=== PATIENT | male | born 1945 | race Caucasian/White ===

== ENCOUNTER → 2016-10-22 | Outpatient (CLI) | payer OTHER ==
[~2016-10-22] MED LIST: DABI150C PO; LISI20TA3 PO; METO1TAB68 PO
[2016-10-22 12:26] LABS: BASO % 0.4 %; BASO ABS # 0.03 K/uL (0-0.2); COMPLETE YES; EOS % 1.9 %; HEMATOCRIT 47.6 % (42-52); IG% 0.1 %; LYMPH % 42.2 %; LYMPH ABS # 2.83 K/uL (1.2-3.4); MEAN CELL VOLUME 95.8 fL (80-100); MEAN CORPUSCULAR HEMOGLOBIN 31.2 pg (25-34); MEAN CORPUSCULAR HGB CONC 32.6 g/dl (32-36); MEAN PLATELET VOLUME 11.6 fL (7.4-10.4); MONO % 10.4 %; PLATELET COUNT 196 K/uL (130-400); RED BLOOD COUNT 4.97 M/uL (4.7-6.1); WHITE BLOOD COUNT 6.71 K/uL (4.8-10.8)
[2016-10-22 12:32] LABS: URINE APPEARANCE CLEAR (CLEAR); URINE BILIRUBIN NEG (NEG); URINE COLOR DK YELLOW; URINE NITRITE NEG (NEG); URINE PH 7.5 (4.5-7.5); URINE SPECIFIC GRAVITY 1.024 (1.000-1.030); UROBILINOGEN NEG (NEG); ZZUR CULT IF INDIC CLEAN CATCH NO
[2016-10-22 12:57] LABS: MANUAL MICROSCOPIC REQUIRED? NO; REVIEW REQ? NO; SULFASALICYLIC ACID POS (NEG)
[2016-10-22 13:09] LABS: ALT/SGPT 24 U/L (12-78); AST/SGOT 19 U/L (15-37); BLOOD UREA NITROGEN 13 mg/dl (7-18); BUN/CREATININE RATIO 10.9 (10-20); CALCIUM 8.9 mg/dl (8.5-10.1); CARBON DIOXIDE 31 mmol/L (21-32); CHLORIDE 107 mmol/L (98-107); CHOLESTEROL 172 mg/dl (0-200); GLUCOSE 89 mg/dl (70-99); SODIUM 142 mmol/L (136-145); TRIGLYCERIDES 163 mg/dl (0-150); VERY LOW DENSITY LIPOPROT CALC 33 mg/dl
[2016-10-22 13:12] LABS: ALB/GLOB RATIO 1.3 (0.9-2); ALKALINE PHOSPHATASE 69 U/L (45-117); CHOLESTEROL/HDL RATIO 4.6; HDL CHOLESTEROL 37 mg/dl; LDL CHOLESTEROL CALCULATED 102 mg/dl
[2016-10-22 13:34] LABS: ESTIMATED AVERAGE GLUCOSE 126 mg/dl; HA1C FLAG Normal (Normal)
== END | disposition home or self-care (01) ==
LOC: C.LABBFT 07:17
PROVIDERS: ATTEND Internal Medicine
DX: R73.01 Impaired fasting glucose (principal); E78.5 Hyperlipidemia, unspecified

== ENCOUNTER → 2016-10-26 | Outpatient (CLI) | payer OTHER | END | disposition home or self-care (01) | LOC: C.LABSPEC 10-09 12:35 | PROVIDERS: ATTEND Internal Medicine | DX: Z12.11 Encounter for screening for malignant neoplasm of colon (principal) ==

== ENCOUNTER 2019-08-09 06:31 | Observation (INO) ==
--- NOTE | 2019-07-13 12:57 | PAT Medication Instructions ---
Medication Instructions Date of Service July 13, 2019 Home Medications Medication Instructions Recorded dabigatran etexilate 150 mg capsule 150 mg PO BID #180 cap 11/23/18 tadalafil 10 mg tablet 10 mg PO UD dabigatran etexilate 150 mg capsule 150 mg PO BID lisinopril 20 mg PO QAM metoprolol succinate 100 mg PO QAM ASK your prescriber and surgeon dabigatran etexilate 150 mg capsule 150 mg PO BID -- must be held for at least 5 days prior to surgery (last dose would be 08/02) for spinal anesthesia. Make sure this is OK with your prescriber before stopping. DO NOT take the morning of surgery lisinopril 20 mg PO QAM Take morning of surgery With a small sip of water, OTHERWISE NOTHING TO EAT OR DRINK AFTER MIDNIGHT: metoprolol succinate 100 mg PO QAM Take evening before surgery tadalafil 10 mg tablet 10 mg PO UD (ok to take if needed) Other Notes If you have any questions please call us at [phone] or [phone] or [phone] or [phone]
--- NOTE | 2019-07-13 13:07 | Anesthesiology Consultation ---
Date of Service July 13, 2019 Assessment & Plan (1) Encounter for pre-operative examination: COVID Status: As of 07/11 nurse assessment, patient denies travel to endemic area, known exposure/sick contacts, symptoms, or testing for coronavirus. Chart Review Chart Review: Acceptable Risk for Surgery and Patient seen in Pre Admission Testing Teaching & Discussion Instructed NPO after midnight before surgery, except medications with 15 cc of water. Medication instructions provided according to the PAT guidelines. Patient made aware Pradaxa must be held x 5 days for spinal anesthesia; he will check with his prescriber before stopping. History Surgery Operation Date: 08/09/19 13:10 Proposed Procedures p Left Total Knee Arthroplasty - Tl Rangel MD Height/Weight Height: 5 ft 8 in Weight: 101.7 kg Allergies Allergy/AdvReac Type Severity Reaction Status Date / Time atorvastatin Allergy Mild MUSCLE Verified 07/10/19 08:06 ACHES rosuvastatin Allergy Mild MUSCLE Verified 07/10/19 08:06 ACHES Medications Home Medications Medication Instructions Recorded Confirmed Last Taken tadalafil 10 mg tablet 10 mg PO UD tab 09/27/18 07/10/19 Unknown dabigatran etexilate 150 mg capsule 150 mg PO BID #180 cap 11/23/18 07/10/19 Unknown lisinopril 20 mg PO QAM 04/21/19 07/10/19 Unknown metoprolol succinate 100 mg PO QAM 04/21/19 07/10/19 Unknown Past Medical History Medical History (Updated 07/14/19 @ 13:09 by Luis Carlos Hanley) Atrial [facility]. On Pradaxa. Hyperlipidemia Hypertension Impaired fasting glucose Male erectile disorder of organic origin Osteoarthritis of knee Prediabetes Tinnitus Traumatic wound Right leg traumatic wound secondary to shrapnel in [place] Exercise / Class Metabolic Activity II 4-5 Yardwork/Stairs/Walk up hill (Denies CP or SOBw ith 1 FOS) Past Family History Family History Brother Diabetes Hodgkin disease Mother Ovarian cancer Past Surgical History Surgical History History of tooth extraction S/P cataract extraction R/L S/P total knee arthroplasty Status post right total knee arthroplasty March 2010 in [place], [place] Past Anesthesia History No Hx of Anesthesia Complications and No Family Hx of Anesthesia Complications History of PONV No Hx of PONV and No Hx of Motion Sickness Social History Smoking Status: Former smoker Do You Dip or Chew Tobacco: No Smoking End Date: QUIT AGE 30 YRS Hx Alcohol Use: Yes Alcohol type: wine alcohol intake frequency: a few times a month Hx Substance Use: No substance use type: does not use Review of Systems Pt denies any recent chest pain, shortness of breath, palpitations, cough, fever or URI. Physical Exam Vital Signs BP: 116/80 P: 75bpm SPO2: 96% RA T: 98.2 F R: 16 ENMT Mouth: + dentures and + edentulous Thyromental Distance: > or= 3.5 Finger Breadths (3.5) Mallampati Class: I Neck normal visual inspection and + facial hair (states will be shaved prior to surgery); neck extension not limited Respiratory normal respiratory effort Auscultation: lungs clear to auscultation bilaterally Cardiovascular Rate/Rhythm: regular rate; + abnormal rhythm (irregularly irregular) Heart Sounds: no murmur Extremities: no edema Testing Laboratory Results 07/13/19 13:21 07/13/19 13:21 PT 12.5 Seconds (9.0-12.0) H 07/13/19 13:21 INR 1.2 (0.9-1.1) H 07/13/19 13:21 APTT 42.7 Seconds (21.0-31.0) H 07/13/19 13:21 Urine Color Dark Yellow 07/13/19 Unknown Urine Appearance Clear (Clear) 07/13/19 Unknown Urine pH 5.0 (4.5-7.5) 07/13/19 Unknown Ur Specific Coulters 1.021 (1.000-1.030) 07/13/19 Unknown Urine Protein Negative (Negative) 07/13/19 Unknown Urine Glucose (UA) Negative (Negative) 07/13/19 Unknown Urine Ketones Negative (Negative) 07/13/19 Unknown Urine Nitrite Negative (Negative) 07/13/19 Unknown Ur Leukocyte Esterase Negative (Negative) 07/13/19 Unknown Blood Type A Negative 07/13/19 13:21 Antibody Screen NEGATIVE 07/13/19 13:21 Electrocardiogram Date: 07/13/19 Findings: + AFIB @ (67bpm) Chest X-Ray Date: 07/13/19 Findings: + NAD
--- NOTE | 2019-07-13 13:47 | XRay Report ---
XR chest Pre-admission PA/Lat CLINICAL HISTORY: PAT COMPARISON STUDY: No previous studies for comparison. FINDINGS: The bones soft tissues and hemidiaphragms are normal. The cardiomediastinal silhouette is n ormal. The lungs are clear. The pulmonary vasculature is normal. IMPRESSION: Negative chest. ACT 112: Negative or not required by law. The above report was generated using voice recognition software. It may contain grammatical, syntax or spelling errors. Electronically signed by: Chirag Bonds M.D. 07/13/2019 1:46 PM
[2019-07-13 14:52] LABS: Basophils # (auto) 0.03 K/uL (0-0.2); Basophils % (auto) 0.6 %; Eosinophils % (auto) 1.8 %; Hematocrit (blood only) 43.6 % (42-52); Hemoglobin 14.7 g/dL (14.0-18.0); Lymphocytes # (auto) 2.35 K/uL (1.2-3.4); Lymphocytes % (auto) 43.2 %; Mean Corpuscular Hemoglobin 31.4 pg (25-34); Mean Corpuscular Hgb Conc 33.7 g/dL (32-36); Mean Corpuscular Volume 93.2 fL (80-100); Mean Platelet Volume 11.8 fL (7.4-10.4); Monocytes % (auto) 9.2 %; Neutrophils # (auto) 2.46 K/uL (1.4-6.5); Neutrophils % (auto) 45.2 %; Platelet Count 187 K/uL (130-400); RDW Coefficient of Variation 13.3 % (11.5-14.5); RDW Standard Deviation 45.4 fL (36.4-46.3); Red Blood Count 4.68 M/uL (4.7-6.1); White Blood Count 5.44 K/uL (4.8-10.8)
[2019-07-13 15:12] LABS: INR 1.2 (0.9-1.1); Partial Thromboplastin Ratio 1.5; Partial Thromboplastin Time 42.7 Seconds (21.0-31.0); Prothrombin Time 12.5 Seconds (9.0-12.0)
[2019-07-13 15:20] LABS: BUN Creatinine Ratio 13.5 (10-20); Calcium 8.9 mg/dl (8.5-10.1); Creatinine Clr Calc Pharmacy 64.2 ml/min; Est GFR (African American) 71.7; Est GFR (Non-African American) 61.9
[2019-07-13 16:18] LABS: Appearance Urine Clear (Clear); Bilirubin Urine Negative (Negative); Blood Urine Negative (Negative); Color Urine Dark Yellow; Glucose Urine UA Negative (Negative); Ketones Urine Negative (Negative); Leukocyte Esterase Urine Negative (Negative); Nitrite Urine Negative (Negative); Protein Urine Negative (Negative); Specific Gravity Urine 1.021 (1.000-1.030); Urobilinogen Urine Negative (Negative)
--- NOTE | 2019-07-13 17:07 | Electrocardiogram Report ---
Test Reason : Blood Pressure : / mmHG Vent. Rate : 067 BPM Atrial Rate : 026 BPM P-R Int : 000 ms QRS Dur : 080 ms QT Int : 402 ms P-R-T Axes : 000 058 025 degrees QTc Int : 424 ms Atrial fibrillation Abnormal ECG When compared with ECG of 10-DEC-2011 08:52, Atrial fibrillation has replaced Sinus rhythm Questionable change in QRS axis Nonspecific T wave abnormality, improved in Inferior leads Nonspecific T wave abnormality no longer evident in Lateral leads Confirmed by Raji Collins ([id number]) on 07/13/2019 5:07:25 PM Referred By: Tl Rangel Confirmed By:Raji Collins
--- NOTE | 2019-07-19 16:06 | History & Physical Report ---
Date of Service July 19, 2019 Assessment & Plan (1) Degenerative arthritis of left knee: Postoperative prescriptions for Percocet will be provided at discharge from the hospital. The patient has already seen his PCP as well as electromechanical engineer. He will hold his Pradaxa for 5 days prior to surgery. Anticipate discharge to home with home health services. Prescription was provided for a walker. The patient is aware of the COVID-19 risks associated with surgery. He is currently asymptomatic of any COVID-19 symptoms. He has had no known contacts. The patient will have nasal swab testing for COVID-19 prior to surgery and results will be made available to him before proceeding. History of Present Illness Chief Complaint: Left knee pain Primary Care Provider: Rodriguez Presley MD This 73-year-old white male presents today with a longstanding history of left knee pain, for over 7 years. Pain has become worse with time. He is scheduled to undergo a left knee total knee arthroplasty on 08/09/2019. He has tried activity modification, oral pain medication, oral anti-inflammatories, viscosupplementation, and cortisone injections. They are no longer providing comfort. Pain is worse with weightbearing and ambulation. Pain is affecting his ADLs. He denies any numbness or tingling. The patient has a history of right total knee arthroplasty done elsewhere greater than 8 years ago. He elects to proceed with the same on the left. Preoperative imaging has been obtained. Allergies Allergy/AdvReac Type Severity Reaction Status Date / Time atorvastatin Allergy Mild MUSCLE Verified 07/10/19 08:06 ACHES rosuvastatin Allergy Mild MUSCLE Verified 07/10/19 08:06 ACHES Home Medications Home Medications Medication Instructions Recorded Confirmed Type tadalafil 10 mg tablet 10 mg PO UD tab 09/27/18 07/10/19 History dabigatran etexilate 150 mg capsule 150 mg PO BID #180 cap 11/23/18 07/10/19 Rx lisinopril 20 mg PO QAM 04/21/19 07/10/19 History metoprolol succinate 100 mg PO QAM 04/21/19 07/10/19 History Past Med/Surg History Medical History Atrial fibrillation Follows with DR [facility]. On Pradaxa. Hyperlipidemia Hypertension Impaired fasting glucose Male erectile disorder of organic origin Osteoarthritis of knee Prediabetes Tinnitus Traumatic wound Right leg traumatic wound secondary to shrapnel in [place] Surgical History History of tooth extraction S/P cataract extraction R/L S/P total knee arthroplasty Status post right total knee arthroplasty March 2010 in [place], [place] Family History (Updated 07/19/19 @ 16:02 by Ike Freitas PA-C) Brother Diabetes Hodgkin disease Mother Ovarian cancer Father Heart disease Social History Preferred Language: Malay Chief Orthoptist Required: No Beliefs That Will Affect Care: None marital status: Current Living Situation: Spouse current occupational status: 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 General: Well-developed, well-nourished, elderly white male in no acute distress. Sitting in a chair. Alert and oriented. Skin: Warm and dry with good turgor. No rashes or lesions. No ecchymosis or erythema. Surgical scar present on his right knee. HEENT: Normocephalic, atraumatic. Eyes: PERRLA, EOMI. Oropharynx and nares exam deferred due to COVID precautions. Heart: Irregularly irregular. No murmurs, gallops or rubs. Lungs: Clear to auscultation bilaterally, no crackles, rhonchi or wheezing, good air movement. Abdomen: Mildly obese, bowel sounds present x4, soft, nontender. No organomegaly. No masses. Musculoskeletal: Left knee evaluation reveals no intraarticular effusion. No redness or warmth. He has full terminal extension. Flexion to greater than 110 degrees. Strength is 5/5 with good quad tone. Varus alignment. He has focal discomfort with palpation over the medial joint line. No lateral joint line discomfort with palpation today. Stable collateral ligaments. No defect in the patellar tendon or quadriceps tendon. Ambulates with a slightly antalgic gait. Neurologic: Gross sensation is intact across both lower extremities by soft touch. Peripheral pulses are 2+. Results & Data Results & Data ([facility]) Diagnostic Findings Radiographic imaging obtained today was reviewed by me and will be read by radiology. He has significant degenerative changes in the left knee with periarticular osteophytes, subchondral sclerosis, and joint space narrowing. He is almost [id number] in the medial compartment. Slight varus alignment.
[~2019-08-09 06:31] MED LIST changes: +CEFAZOLIN 2000MG 2,000 MG/15 ML SYR IV SCH; -DABI150C PO; -LISI20TA3 PO; +LR 500ML BOLUS, THEN 15ML/HR IV SCH; +LR 60ML/HR IV SCH; -METO1TAB68 PO; +ROPIVACAINE 0.5% HCL/PF 150 MG, BUPIVACAINE 0.5% MPF 30 ML, EPINEPHrine 0.15 MG, Ketoro... INFIL SCH; +TRANEXAMIC ACID 1,000 MG **IV Pre-op IV SCH; +TRANEXAMIC ACID 1,000 MG x 1 **For Topical Use TOP SCH
--- NOTE | 2019-08-09 06:53 | History & Physical Bridge Note ---
Date of Service August 09, 2019 History & Physical Bridge Note I have examined the patient, reviewed the History & Physical and in the interval since the performance of the History & Physical I have noted the following changes of clinical significance: consent obtained/site marked/covid screen negative.no changes noted
[2019-08-09] MEDS ORDERED: BUPIVACAINE 0.5 % 5 MG/1 ML PF 10ML VIAL ONE (07:24)
[2019-08-09] MEDS ORDERED: ROPIVACAINE 0.5% 5 MG/ML 30 ML VIAL ONE (07:24)
[2019-08-09] MEDS ORDERED: EPINEPHrine INJ 1 MG/ML AMP ONE (07:24)
[2019-08-09] MEDS ORDERED: fentaNYL citrate 100 MCG/2 ML VIAL ONE (07:43)
[2019-08-09] MEDS ORDERED: PROPOFOL IV EMULSION 10 MG/ML 20 ML VIAL IV ONE (07:43)
[2019-08-09] MEDS ORDERED: LIDOCAINE HCL 2% 2 ML VIAL/AMP(20MG/ML) INFIL ONE (07:43)
[2019-08-09] MEDS ORDERED: MIDAZOLAM HCL 1 MG/ML 2ML VIAL ONE ×2 (07:43→09:17)
[2019-08-09] MEDS ORDERED: ORTHO JOINT ANESTHETIC ONE (08:37)
[2019-08-09] MEDS ORDERED: ePHEDrine sulfate 50 MG/ML AMP IV PRN (08:46)
[2019-08-09] MEDS ORDERED: ATROPINE SULFATE 0.1 MG/ML 10ML SYR IV PRN (08:46)
--- NOTE | 2019-08-09 10:36 | Post Operative Brief Note ---
Immediate Post Op Note v1 Date of Surgery August 09, 2019 Pre & Post Diagnosis Operation Date: 08/09/19 08:50 Pre-Op Diagnosis: Left Knee Degenerative Joint Disease Post-Op Diagnosis: Left Knee Degenerative Joint Disease I identified the patient and participated in the time-out.: Yes Procedure Operation Date: 08/09/19 08:50 Actual Procedures p Left Total Knee Arthroplasty, Cemented(Left) - Tl Rangel MD Surgeon Tl Rangel MD Revenue Collector eli/heena Estimated Blood Loss 25 Findings Consistent with Post-Op Diagnosis
--- NOTE | 2019-08-09 10:43 | Operative Report ---
Post Operative Report Pre & Post Diagnosis Operation Date: 08/09/19 08:50 Pre-Op Diagnosis: Left Knee Degenerative Joint Disease Post-Op Diagnosis: Left Knee Degenerative Joint Disease I identified the patient and participated in the time-out.: Yes Procedure Operation Date: 08/09/19 08:50 Actual Procedures p Left Total Knee Arthroplasty, Cemented(Left) - Tl Rangel MD Surgeon HOWARD Rangel MD Evp [employer] Experience Strategy eli/heena Estimated Blood Loss 25 Findings Consistent with Post-Op Diagnosis Specimens see operative report Drains none Complications none Disposition Accompanied Patient To Recovery: Yes Disposition: Recovery Room Indications This 73-year-old white male presented to the office with complaints of persisting left knee pain. He had tried conservative care measures without improvement. He previously had a right total knee arthroplasty and has done well with that. He elected to proceed with the same on the left. Preoperative imaging was obtained. Description of Procedure Patient was given a spinal anesthetic and then taken to the operating room where he was given sedation. He was prepped and draped in the usual sterile fashion. Please see Dr. Rangel's operative report for specifics of the procedure. I was present for the entire case from initial patient positioning through final wound closure. Assistance was provided in tissue retraction, hemostasis, trial implant placement, final implant placement, and final wound closure. Patient was taken to the recovery room in satisfactory condition. I attest to the content of the Intraoperative Record and any orders documented therein. Any exceptions are noted below.
--- NOTE | 2019-08-09 11:15 | XRay Report ---
TWO VIEWS LEFT KNEE CLINICAL HISTORY: Postoperative examination. FINDINGS: AP and crosstable lateral portable views of the left knee are obtained. A left knee arthrop lasty is in near anatomic alignment. There has been undersurface remodeling of the patella. No acute fracture is seen. There are expected postoperative changes around the knee including skin clips, soft tissue edema, and subcutaneous gas. IMPRESSION: Expected postoperative changes status post left knee arthroplasty. No acute fracture is s een. ACT 112: Negative or not required by law. Electronically signed by: Jose Carlos Orona M.D. 08/09/2019 11:14 AM
--- NOTE | 2019-08-09 11:22 | Operative Report (OR) ---
DATE OF OPERATION: 08/09/2019 SURGEON: Tl Rangel MD. MICA INSPECTOR: Dr. Ibrahim. SECOND MICA INSPECTOR: Ike Freitas PA-C. PREOPERATIVE DIAGNOSIS: Osteoarthritis, left knee. POSTOPERATIVE DIAGNOSIS: Osteoarthritis, left knee. OPERATION PERFORMED: Cemented left total knee replacement. SUMMARY OF IMPLANTS: Four narrow left femur, posterior cruciate substituting 4 mobile bearing tray, size 4 spacer 4 x 10 mm posterior cruciate substituting oval dome 3 peg patella size 41, 2 bags of Palacos G cement. ESTIMATED BLOOD LOSS: 25 mL. CRYSTALLOID: Per Anesthesia. BONE PATHOLOGY: Pending. DESCRIPTION OF PROCEDURE: The patient appropriately identified, site verified, consent verified. Antibiotics confirmed as being given. Left lower extremity was prepped and draped in usual routine fashion. Midline exposure was utilized. Parapatellar arthrotomy was performed. Synovectomy completed. Osteophytes along the medial margin of the femur and superior margin of the femur resected. There was grade 4 disease on the entire medial half of the tibia and on the weightbearing surface of the medial compartment. There was grade 3 disease on the entire patellar surface, grade 4 disease on the medial trochlea. Lateral compartment was relatively healthy. Cruciates were resected. The menisci resected. The distal femur was then resected 12 mm, the proximal tibia resected 4 mm. The extension gap was excellent. Femur was sized to 4. Appropriate cutting block applied and the anterior and posterior condylar and chamfer cuts made. The flexion gap was excellent. Tibia was then broached and reamed to a size 4 and size 4 tibia and femur placed. Patella tracked well. The patella was resected leaving 15 mm and a 41 button was best. Seating holes made and the trial tracked well. The Orthomix was then injected all around the knee. The trial elements were removed. The knee was then soaked in the TXA for 2 minutes and then the knee irrigated with Betadine and Pulsavac and then the permanent cemented in position. Tibia, femur and patella in that order. At 14 minutes, the tourniquet deflated. Minor bleeding points controlled with electrocautery. EBL was roughly 25 mL. The trial spacer was removed. No cement removal was required. Wound was irrigated one final time. The permanent liner seated. The knee reduced and then closed at 30-40 degrees of flexion with #2 Vicryl, 2-0 Vicryl and stainless steel clips. Appropriate dressing applied and the patient transferred to Recovery Room in satisfactory condition having tolerated the procedure well. PERIOPERATIVE SITUATION: Medically cleared male with intractable knee pain with physical exam and x-ray now consistent with medial compartment disease. He has failed conservative management for years. Has knee replacement on the right and wants to have knee replacement on the left. I attest to the content of the Intraoperative Record and any orders documented therein. Any exception s are noted below.
--- NOTE | 2019-08-09 11:53 | Anesthesiology Progress Note ---
Date of Service August 09, 2019 Anesthesia Post Procedure Vital Signs Vital Signs: Temp Pulse Pulse Resp BP BP Pulse Ox 08/09/19 11:45 73 13 114/75 96 08/09/19 11:30 36.3 C L 68 12 122/72 99 08/09/19 11:20 67 13 104/74 99 08/09/19 11:10 80 19 102/76 99 08/09/19 11:00 77 12 103/65 98 08/09/19 10:50 86 15 97/55 L 98 08/09/19 10:43 36.0 C L 99 H 12 100/63 97 08/09/19 08:05 70 20 126/73 96 08/09/19 06:54 37.1 C 74 18 135/81 97 Pain Intensity Left Knee: Pain Intensity: 0 Transfer of Care Handoff Completed per policy Notes Mental Status: alert / awake / arousable Patient Amnestic to Procedure: Yes Nausea / Vomiting: adequately controlled Pain: adequately controlled Airway Patency, RR, SpO2: stable & adequate BP & HR: stable & adequate Hydration State: stable & adequate Neuraxial Anesthesia: was administered and sensory block is resolving Anesthetic Complications: no major complications apparent
[2019-08-09] MEDS ORDERED: OXYCODONE HCL IR 5 MG TAB (IMMEDIATE RELEASE) PO PRN (12:37)
[2019-08-09] MEDS ORDERED: MAGNESIUM HYDROXIDE SUSP 30 ML UDC PO PRN (12:37)
[2019-08-09] MEDS ORDERED: ONDANSETRON INJ 2 MG/ML 2 ML VIAL IV PRN (12:37)
[2019-08-09] MEDS ORDERED: ALUMINUM/MAGNESIUM SUSP 30 ML UDC PO PRN (12:37)
[2019-08-09] MEDS ORDERED: DiphenhydrAMINE HCL 50 MG/ML VIAL IV PRN (12:37)
[2019-08-09] MEDS ORDERED: TAMSULOSIN HCL 0.4 MG CAP PO PRN (12:37)
[2019-08-09] MEDS ORDERED: NON-FORMULARY MEDICATION (Tadalafil 10 MG) PO SCH (12:37)
[2019-08-09] MEDS ORDERED: HYDROmorphone INJ 0.5 MG/0.5 ML SYR IV PRN (12:37)
[2019-08-09] MEDS ORDERED: bisacodyL 10 MG SUPP PR PRN (12:37)
[2019-08-09] MEDS ORDERED: NALOXONE HCL 0.4 MG/1 ML VIAL/CARP IV PRN (12:37)
[2019-08-09] MEDS ORDERED: METOCLOPRAMIDE HCL INJ 5 MG/ML 2 ML VIAL IV PRN (12:37)
--- NOTE | 2019-08-09 12:53 | Operative Report ---
Post Operative Report Pre & Post Diagnosis Operation Date: 08/09/19 08:50 Pre-Op Diagnosis: Left Knee Degenerative Joint Disease Post-Op Diagnosis: Left Knee Degenerative Joint Disease I identified the patient and participated in the time-out.: Yes Procedure Operation Date: 08/09/19 08:50 Actual Procedures p Left Total Knee Arthroplasty, Cemented(Left) - Tl Rangel MD Surgeon Tl Rangel MD Bell Spinner Sousaphones eli/heena Estimated Blood Loss 25 Findings Consistent with Post-Op Diagnosis Specimens left knee bone cuts Complications none Disposition Accompanied Patient To Recovery: Yes Disposition: Recovery Room Description of Procedure Supine, standard prep and drape, tourniquet, time out Left Total Knee Arthroplasty, Cemented Please see Dr Rangel's procedure notes for specific details I was present throughout the case, assisted for wound closure and transferred the patient to PACU in stable condition I attest to the content of the Intraoperative Record and any orders documented therein. Any exceptions are noted below.
--- NOTE | 2019-08-09 13:22 | Progress Notes ---
DATE: 08/09/2019 SUBJECTIVE: Postop check status post left knee replacement. The patient is doing well, has no issues. He is sitting up, eating lunch. Denies chest pain, shortness of breath, fever, chills, nausea, vomiting or headache. OBJECTIVE: Vital signs are stable, he is afebrile. Postop x-rays look excellent. ASSESSMENT: Doing well. Discharge plans for tomorrow. To be evaluated by case management.
[2019-08-09] MEDS: SODIUM CHLORIDE 0.9% 1000ML 1,000 ML IV SCH (13:52)
[2019-08-09] MEDS: ACETAMINOPHEN 500 MG TAB PO SCH ×2 (13:52→21:47)
[2019-08-09] MEDS: KETOROLAC TROMETHAMINE 15 MG/ML VIAL IV SCH ×2 (13:53→18:51)
--- NOTE | 2019-08-09 14:09 | Discharge Summary (DS) ---
CHIEF COMPLAINT: Left knee pain. HISTORY OF PRESENT ILLNESS: The patient underwent elective left total knee arthroplasty. Hospital course has been uneventful. He will resume his Pradaxa as usual. He denied any issues with the procedure. His postoperative x-rays look excellent. PAST MEDICAL HISTORY: Remarkable for atrial fibrillation, hyperlipidemia, hypertension, erectile dysfunction, osteoarthritis, prediabetes, tinnitus, traumatic wound to right leg with shrapnel in [place]. PAST SURGICAL HISTORY: Remarkable for cataract surgery, right total knee replacement in 2010 in [place]. FAMILY HISTORY: Reveals his brother had Hodgkin's disease, diabetes. Mother had ovarian cancer. Father had heart disease. SOCIAL HISTORY: Reveals that he is . 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 Feels safe at home. Quit smoking years ago, secondhand exposure from his parents. Social history of alcohol. REVIEW OF SYSTEMS: Reveals no chest pain, shortness of breath, fever, chills, nausea, vomiting or headache. ASSESSMENT: Doing well status post left total knee arthroplasty. Continue with postoperative care pathway. Discharge tomorrow if he does well overnight.
[2019-08-09] MEDS: CEFAZOLIN 2000MG 2,000 MG/15 ML SYR IV SCH (16:18)
[2019-08-09] MEDS: FERROUS GLUCONATE 324 MG TAB PO SCH (16:19)
[2019-08-09] MEDS: ASCORBIC ACID 500 MG TAB PO SCH (16:19)
[2019-08-09] MEDS ORDERED: SENNA 8.6 MG TAB PO SCH (21:00)
[2019-08-09] MEDS: DOCUSATE SODIUM 100 MG CAP PO SCH (21:47)
[2019-08-10] MEDS: CEFAZOLIN 2000MG 2,000 MG/15 ML SYR IV SCH (00:14)
[2019-08-10] MEDS: KETOROLAC TROMETHAMINE 15 MG/ML VIAL IV SCH ×2 (00:15→05:41)
[2019-08-10] MEDS: SODIUM CHLORIDE 0.9% 1000ML 1,000 ML IV SCH (00:16)
[2019-08-10 05:35] LABS: Hematocrit (blood only) 37.5 % (42-52); Hemoglobin 12.8 g/dL (14.0-18.0); Mean Corpuscular Hemoglobin 31.5 pg (25-34); Mean Corpuscular Hgb Conc 34.1 g/dL (32-36); Mean Corpuscular Volume 92.4 fL (80-100); Mean Platelet Volume 11.1 fL (7.4-10.4); Platelet Count 159 K/uL (130-400); RDW Coefficient of Variation 13.4 % (11.5-14.5); RDW Standard Deviation 45.2 fL (36.4-46.3); Red Blood Count 4.06 M/uL (4.7-6.1); White Blood Count 11.84 K/uL (4.8-10.8)
[2019-08-10] MEDS: ACETAMINOPHEN 500 MG TAB PO SCH (05:41)
[2019-08-10 06:13] LABS: BUN Creatinine Ratio 14.6 (10-20); Calcium 8.3 mg/dl (8.5-10.1); Creatinine Clr Calc Pharmacy 55.4 ml/min; Est GFR (African American) 60.2; Est GFR (Non-African American) 51.9; Potassium 4.6 mmol/L (3.5-5.1)
[2019-08-10] MEDS ORDERED: dexAMETHasone 10 MG in SYRINGE 0 ML IV SCH (08:00)
--- NOTE | 2019-08-10 08:20 | Progress Notes ---
DATE: 08/10/2019 SUBJECTIVE: Postop check status post left total knee replacement. He is doing well, has no major issues. He has excellent motion, excellent strength. Neurovascular check is normal. Hematocrit stable. Denies any chest pain, shortness of breath, fever, chills, nausea, vomiting or headache. ASSESSMENT: Overall, doing well. PLAN: To discharge home today as well as standard anticoagulation that he was on preoperatively. Start that 24 hours postop. Follow up in 2 weeks for staple removal.
--- NOTE | 2019-08-10 08:22 | Orthopedic Progress Note ---
Date of Service August 10, 2019 Assessment & Plan (1) S/P total knee replacement using cement: Left knee dressing was changed today by me. New pressure dressing was applied. PT/OT this morning. Anticipate discharge to home today with home health services. Resume his Pradaxa today. Follow-up in the office in 2 weeks as scheduled for staple removal. Call the office with any other concerns. Admission and Anticipated Discharge Date Admission Date: August 09, 2019 Subjective Patient is seen in his room this morning. States he has no discomfort. Denies any chest pain, shortness of breath, nausea, vomiting, or abdominal pain, overnight. He feels ready for discharge to home. Knee pain is tolerable. Review of Systems Review of Systems: unchanged from yesterday Physical Exam Physical Exam: General: Well-developed, well-nourished, elderly white male, in no acute distress. Laying on the bed. Alert and oriented. Skin: Warm dry with good turgor. No rashes or lesions. Expected postoperative edema at his left knee. Musculoskeletal: Postoperative dressings are dry. Upon removal, he has scant dried drainage on the dressings. No active bleeding. [place] are intact. Wound edges are well approximated. Expected postoperative edema. No ecchymosis yet. Patient is able to perform a straight leg raise. Intact motor function to his toes and ankle. Neurologic: Gross sensation is intact across both lower extremities by soft touch. Peripheral pulses are 2+. Results & Data ([facility]) Vital Signs (Past 12 Hours) Vital Signs Temp Pulse Resp BP Pulse Ox 08/10/19 07:39 36.4 C L 74 16 124/74 95 08/10/19 04:10 36.6 C 72 18 126/71 95 08/09/19 23:25 36.8 C 85 20 123/79 95 Laboratory Results H&H obtained this morning are 12.8 and 37.5. BMP is unremarkable.
[2019-08-10] MEDS: DOCUSATE SODIUM 100 MG CAP PO SCH (08:25)
[2019-08-10] MEDS: FERROUS GLUCONATE 324 MG TAB PO SCH (08:26)
[2019-08-10] MEDS: ASCORBIC ACID 500 MG TAB PO SCH (08:26)
[2019-08-10] MEDS ORDERED: lisinopriL 20 MG TAB PO SCH (09:00)
[2019-08-10] MEDS ORDERED: MULTIVITAMIN TAB PO SCH (09:00)
[2019-08-10] MEDS ORDERED: METOPROLOL SUCC 50MG EXT REL TAB PO SCH (09:00)
[2019-08-10] MEDS ORDERED: DABIGATRAN ETEXILATE 75 MG CAP PO SCH (09:00)
== END 2019-08-10 11:03 | disposition home health service (06) ==
LOC: 3E 06:31 → ASU 06:31

== ENCOUNTER 2024-12-12 11:23 | Inpatient (IN) ==
[2024-12-12] MEDS ORDERED: SODIUM CHLORIDE 0.9% 100 ML IV PRN (11:46)
--- NOTE | 2024-12-12 11:57 | Emergency Department Note ---
Impression & Plan Symptomatic anemia, AL amyloidosis, Near syncope, Atrial fibrillation, Fall down stairs ED Provider Note NAME: DOLORES MONTERO AGE: 79 SEX: M : 1945 ARRIVES VIA: Walk-In INFORMANT: Patient ED PROVIDER(S): Parveen Denton MD CHIEF COMPLAINT: Near syncope, weakness, referred. PLAN: Disposition: Admit MEDICAL DECISION MAKING: The patient is a pleasant 79-year-old gentleman with a past medical history of atrial fibrillation on Pradaxa, history of amyloidosis, hypertension, hyperlipidemia who presents to the emergency department via walk-in accompanied by his referred by his cardiology office after he had presented there for assessment of episodes of weakness and near syncope. Patient had reported that a week ago he had had an episode and rolled down his carpeted stairs. The patient's insisted he come to the hospital at that time but he had declined as he did not feel any pain. Over the course of a couple of days the patient continued to appear normal and had normal mentation and normal ambulation and so they suspected he did not suffer any serious injury. They add that the patient has had extensive testing outpatient for GI bleeding which he understands has been negative. He denies blood in his stool. He reports the stool is black but he is due to taking oral iron supplements. He has that he had "scans" of his chest and abdomen in the past week after his fall down the stairs and so he suspected he had no injuries. However, today they were preparing to come to their schedule appointment, however with cardiology and he did have an episode of lightheadedness and nausea but did not vomit. On evaluation the patient no acute distress, afebrile with heart in the 100s and vital signs otherwise stable. He exhibits mild pallor. He appears clinically dry. Head is atraumatic. There is no CT L-spine test palpation or step-offs. No distracting injuries. He exhibits normal strength in all extremities without focal deficits. He exhibits chronic left shoulder pain with limited range of motion. EKG without overt acute ischemia. CXR negative for acute cardiopulmonary process per my personal preliminary review/interpretation. WBC 11K with neutrophilia but no left shift, nonspecific. Platelets wnl. H/H is low at 5.2/17.1. Patient did consent to blood transfusion. Unfortunately, due to the patient's Darzalex treatment for his amyloidosis patient's antibody screen was unable to be cleared for transfusion for local products and per blood bank required send out to [facility] for further clarification. It was anticipated to take approximately 4-6 hours for this. Given the patient was hemodynamically stable with suspected chronic gradual anemia emergent transfusion with massive transfusion protocol was deferred given we are unable to definitively identify presence or absence of antigens at this time. Chemistry without metabolic acidosis. LFTs unremarkable. CPK 347. Initial high sensitivity troponin 68 with repeat, 69, stable and nonspecific lipase within normal limits. TSH within the limits. CT of the head, C-spine, chest, abdomen pelvis were negative for acute abnormalities. Patient and did agree with plan for admission for further management. Case was discussed [place]. [place] [facility], who will evaluate the patient for admission. Further management per admitting team. Triage Nursing notes reviewed and agree them. Prior/external medical records reviewed Vital Signs: reviewed Differential diagnosis: Infection, dehydration, metabolic abnormality, hypo/hyperglycemia, electrolyte disturbance, anemia, hypoxia, cardiac sources, intracerebral event, toxicologic, neurologic, as well as other pathologies. ER treatment provided: See below. Diagnostics interpreted by me: ECG: Atrial fibrillation, 96 bpm, no ectopy, right bundle wrench block, T wave abnormality, no overt ST elevation or depression, QTc 525, QRS 134. Similar to December 01, 2024. Cardiac Monitoring: An order for continuous cardiac monitoring was placed and demonstrated Atrial fibrillation, 96 bpm, no ectopy. Laboratory studies: See below Imaging studies: See below Consultation(s): Case was discussed with Dr. Hills [facility] [place], who will evaluate the patient for admission. HPI: Per MDM. ROS: See above HPI for pertinent positives & negatives. A total of 10 systems reviewed and were otherwise negative. VITALS:See Below PHYSICAL EXAMINATION: Primary Survey Airway: Intact Breathing: Normal, breath sounds equal bilaterally Circulation: Skin warm, distal pulses 2+, capillary refill less than 2 seconds Disability Pupils: Equal and reactive to light. GCS: 15, E = 5 V=5 M= 5 Motor Function: Moves all extremities. Sensory: No deficits Secondary Survey GEN: Well developed and well-nourished, mild pallor. HEAD: Normocephalic, atraumatic. EYES: Pupils round reactive to light, conjunctiva clear, extraocular movements intact, no raccoons eyes ENT: No fluid in external acoustic canals, no hemotympanum, no sim's sign, nares patent, no septal hematoma, oropharynx clear NECK: No JVD, midline trachea, No midline tenderness to palpation or step-offs. HEART: Regular rate and rhythm LUNGS: Clear to auscultation bilaterally. CHEST: Chest wall non-tender, no bruising/deformity ABD: No Du-Gong's or Nichols's sign, soft, non-tender, no rebound or guarding, PELVIS: Stable to rock BACK: No step offs or deformities, T-L spine non tender EXT: 2+ global pulses, moving all extremities well, +5/5 muscle strength globally NEURO: Normal sensorium. Cranial nerves II-XII grossly intact. 5/5 strength and SILT x 4 extremities. ED COURSE: Critical Care: I have personally spent greater than 35 minutes of critical care time in the direct management of this patient. This includes bedside care, interpretation of diagnostic studies, and testing, discussion with consultants, patient, and family members, and other required patient management activities. This 35 minutes is in excess of all separately billable procedures. 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 Smalls Prediabetes Anemia Cardiac amyloidosis Degenerative arthritis BPH (benign prostatic hyperplasia) Maintenance chemotherapy First of every month CAD (coronary artery disease) CKD (chronic kidney disease) stage 3, GFR 30-59 ml/min Atrial fibrillation, permanent Follows with [facility] cardio Male erectile disorder of organic origin Traumatic wound Hx Right leg traumatic wound secondary to shrapnel in [place] Surgical History History of total knee replacement R/L Hx of cardiac catheterization (11/04/22) Prior to amloidosis dx- no stents History of bone marrow biopsy History of biopsy of kidney History of tooth extraction S/P cataract extraction R/L Family History Brother Hodgkin disease Diabetes Mother Ovarian cancer Father Heart disease Myocardial infarction Sister Breast cancer Grandfather Myocardial infarction Other No family history of adverse response to anesthesia Denies family history of Prostate cancer Colorectal cancer Pulmonary embolism Social History Smoking Status: Former smoker Tobacco Type: Cigarettes Age Started Using Tobacco: 16; Age Quit Using Tobacco: 33; packs per day: 1.5; Cigarettes Per Day: 1.5 packs a day.; Second Hand Exposure: Yes; Do You Dip or Chew Tobacco: No; Hx Alcohol Use: Yes Alcohol type: wine Alcohol Intake Frequency: Monthly or Less Hx Substance Use: No Preferred Language: Albanian Communication Ability: Effective Visual Impairment: No Limitations Hearing Ability: Use of Hearing Aid Watch Assembler Required: No Beliefs That Will Affect Care: None marital status: Current Living Situation: Spouse 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 How many Children do You have: 0 Feels Safe at Home: Yes Childhood Exposure to Second-Hand Smoke: Yes Diet: gluten free and other Diet Comment: dairy free & gluten free only due to how spouse eats during the past year weight has: remained stable Dental Care, Regularly: No Physical Activity Frequency: Daily Physical Activity Frequency Comment: muscle strengthening, 20 minutes Seatbelt Use: always Sunscreen Use: Yes Do you think of yourself as: straight/heterosexual Gender Identity: Male Assistive Devices: Cane Allergies Allergies Allergy/AdvReac Type Severity Reaction Status Date / Time montelukast AdvReac Severe Brain fog Verified 12/12/24 10:44 atorvastatin AdvReac Intermediate Muscle Verified 12/12/24 10:44 aches rosuvastatin AdvReac Intermediate Muscle Verified 12/12/24 10:44 aches tramadol AdvReac Fatigued Verified 12/12/24 10:44 spironolactone AdvReac Unknown Uncoded 12/12/24 10:44 Home Meds Home Medications Medication Instructions Recorded Confirmed acetaminophen 650 mg 650 mg PO DIRECTED 10/30/23 12/12/24 tablet,extended release (Tylenol 8 Hour) diphenhydramine HCl 25 mg capsule 25 mg PO DIRECTED PRN 10/30/23 12/12/24 (Benadryl) APPOINTMENTS furosemide 40 mg tablet 40 mg PO BID 05/01/24 12/12/24 daratumumab 1,800 15 ml subcut MONTHLY 08/23/24 12/12/24 ar-[id number]-gvsr 30,000 unit/15 mL subcut soln (Darzalex Faspro) acyclovir 400 mg tablet 400 mg PO BID 11/22/24 12/12/24 dapagliflozin propanediol 10 mg 10 mg PO QAM 11/22/24 12/12/24 tablet dexamethasone 4 mg tablet 20 mg PO DIRECTED 12/12/24 12/12/24 finasteride 5 mg tablet 5 mg PO DAILY 12/12/24 12/12/24 polysaccharide iron complex 150 mg 150 mg PO [id number] 12/12/24 12/12/24 iron capsule Previous Rx's Medication Instructions Recorded dabigatran etexilate 150 mg capsule 150 mg PO BID #180 caps 01/20/24 metoprolol succinate 50 mg 50 mg PO QAM #90 tabs 08/01/24 tablet,extended release 24 hr tadalafil 20 mg tablet 20 mg PO DAILY PRN sexual activity 10/05/24 #10 tabs Results & Data (ED) Vital Signs Vital Signs - 24 hr 12/12/24 18:00 12/12/24 18:10 Pulse Rate [Apical] 91 H 85 Pulse Strength [Apical] Normal Respiratory Rate 19 19 Respiratory Effort / Characteristics Non-Labored Spontaneous Non-Labored Spontaneous Respiratory Depth Normal Normal Respiratory Pattern Regular Regular Blood Pressure [Left Arm] 114/79 114/79 Blood Pressure Mean [Left Arm] 90 90 Pulse Oximetry 93 97 Oxygen Delivery Method Room Air Nasal Cannula Oxygen Flow Rate 2 Laboratory Data 12/13/24 16:15 12/12/24 11:36 Lab Results 12/12/24 12/12/24 12/12/24 Range/Units 11:36 11:40 11:42 WBC 11.12 H (4.8-10.8) K/ul RBC 1.74 L (4.70-6.10) M/uL Hgb 5.2 L* (14.0-18.0) g/dl POC Hgb 5.4 L* (14.0-18.0) g/dl Hct 17.1 L* (42.0-52.0) % POC Hct 16 L* (42-52) % MCV 98.3 (80.0-100.0) fL MCH 29.9 (25.0-34.0) pg MCHC 30.4 L (32.0-36.0) g/dL RDW Std Deviation 62.4 H (36.4-46.3) fL RDW Coeff of Andre 19.5 H (11.5-14.5) % Plt Count 308 (130-400) K/uL MPV 10.7 (9.4-12.4) fL Immature Gran % (Auto) 1.0 % Neut % (Auto) 70.4 % Lymph % (Auto) 17.9 % Darke % (Auto) 10.4 % Eos % (Auto) 0.1 % Baso % (Auto) 0.2 % Neut # (Auto) 7.83 H (1.40-6.50) K/uL Lymph # (Auto) 1.99 (1.20-3.40) K/uL Darke # (Auto) 1.16 H (0.11-0.59) K/uL Eos # (Auto) 0.01 (0.00-0.50) K/uL Baso # (Auto) 0.02 (0.00-0.20) K/uL Immature Gran # (Auto) 0.11 (0.01-0.20) K/uL Polychromasia 2+ Anisocytosis Present Tear Drop Cells 1+ PT 18.2 H (9.0-12.0) Seconds INR 1.8 H (0.9-1.1) APTT 41 H (21-31) Seconds PTT Ratio 1.5 POC Sodium 134 L (135-144) mmol/L Sodium 135 L (136-145) mmol/L POC Potassium 3.5 (3.3-5.0) mmol/L Potassium 3.6 (3.5-5.1) mmol/L POC Chloride 96 L (101-112) mmol/L Chloride 99 (98-107) mmol/L Carbon Dioxide 24 (21-32) mmol/L POC Total CO2 22 L (24-31) mmol/L Anion Gap 12 H (3-11) POC Anion Gap 21.0 (16-25) mmol/L POC BUN 44 H (7-18) mg/dl BUN 50 H (6-23) mg/dl Creatinine 1.22 (0.6-1.4) mg/dl POC Creatinine 1.4 H (0.6-1.3) mg/dl Est Cr Clr Drug Dosing 52.6 ml/min eGFR 59.56 BUN/Creatinine Ratio 41.0 H (10-20) Glucose 155 H (70-99(Fasting)) mg/dl POC Glucose (other) 153 H (70-99) mg/dl Calcium 8.4 L (8.6-10.3) mg/dl POC Ioniz Calcium Boyd 1.07 L (1.12-1.32) mmol/l Phosphorus 3.7 (2.5-4.9) mg/dl Magnesium 2.3 (1.7-2.4) mg/dl Iron 46 (35-175) mcg/dl Total Bilirubin 1.1 H (0.2-1.0) mg/dl AST 20 (13-39) U/L ALT 16 (7-52) U/L Alkaline Phosphatase 78 (34-104) U/L Total Creatine Kinase 347 H (30-223) U/L Troponin I High Sens 68.7 H* (0-20) pg/ml Total Protein 5.3 L (6.0-8.3) gm/dl Albumin 3.5 (3.4-5.0) gm/dl Globulin 1.8 L (2.5-4.0) gm/dl Albumin/Globulin Ratio 1.9 (0.9-2) Lipase 33 (11-82) U/L TSH 2.790 (0.300-4.500) uIu/ml Blood Type A Negative Antibody Screen POSITIVE A Antibody Identification Panagglutinin due to drug Antibody ID Comment Cancelled Crossmatch See Detail 12/12/24 Range/Units 13:55 WBC (4.8-10.8) K/ul RBC (4.70-6.10) M/uL Hgb (14.0-18.0) g/dl POC Hgb (14.0-18.0) g/dl Hct (42.0-52.0) % POC Hct (42-52) % MCV (80.0-100.0) fL MCH (25.0-34.0) pg MCHC (32.0-36.0) g/dL RDW Std Deviation (36.4-46.3) fL RDW Coeff of Andre (11.5-14.5) % Plt Count (130-400) K/uL MPV (9.4-12.4) fL Immature Gran % (Auto) % Neut % (Auto) % Lymph % (Auto) % Darke % (Auto) % Eos % (Auto) % Baso % (Auto) % Neut # (Auto) (1.40-6.50) K/uL Lymph # (Auto) (1.20-3.40) K/uL Darke # (Auto) (0.11-0.59) K/uL Eos # (Auto) (0.00-0.50) K/uL Baso # (Auto) (0.00-0.20) K/uL Immature Gran # (Auto) (0.01-0.20) K/uL Polychromasia Anisocytosis Tear Drop Cells PT (9.0-12.0) Seconds INR (0.9-1.1) APTT (21-31) Seconds PTT Ratio POC Sodium (135-144) mmol/L Sodium (136-145) mmol/L POC Potassium (3.3-5.0) mmol/L Potassium (3.5-5.1) mmol/L POC Chloride (101-112) mmol/L Chloride (98-107) mmol/L Carbon Dioxide (21-32) mmol/L POC Total CO2 (24-31) mmol/L Anion Gap (3-11) POC Anion Gap (16-25) mmol/L POC BUN (7-18) mg/dl BUN (6-23) mg/dl Creatinine (0.6-1.4) mg/dl POC Creatinine (0.6-1.3) mg/dl Est Cr Clr Drug Dosing ml/min eGFR BUN/Creatinine Ratio (10-20) Glucose (70-99(Fasting)) mg/dl POC Glucose (other) (70-99) mg/dl Calcium (8.6-10.3) mg/dl POC Ioniz Calcium Boyd (1.12-1.32) mmol/l Phosphorus (2.5-4.9) mg/dl Magnesium (1.7-2.4) mg/dl Iron (35-175) mcg/dl Total Bilirubin (0.2-1.0) mg/dl AST (13-39) U/L ALT (7-52) U/L Alkaline Phosphatase (34-104) U/L Total Creatine Kinase (30-223) U/L Troponin I High Sens 69.6 H* (0-20) pg/ml Total Protein (6.0-8.3) gm/dl Albumin (3.4-5.0) gm/dl Globulin (2.5-4.0) gm/dl Albumin/Globulin Ratio (0.9-2) Lipase (11-82) U/L TSH (0.300-4.500) uIu/ml Blood Type Antibody Screen Antibody Identification Antibody ID Comment Crossmatch Administered Medications Acyclovir (Acyclovir 400 Mg Tab) 400 mg PO BID URSZULA Stop: 01/11/25 21:52 Last Admin: 12/13/24 09:10 Dose: 400 mg Documented By: Admin: 12/12/24 22:52 Dose: 400 mg Documented By: RODRIGO Finasteride (Finasteride 5 Mg Tab) 5 mg PO DAILY URSZULA Stop: 01/12/25 08:59 Last Admin: 12/13/24 09:10 Dose: 5 mg Documented By: LUL Pantoprazole Sodium (Protonix) 40 mg in 10 mls @ 5 mls/min IV BID URSZULA Stop: 01/11/25 21:52 Last Admin: 12/13/24 09:10 Dose: 5 mls/min Documented By: Admin: 12/12/24 22:52 Dose: 5 mls/min Documented By: RODRIGO Metoprolol Succinate (Metoprolol Succ 50mg Ext Rel Tab) 50 mg PO QAM URSZULA Stop: 01/12/25 08:59 Last Admin: 12/13/24 08:59 Dose: Not Given Documented By: LUL Polyethylene Glycol/Electrolytes (Lavage Solution 4000ml) 16 dose PO TODAY@1600 URSZULA Stop: 01/12/25 15:59 Last Admin: 12/13/24 17:19 Dose: 16 dose Documented By: LUL Polysaccharide Iron Complex (Iron Polysaccharide Complex 150 Mg Capsule) 150 mg PO MoWeFr@0900 URSZULA Stop: 01/12/25 08:59 Last Admin: 12/13/24 09:10 Dose: 150 mg Documented By: LUL Discontinued Medications Ioversol (Optiray 320 100ml) 94 ml IV ONCE ONE Stop: 12/12/24 12:16 Last Admin: 12/12/24 12:15 Dose: 94 ml Documented By: DOMINIC Imaging Data Radiologist's Impression: Chest X-Ray 12/12/24 11:47 XR chest 1V portable CLINICAL HISTORY: Trauma COMPARISON STUDY: 10/19/2024 FINDINGS: There is moderate cardiomegaly without pulmonary vascular congestion. No consolidation or pleural effusion seen. No pneumothorax. Stable old rib fractures. IMPRESSION: No acute findings seen. ACT 112: Negative or not required by law. Electronically signed by: Yuriy Kulkarni M.D. 12/12/2024 12:[address] 12/12/24 11:52 CT SCAN OF THE CERVICAL SPINE CLINICAL HISTORY: Trauma. COMPARISON STUDY: None TECHNIQUE: CT scan of the cervical spine is performed from the skull base to the upper thoracic spine. Images are reviewed in the axial, sagittal, and coronal planes. IV contrast was not administered for this examination. A dose lowering technique was utilized adhering to the principles of ALARA. CT DOSE: 3539.11 mGy.cm FINDINGS: Skeletal structures: There is no evidence of fracture or subluxation involving the cervical spine. Vertebral body height and alignment are maintained. The odontoid process and lateral masses are intact. The atlantoaxial articulation is preserved. The spinous processes appear intact. There is severe multilevel facet arthrosis and disc space narrowing within the cervical spine with moderate endplate osteophytosis. Soft tissues: The prevertebral and paraspinous soft tissues are within normal limits. Calvarium: The visualized calvarium at the skull base appears intact. Brain parenchyma: Partially visualized brain parenchyma at the skull base is within normal limits. Lung apices: A right pleural effusion is better depicted on the chest CT which will be reported separately. IMPRESSION: No acute cervical spine fracture or subluxation. ACT 112: Negative or not required by law. Electronically signed by: Torey Baig M.D. 12/12/2024 12:[address] 12/12/24 11:52 CT head/brain wo con CLINICAL HISTORY: 79 years-old Male with fall, n/v. Acute head trauma status post fall TECHNIQUE: Multiple axial CT images of the head were obtained without contrast. A dose lowering technique was utilized adhering to the principles of ALARA. COMPARISON: None. FINDINGS: No acute intracranial hemorrhage, midline shift, intracranial mass, hydrocephalus, territorial ischemia or abnormal extra-axial collection. Involutional changes with white matter hypodensities suggestive of chronic microvascular ischemic disease. Calcifications are seen involving the falx cerebri. The calvarium is intact. The paranasal sinuses, mastoid air cells, and middle ear cavities are clear. IMPRESSION: No acute intracranial abnormality or calvarial fracture. ACT 112: Negative or not required by law. The above report was generated using voice recognition software. It may contain grammatical, syntax or spelling errors. Electronically signed by: Wilfredo Baker M.D. 12/12/2024 12:36 PM Abdomen/Pelvis CT 12/12/24 11:55 CT SCAN OF THE ABDOMEN AND PELVIS WITH IV CONTRAST CLINICAL HISTORY: Trauma. COMPARISON STUDY: CT of the abdomen and pelvis October 20, 2024. TECHNIQUE: Following the IV administration of 94 cc of Optiray 320, CT scan of the abdomen and pelvis is performed from the lung bases to the proximal femora. Images are reviewed in the axial, sagittal, and coronal planes. IV contrast was administered without complication. A dose lowering technique was utilized adhering to the principles of ALARA. FINDINGS: Small right and trace left pleural effusions have decreased in size since CT of October 20, 2024. Interlobular septal thickening within the lower lungs is present. These are better depicted on the chest CT which will be reported separately. There are multiple old bilateral lower rib fractures. No hemoperitoneum or pneumoperitoneum is present. Nodularity of the liver surface suggests cirrhosis. There are no hepatic lesions. There is no biliary or pancreatic ductal dilatation. There is no evidence for traumatic injury to the liver, spleen, adrenal glands, kidneys or pancreas. Anasarca is noted with body wall edema. No evidence for a bowel obstruction. The appendix is normal. There is sigmoid diverticulosis without evidence for acute diverticulitis. No lymphadenopathy. No fluid collections are present. There are no acute fractures within the lumbar spine, pelvis or hips. IMPRESSION: 1. No acute traumatic findings within the abdomen or pelvis. 2. Small right and trace left pleural effusions, decreased since CT of October 20, 2024. Evidence for volume overload with interstitial pulmonary edema and anasarca. 3. Nodularity of the liver surface suggestive of cirrhosis. No hepatic lesions. ACT 112: Negative or not required by law. Electronically signed by: Torey Baig M.D. 12/12/2024 12:[address] 12/12/24 11:[address] WITH CONTRAST HISTORY: Acute chest trauma status post fall fall, anemia TECHNIQUE: Multiaxial CT images of the chest were performed following the IV administration of 94 cc of Optiray. A dose lowering technique was utilized adhering to the principles of ALARA. COMPARISON: CT abdomen and pelvis of same day, chest CT 10/20/2024 FINDINGS: Unremarkable thyroid. There are a few borderline enlarged mediastinal lymph nodes which are unchanged and nonspecific. Heart is upper limits of normal in size. Moderate coronary artery calcifications. There is atherosclerosis of the aorta without aneurysm. Patency of the imaged great vessels. Unremarkable pulmonary artery. Small right and trace left pleural effusions are similar to mildly decreased from prior. No pneumothorax. Intralobular septal thickening with mild dependent subsegmental atelectasis. Stable 4 mm solid nodule in the right upper lobe on image 51. There are no suspicious pulmonary nodules or masses identified. Central airways are patent. CT abdomen and pelvis dictated separately. Anasarca persists. Probable cirrhosis. Mild nonspecific wall thickening of the esophagus. Degenerative changes of the shoulders and spine. There are a few subacute chronic bilateral rib fractures again noted. No definite acute fracture identified. IMPRESSION: 1. No acute posttraumatic intrathoracic abnormality identified. 2. No acute fracture or pneumothorax. 3. Interstitial pulmonary edema with right greater than left pleural effusions and anasarca redemonstrated. 4. CT abdomen and pelvis dictated separately. ACT 112: Negative or not required by law. Electronically signed by: Wilfredo Baker M.D. 12/12/2024 12:48 PM Discharge Plan Visit Data Chief Complaint: Trauma Stated Complaint: DRY HEAVING, REF BY DOC ED Provider: Parveen Denton Discharge Problem: Symptomatic anemia, AL amyloidosis, Near syncope, Atrial fibrillation, Fall down stairs Patient Disposition: Admitted As Inpatient Condition: Serious Discharge Instructions Interventions: ED Discharge Assessment Last Done: 12/12/24 21:35 Discharge Problem: Atrial fibrillation Qualifiers: Atrial fibrillation type: unspecified Qualified Code(s): I48.91 - Unspecified atrial fibrillation Fall down stairs Qualifiers: Encounter type: initial encounter Qualified Code(s): W10.8XXA - Fall (on) (from) other stairs and steps, initial encounter
[2024-12-12 12:15] LABS: Hematocrit (blood only) 17.1 % (42.0-52.0); Hemoglobin 5.2 g/dl (14.0-18.0); Mean Corpuscular Hemoglobin 29.9 pg (25.0-34.0); Mean Corpuscular Volume 98.3 fL (80.0-100.0); Platelet Count 308 K/uL (130-400); RDW Standard Deviation 62.4 fL (36.4-46.3); Red Blood Count 1.74 M/uL (4.70-6.10); White Blood Count 11.12 K/ul (4.8-10.8)
[2024-12-12] MEDS: OPTIRAY 320 100ml IV ONE (12:15)
--- NOTE | 2024-12-12 12:15 | XRay Report ---
XR chest 1V portable CLINICAL HISTORY: Trauma COMPARISON STUDY: 10/19/2024 FINDINGS: There is moderate cardiomegaly without pulmonary vascular congestion. No consolidation or p leural effusion seen. No pneumothorax. Stable old rib fractures. IMPRESSION: No acute findings seen. ACT 112: Negative or not required by law. Electronically signed by: Yuriy Kulkarni M.D. 12/12/2024 12:14 PM
[2024-12-12 12:25] LABS: Alanine Aminotransferase 16.0 U/L (7-52); Albumin Globulin Ratio 1.9 (0.9-2); Albumin Level 3.5 gm/dl (3.4-5.0); Alkaline Phosphatase 78.0 U/L (34-104); Anion Gap 12.0 (3-11); Bilirubin,Total 1.1 mg/dl (0.2-1.0); Blood Urea Nitrogen 50.0 mg/dl (6-23); Calcium 8.4 mg/dl (8.6-10.3); Carbon Dioxide 24.0 mmol/L (21-32); Chloride 99.0 mmol/L (98-107); Creatine Kinase 347.0 U/L (30-223); Creatinine Clr Calc Pharmacy 52.6 ml/min; Globulin 1.8 gm/dl (2.5-4.0); Glucose 155.0 mg/dl (70-99(Fasting)); Lipase 33.0 U/L (11-82); Magnesium 2.3 mg/dl (1.7-2.4); Potassium 3.6 mmol/L (3.5-5.1); Sodium 135.0 mmol/L (136-145); Total Protein 5.3 gm/dl (6.0-8.3)
--- NOTE | 2024-12-12 12:33 | CT Scan Report ---
CT SCAN OF THE CERVICAL SPINE CLINICAL HISTORY: Trauma. COMPARISON STUDY: None TECHNIQUE: CT scan of the cervical spine is performed from the skull base to the upper thoracic spine . Images are reviewed in the axial, sagittal, and coronal planes. IV contrast was not administered fo r this examination. A dose lowering technique was utilized adhering to the principles of ALARA. CT DOSE: 3539.11 mGy.cm FINDINGS: Skeletal structures: There is no evidence of fracture or subluxation involving the cervical spine. Ve rtebral body height and alignment are maintained. The odontoid process and lateral masses are intact . The atlantoaxial articulation is preserved. The spinous processes appear intact. There is severe mu ltilevel facet arthrosis and disc space narrowing within the cervical spine with moderate endplate os teophytosis. Soft tissues: The prevertebral and paraspinous soft tissues are within normal limits. Calvarium: The visualized calvarium at the skull base appears intact. Brain parenchyma: Partially visualized brain parenchyma at the skull base is within normal limits. Lung apices: A right pleural effusion is better depicted on the chest CT which will be reported separ ately. IMPRESSION: No acute cervical spine fracture or subluxation. ACT 112: Negative or not required by law. Electronically signed by: Torey Baig M.D. 12/12/2024 12:31 PM
[2024-12-12 12:36] LABS: INR 1.8 (0.9-1.1); Partial Thromboplastin Time 41 Seconds (21-31); Prothrombin Time 18.2 Seconds (9.0-12.0)
--- NOTE | 2024-12-12 12:37 | CT Scan Report ---
CT head/brain wo con CLINICAL HISTORY: 79 years-old Male with fall, n/v. Acute head trauma status post fall TECHNIQUE: Multiple axial CT images of the head were obtained without contrast. A dose lowering tech nique was utilized adhering to the principles of ALARA. COMPARISON: None. FINDINGS: No acute intracranial hemorrhage, midline shift, intracranial mass, hydrocephalus, territorial ischem ia or abnormal extra-axial collection. Involutional changes with white matter hypodensities suggestiv e of chronic microvascular ischemic disease. Calcifications are seen involving the falx cerebri. The calvarium is intact. The paranasal sinuses, mastoid air cells, and middle ear cavities are clear . IMPRESSION: No acute intracranial abnormality or calvarial fracture. ACT 112: Negative or not required by law. The above report was generated using voice recognition software. It may contain grammatical, syntax o r spelling errors. Electronically signed by: Wilfredo Baker M.D. 12/12/2024 12:36 PM
[2024-12-12 12:40] LABS: Thyroid Stimulating Hormone 2.79 uIu/ml (0.300-4.500)
--- NOTE | 2024-12-12 12:41 | CT Scan Report ---
CT SCAN OF THE ABDOMEN AND PELVIS WITH IV CONTRAST CLINICAL HISTORY: Trauma. COMPARISON STUDY: CT of the abdomen and pelvis October 20, 2024. TECHNIQUE: Following the IV administration of 94 cc of Optiray 320, CT scan of the abdomen and pelvi s is performed from the lung bases to the proximal femora. Images are reviewed in the axial, sagittal , and coronal planes. IV contrast was administered without complication. A dose lowering technique wa s utilized adhering to the principles of ALARA. FINDINGS: Small right and trace left pleural effusions have decreased in size since CT of October 092024. Interlobular septal thickening within the lower lungs is present. These are better depicted on the chest CT which will be reported separately. There are multiple old bilateral lower rib fractur es. No hemoperitoneum or pneumoperitoneum is present. Nodularity of the liver surface suggests cirrho sis. There are no hepatic lesions. There is no biliary or pancreatic ductal dilatation. There is no e vidence for traumatic injury to the liver, spleen, adrenal glands, kidneys or pancreas. Anasarca is n oted with body wall edema. No evidence for a bowel obstruction. The appendix is normal. There is sigm oid diverticulosis without evidence for acute diverticulitis. No lymphadenopathy. No fluid collection s are present. There are no acute fractures within the lumbar spine, pelvis or hips. IMPRESSION: 1. No acute traumatic findings within the abdomen or pelvis. 2. Small right and trace left pleural effusions, decreased since CT of October 20, 2024. Evidence f or volume overload with interstitial pulmonary edema and anasarca. 3. Nodularity of the liver surface suggestive of cirrhosis. No hepatic lesions. ACT 112: Negative or not required by law. Electronically signed by: Torey Baig M.D. 12/12/2024 12:39 PM
--- NOTE | 2024-12-12 12:50 | CT Scan Report ---
CHEST CT WITH CONTRAST HISTORY: Acute chest trauma status post fall fall, anemia TECHNIQUE: Multiaxial CT images of the chest were performed following the IV administration of 94 cc of Optiray. A dose lowering technique was utilized adhering to the principles of ALARA. COMPARISON: CT abdomen and pelvis of same day, chest CT 10/20/2024 FINDINGS: Unremarkable thyroid. There are a few borderline enlarged mediastinal lymph nodes which are unchanged and nonspecific. Heart is upper limits of normal in size. Moderate coronary artery calcifi cations. There is atherosclerosis of the aorta without aneurysm. Patency of the imaged great vessels. Unremarkable pulmonary artery. Small right and trace left pleural effusions are similar to mildly decreased from prior. No pneumotho rax. Intralobular septal thickening with mild dependent subsegmental atelectasis. Stable 4 mm solid n odule in the right upper lobe on image 51. There are no suspicious pulmonary nodules or masses identi fied. Central airways are patent. CT abdomen and pelvis dictated separately. Anasarca persists. Proba ble cirrhosis. Mild nonspecific wall thickening of the esophagus. Degenerative changes of the shoulde rs and spine. There are a few subacute chronic bilateral rib fractures again noted. No definite acute fracture identified. IMPRESSION: 1. No acute posttraumatic intrathoracic abnormality identified. 2. No acute fracture or pneumothorax. 3. Interstitial pulmonary edema with right greater than left pleural effusions and anasarca redemonst rated. 4. CT abdomen and pelvis dictated separately. ACT 112: Negative or not required by law. Electronically signed by: Wilfredo Baker M.D. 12/12/2024 12:48 PM
[2024-12-12 12:53] LABS: Anisocytosis Present; Immature Granulocytes # (auto) 0.11 K/uL (0.01-0.20); Immature Granulocytes % (auto) 1.0 %; Polychromasia 2+; Tear Drop Cells 1+
[2024-12-12 13:17] LABS: Iron 46.0 mcg/dl (35-175)
--- NOTE | 2024-12-12 13:28 | Electrocardiogram Report ---
Test Reason : Blood Pressure : */* mmHG Vent. Rate : 96 BPM Atrial Rate : * BPM P-R Int : * ms QRS Dur : 134 ms QT Int : 416 ms P-R-T Axes : * 62 262 degrees QTcB Int : 525 ms Atrial fibrillation Right bundle branch block T wave abnormality, consider inferolateral ischemia Abnormal ECG When compared with ECG of 01-Dec-2024 05:33, T wave inversion now evident in Lateral leads Confirmed by Nathanael Burnett ([id number]) on 12/12/2024 1:27:54 PM Referred By: Confirmed By: Nathanael Burnett
[2024-12-12 17:58] LABS: Appearance Urine Clear (Clear); Glucose Urine UA 2+ (Negative)
--- NOTE | 2024-12-12 20:05 | History & Physical Report ---
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, cardiac amyloidosis, CKD stage III, HFpEF, atrial fibrillation on Pradaxa, CAD, HLD - coming in with multiple episodes of syncope and dyspnea Symptomatic Anemia - Hgb down to 5.2; acute on chronic anemia - transfusion ordered, blood coming from outside facility - hold Pradaxa - IV PPI BID - GI consulted AL Amyloidosis - on oral chemotherapy Cardiac Amyloidosis HFpEF - hold diuretics due to the significant anemia to prevent dehydration CKD stage 3 - noted - avoid nephrotoxic agents if able History of Present Illness Chief Complaint: Syncope, shortness of breath Primary Care Provider: Rodriguez Presley MD This is an 79 year old male with a PMH 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 He was seen by his primary marine technician in the office and did not appear to be well, so was told to come in the ER for further eval. in the ER, Hgb noted to be 5.2; patient states that he's been having a work-up for the anemia as an outpatient; he was told by his hem/onc doctor that he needed an EGD/colonoscopy for further eval. He has not gotten this done recently. Allergies Allergy/AdvReac Type Severity Reaction Status Date / Time montelukast AdvReac Severe Brain fog Verified 12/12/24 10:44 atorvastatin AdvReac Intermediate Muscle Verified 12/12/24 10:44 aches rosuvastatin AdvReac Intermediate Muscle Verified 12/12/24 10:44 aches tramadol AdvReac Fatigued Verified 12/12/24 10:44 spironolactone AdvReac Unknown Uncoded 12/12/24 10:44 Home Medications Medication Instructions Recorded Confirmed Type acetaminophen 650 mg 650 mg PO DIRECTED 10/30/23 12/12/24 History tablet,extended release (Tylenol 8 Hour) diphenhydramine HCl 25 mg capsule 25 mg PO DIRECTED PRN 10/30/23 12/12/24 History (Benadryl) APPOINTMENTS dabigatran etexilate 150 mg capsule 150 mg PO BID #180 caps 01/20/24 12/12/24 Rx furosemide 40 mg tablet 40 mg PO BID 05/01/24 12/12/24 History metoprolol succinate 50 mg 50 mg PO QAM #90 tabs 08/01/24 12/12/24 Rx tablet,extended release 24 hr daratumumab 1,800 15 ml subcut MONTHLY 08/23/24 12/12/24 History wk-zrwgcgiryrnhy-yiiz 30,000 unit/15 mL subcut soln (Darzalex Faspro) tadalafil 20 mg tablet 20 mg PO DAILY PRN sexual activity 10/05/24 12/12/24 Rx #10 tabs acyclovir 400 mg tablet 400 mg PO BID 11/22/24 12/12/24 History dapagliflozin propanediol 10 mg 10 mg PO QAM 11/22/24 12/12/24 History tablet dexamethasone 4 mg tablet 20 mg PO DIRECTED 12/12/24 12/12/24 History finasteride 5 mg tablet 5 mg PO DAILY 12/12/24 12/12/24 History polysaccharide iron complex 150 mg 150 mg PO 3XWK 12/12/24 12/12/24 History iron capsule Past Med/Surg History Problem List (Updated 12/12/24 @ 16:34 by Parveen Denton MD) Symptomatic anemia (Acute) Injury of left rotator cuff (Acute) Left shoulder pain (Acute) Left rotator cuff tear (Acute) Partial tear of left rotator cuff Traumatic partial tear of left biceps tendon Edema Anemia AL amyloidosis BPH (benign prostatic hyperplasia) Degenerative arthritis of left knee Prediabetes Hyperlipidemia Hypertension Impaired fasting glucose Medical History 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 Smalls Prediabetes Anemia Cardiac amyloidosis Degenerative arthritis BPH (benign prostatic hyperplasia) Maintenance chemotherapy First of every month CAD (coronary artery disease) CKD (chronic kidney disease) stage 3, GFR 30-59 ml/min Atrial fibrillation, permanent Follows with [facility] cardio Male erectile disorder of organic origin Traumatic wound Hx Right leg traumatic wound secondary to shrapnel in [place] Surgical History History of total knee replacement R/L Hx of cardiac catheterization (11/04/22) Prior to amloidosis dx- no stents History of bone marrow biopsy History of biopsy of kidney History of tooth extraction S/P cataract extraction R/L Family History Brother Hodgkin disease Diabetes Mother Ovarian cancer Father Heart disease Myocardial infarction Sister Breast cancer Grandfather Myocardial infarction Other No family history of adverse response to anesthesia Denies family history of Prostate cancer Colorectal cancer Pulmonary embolism Social History Smoking Status: Never smoker Tobacco Type: Cigarettes Age Started Using Tobacco: 16; Age Quit Using Tobacco: 33; packs per day: 1.5; Second Hand Exposure: Yes (as a child); Do You Dip or Chew Tobacco: No; Hx Alcohol Use: Yes Alcohol type: wine Alcohol Intake Frequency: Monthly or Less Preferred Language: Uzbek Communication Ability: Effective Visual Impairment: No Limitations Hearing Ability: Use of Hearing Aid Swiss Machinist Required: No Beliefs That Will Affect Care: None marital status: Current Living Situation: Spouse current occupational status: 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 How many Children do You have: 0 Feels Safe at Home: Yes Childhood Exposure to Second-Hand Smoke: Yes Diet: gluten free and other Diet Comment: dairy free & gluten free only due to how spouse eats during the past year weight has: remained stable Dental Care, Regularly: No Physical Activity Frequency: Daily Physical Activity Frequency Comment: muscle strengthening, 20 minutes Seatbelt Use: always Sunscreen Use: Yes Do you think of yourself as: straight/heterosexual Gender Identity: Male Assistive Devices: Denture - Upper, Denture - Lower, Glasses and Hearing Aid - Bilateral Review of Systems Review of Systems: Constitutional: No Weight Change, No Fever, No Chills, No Night Sweats, No Fatigue, No Malaise ENT/Mouth: No Hearing Changes, No Ear Pain, No Nasal Congestion, No Sinus Pain, No Hoarseness, No sore throat, No Rhinorrhea, No Swallowing Difficulty Eyes: No Eye Pain, No Swelling, No Redness, No Foreign Body, No Discharge, No Vision Changes Cardiovascular: No Chest Pain, No SOB, No PND, No Dyspnea on Exertion, No Orthopnea, No Claudication, No Edema, No Palpitations Respiratory: No Cough, No Sputum, No Wheezing, No Smoke Exposure, No Dyspnea Gastrointestinal: No Nausea, No Vomiting, No Diarrhea, No Constipation, No Pain, No Heartburn, No Anorexia, No Dysphagia, No Hematochezia, No Melena, No Flatulence, No Jaundice Genitourinary: No Dysmenorrhea, No DUB, No Dyspareunia, No Dysuria, No Urinary Frequency, No Hematuria, No Urinary Incontinence, No Urgency, No Flank Pain, No Urinary Flow Changes, No Hesitancy Musculoskeletal: No Arthralgias, No Myalgias, No Joint Swelling, No Joint Stiffness, No Back Pain, No Neck Pain, No Injury History Skin: No Skin Lesions, No Pruritis, No Hair Changes, No Breast/Skin Changes, No Nipple Discharge Neuro: No Weakness, No Numbness, No Paresthesias, No Loss of Consciousness, No Syncope, No Dizziness, No Headache, No Coordination Changes, No Recent Falls Psych: No Anxiety/Panic, No Depression, No Insomnia, No Personality Changes, No Delusions, No Rumination, No SI/HI/AH/VH, No Social Issues, No Memory Changes, No Violence/Abuse Hx., No Eating Concerns Heme/Lymph: No Bruising, No Bleeding, No Transfusions History, No Lympha denopathy Endocrine: No Polyuria, No Polydipsia, No Temperature Intolerance Physical Exam Physical Exam: VITALS: Reviewed. WEIGHT/BMI reviewed. GEN: Healthy appearing, well-developed, NAD. PSYCH: Good Judgment. AOx3. Normal memory, mood, and affect. HEENT -Head: NC/AT; -Eyes: PERRL, EOMI. No discharge or redn ess; -Ears: External ears are normal. Normal TMs. -Nose: Normal nares. -Mouth and throat: MMM. Normal gums, muc khadar, palate,. Good dentition. NECK: Supple, with no masses. CV: RRR, no m/r/g. LUNGS: CTAB, no w/r/c. ABD: Soft, NT/ND, NBS, no masses or organomegaly. : N/A SKIN: Warm, well perfused. No skin rashes or abnormal lesions. MSK: No deformities, Normal gait. EXT: No clubbing, cyanosis, or edema. NEURO: Ambulating with no limitations. Normal muscle strength and tone. No focal deficits. Results & Data Results & Data Vital Signs (Past 12 Hours) Vital Signs Temp Pulse Pulse Resp BP BP Pulse Ox 12/12/24 19:19 110 H 12/12/24 19:00 93 H 114/75 100 12/12/24 18:10 85 19 114/79 97 12/12/24 18:00 91 H 19 114/79 93 12/12/24 17:02 85 19 93/55 L 96 12/12/24 16:00 88 18 96/59 L 99 12/12/24 15:02 86 18 103/66 99 12/12/24 14:00 92 H 18 117/82 100 12/12/24 13:32 98 H 14 106/68 100 12/12/24 13:00 95 H 16 119/87 100 12/12/24 12:39 36.4 C L 92 H 17 111/69 100 12/12/24 11:49 102 H 12/12/24 11:48 102 H 12/12/24 11:47 13 100 12/12/24 11:30 12/12/24 11:30 36.4 C L 104 H 13 109/70 100 12/12/24 11:30 36.4 C L 106 H 18 109/70 100 12/12/24 11:24 36.3 C L 108 H 19 113/67 97 O2 Del Method O2 Flow Rate 12/12/24 19:19 12/12/24 19:00 Room Air 12/12/24 18:10 Nasal Cannula 2 12/12/24 18:00 Room Air 12/12/24 17:02 Nasal Cannula 2 12/12/24 16:00 Room Air 12/12/24 15:02 Room Air 12/12/24 14:00 Room Air 12/12/24 13:32 Room Air 12/12/24 13:00 Room Air 12/12/24 12:39 Room Air 12/12/24 11:49 12/12/24 11:48 12/12/24 11:47 Room Air 12/12/24 11:30 Room Air 12/12/24 11:30 Room Air 12/12/24 11:30 Room Air 100 12/12/24 11:24 Room Air Laboratory Results Laboratory Results WBC 11.12 K/ul (4.8-10.8) H 12/12/24 11:36 RBC 1.74 M/uL (4.70-6.10) L 12/12/24 11:36 Hgb 5.2 g/dl (14.0-18.0) L* 12/12/24 11:36 POC Hgb 5.4 g/dl (14.0-18.0) L* 12/12/24 11:42 Hct 17.1 % (42.0-52.0) L* 12/12/24 11:36 POC Hct 16 % (42-52) L* 12/12/24 11:42 MCV 98.3 fL (80.0-100.0) 12/12/24 11:36 MCH 29.9 pg (25.0-34.0) 12/12/24 11:36 MCHC 30.4 g/dL (32.0-36.0) L 12/12/24 11:36 RDW Std Deviation 62.4 fL (36.4-46.3) H 12/12/24 11:36 RDW Coeff of Andre 19.5 % (11.5-14.5) H 12/12/24 11:36 Plt Count 308 K/uL (130-400) 12/12/24 11:36 MPV 10.7 fL (9.4-12.4) 12/12/24 11:36 Immature Gran % (Auto) 1.0 % 12/12/24 11:36 Neut % (Auto) 70.4 % 12/12/24 11:36 Lymph % (Auto) 17.9 % 12/12/24 11:36 Prentiss % (Auto) 10.4 % 12/12/24 11:36 Eos % (Auto) 0.1 % 12/12/24 11:36 Baso % (Auto) 0.2 % 12/12/24 11:36 Neut # (Auto) 7.83 K/uL (1.40-6.50) H 12/12/24 11:36 Lymph # (Auto) 1.99 K/uL (1.20-3.40) 12/12/24 11:36 Prentiss # (Auto) 1.16 K/uL (0.11-0.59) H 12/12/24 11:36 Eos # (Auto) 0.01 K/uL (0.00-0.50) 12/12/24 11:36 Baso # (Auto) 0.02 K/uL (0.00-0.20) 12/12/24 11:36 Immature Gran # (Auto) 0.11 K/uL (0.01-0.20) 12/12/24 11:36 Polychromasia 2+ 12/12/24 11:36 Anisocytosis Present 12/12/24 11:36 Tear Drop Cells 1+ 12/12/24 11:36 PT 18.2 Seconds (9.0-12.0) H 12/12/24 11:36 INR 1.8 (0.9-1.1) H 12/12/24 11:36 APTT 41 Seconds (21-31) H 12/12/24 11:36 PTT Ratio 1.5 12/12/24 11:36 POC Sodium 134 mmol/L (135-144) L 12/12/24 11:42 Sodium 135 mmol/L (136-145) L 12/12/24 11:36 POC Potassium 3.5 mmol/L (3.3-5.0) 12/12/24 11:42 Potassium 3.6 mmol/L (3.5-5.1) 12/12/24 11:36 POC Chloride 96 mmol/L (101-112) L 12/12/24 11:42 Chloride 99 mmol/L (98-107) 12/12/24 11:36 Carbon Dioxide 24 mmol/L (21-32) 12/12/24 11:36 POC Total CO2 22 mmol/L (24-31) L 12/12/24 11:42 Anion Gap 12 (3-11) H 12/12/24 11:36 POC Anion Gap 21.0 mmol/L (16-25) 12/12/24 11:42 POC BUN 44 mg/dl (7-18) H 12/12/24 11:42 BUN 50 mg/dl (6-23) H 12/12/24 11:36 Creatinine 1.22 mg/dl (0.6-1.4) 12/12/24 11:36 POC Creatinine 1.4 mg/dl (0.6-1.3) H 12/12/24 11:42 Est Cr Clr Drug Dosing 52.6 ml/min 12/12/24 11:36 eGFR 59.56 12/12/24 11:36 BUN/Creatinine Ratio 41.0 (10-20) H 12/12/24 11:36 Glucose 155 mg/dl (70-99(Fasting)) H 12/12/24 11:36 POC Glucose (other) 153 mg/dl (70-99) H 12/12/24 11:42 Calcium 8.4 mg/dl (8.6-10.3) L 12/12/24 11:36 POC Ioniz Calcium Boyd 1.07 mmol/l (1.12-1.32) L 12/12/24 11:42 Phosphorus 3.7 mg/dl (2.5-4.9) 12/12/24 11:36 Magnesium 2.3 mg/dl (1.7-2.4) 12/12/24 11:36 Iron 46 mcg/dl (35-175) 12/12/24 11:36 Total Bilirubin 1.1 mg/dl (0.2-1.0) H 12/12/24 11:36 AST 20 U/L (13-39) 12/12/24 11:36 ALT 16 U/L (7-52) 12/12/24 11:36 Alkaline Phosphatase 78 U/L (34-104) 12/12/24 11:36 Total Creatine Kinase 347 U/L (30-223) H 12/12/24 11:36 Troponin I High Sens 69.6 pg/ml (0-20) H* 12/12/24 13:55 Total Protein 5.3 gm/dl (6.0-8.3) L 12/12/24 11:36 Albumin 3.5 gm/dl (3.4-5.0) 12/12/24 11:36 Globulin 1.8 gm/dl (2.5-4.0) L 12/12/24 11:36 Albumin/Globulin Ratio 1.9 (0.9-2) 12/12/24 11:36 Lipase 33 U/L (11-82) 12/12/24 11:36 TSH 2.790 uIu/ml (0.300-4.500) 12/12/24 11:36 Urine Color Yellow 12/12/24 Unknown Urine Appearance Clear (Clear) 12/12/24 Unknown Urine pH 6.5 (4.5-7.5) 12/12/24 Unknown Ur Specific [place] 1.029 (1.000-1.030) 12/12/24 Unknown Urine Protein Negative (Negative) 12/12/24 Unknown Urine Glucose (UA) 2+ (Negative) H 12/12/24 Unknown Urine Ketones Negative (Negative) 12/12/24 Unknown Urine Blood Negative (Negative) 12/12/24 Unknown Urine Nitrite Negative (Negative) 12/12/24 Unknown Urine Bilirubin Negative (Negative) 12/12/24 Unknown Urine Urobilinogen Negative (Negative) 12/12/24 Unknown Ur Leukocyte Esterase Negative (Negative) 12/12/24 Unknown Urine Comment 12/12/24 Unknown Blood Type A Negative 12/12/24 11:40 Antibody Screen POSITIVE A 12/12/24 11:40 Crossmatch See Detail 12/12/24 11:40 Impressions Chest X-Ray 12/12/24 11:47 XR chest 1V portable CLINICAL HISTORY: Trauma COMPARISON STUDY: 10/19/2024 FINDINGS: There is moderate cardiomegaly without pulmonary vascular congestion. No consolidation or pleural effusion seen. No pneumothorax. Stable old rib fractures. IMPRESSION: No acute findings seen. ACT 112: Negative or not required by law. Electronically signed by: Yuriy Kulkarni M.D. 12/12/2024 12:[address] 12/12/24 11:52 CT SCAN OF THE CERVICAL SPINE CLINICAL HISTORY: Trauma. COMPARISON STUDY: None TECHNIQUE: CT scan of the cervical spine is performed from the skull base to the upper thoracic spine. Images are reviewed in the axial, sagittal, and coronal planes. IV contrast was not administered for this examination. A dose lowering technique was utilized adhering to the principles of ALARA. CT DOSE: 3539.11 mGy.cm FINDINGS: Skeletal structures: There is no evidence of fracture or subluxation involving the cervical spine. Vertebral body height and alignment are maintained. The odontoid process and lateral masses are intact. The atlantoaxial articulation is preserved. The spinous processes appear intact. There is severe multilevel facet arthrosis and disc space narrowing within the cervical spine with moderate endplate osteophytosis. Soft tissues: The prevertebral and paraspinous soft tissues are within normal limits. Calvarium: The visualized calvarium at the skull base appears intact. Brain parenchyma: Partially visualized brain parenchyma at the skull base is within normal limits. Lung apices: A right pleural effusion is better depicted on the chest CT which will be reported separately. IMPRESSION: No acute cervical spine fracture or subluxation. ACT 112: Negative or not required by law. Electronically signed by: Torey Baig M.D. 12/12/2024 12:[address] 12/12/24 11:52 CT head/brain wo con CLINICAL HISTORY: 79 years-old Male with fall, n/v. Acute head trauma status post fall TECHNIQUE: Multiple axial CT images of the head were obtained without contrast. A dose lowering technique was utilized adhering to the principles of ALARA. COMPARISON: None. FINDINGS: No acute intracranial hemorrhage, midline shift, intracranial mass, hydrocephalus, territorial ischemia or abnormal extra-axial collection. Involutional changes with white matter hypodensities suggestive of chronic microvascular ischemic disease. Calcifications are seen involving the falx cerebri. The calvarium is intact. The paranasal sinuses, mastoid air cells, and middle ear cavities are clear. IMPRESSION: No acute intracranial abnormality or calvarial fracture. ACT 112: Negative or not required by law. The above report was generated using voice recognition software. It may contain grammatical, syntax or spelling errors. Electronically signed by: Wilfredo Baker M.D. 12/12/2024 12:36 PM Abdomen/Pelvis CT 12/12/24 11:55 CT SCAN OF THE ABDOMEN AND PELVIS WITH IV CONTRAST CLINICAL HISTORY: Trauma. COMPARISON STUDY: CT of the abdomen and pelvis October 20, 2024. TECHNIQUE: Following the IV administration of 94 cc of Optiray 320, CT scan of the abdomen and pelvis is performed from the lung bases to the proximal femora. Images are reviewed in the axial, sagittal, and coronal planes. IV contrast was administered without complication. A dose lowering technique was utilized adhering to the principles of ALARA. FINDINGS: Small right and trace left pleural effusions have decreased in size since CT of October 20, 2024. Interlobular septal thickening within the lower lungs is present. These are better depicted on the chest CT which will be reported separately. There are multiple old bilateral lower rib fractures. No hemoperitoneum or pneumoperitoneum is present. Nodularity of the liver surface suggests cirrhosis. There are no hepatic lesions. There is no biliary or pancreatic ductal dilatation. There is no evidence for traumatic injury to the liver, spleen, adrenal glands, kidneys or pancreas. Anasarca is noted with body wall edema. No evidence for a bowel obstruction. The appendix is normal. There is sigmoid diverticulosis without evidence for acute diverticulitis. No lymphadenopathy. No fluid collections are present. There are no acute fractures within the lumbar spine, pelvis or hips. IMPRESSION: 1. No acute traumatic findings within the abdomen or pelvis. 2. Small right and trace left pleural effusions, decreased since CT of October 20, 2024. Evidence for volume overload with interstitial pulmonary edema and anasarca. 3. Nodularity of the liver surface suggestive of cirrhosis. No hepatic lesions. ACT 112: Negative or not required by law. Electronically signed by: Torey Baig M.D. 12/12/2024 12:[address] 12/12/24 11:[address] WITH CONTRAST HISTORY: Acute chest trauma status post fall fall, anemia TECHNIQUE: Multiaxial CT images of the chest were performed following the IV administration of 94 cc of Optiray. A dose lowering technique was utilized adhering to the principles of ALARA. COMPARISON: CT abdomen and pelvis of same day, chest CT 10/20/2024 FINDINGS: Unremarkable thyroid. There are a few borderline enlarged mediastinal lymph nodes which are unchanged and nonspecific. Heart is upper limits of normal in size. Moderate coronary artery calcifications. There is atherosclerosis of the aorta without aneurysm. Patency of the imaged great vessels. Unremarkable pulmonary artery. Small right and trace left pleural effusions are similar to mildly decreased from prior. No pneumothorax. Intralobular septal thickening with mild dependent subsegmental atelectasis. Stable 4 mm solid nodule in the right upper lobe on image 51. There are no suspicious pulmonary nodules or masses identified. Central airways are patent. CT abdomen and pelvis dictated separately. Anasarca persists. Probable cirrhosis. Mild nonspecific wall thickening of the esophagus. Degenerative changes of the shoulders and spine. There are a few subacute chronic bilateral rib fractures again noted. No definite acute fracture identified. IMPRESSION: 1. No acute posttraumatic intrathoracic abnormality identified. 2. No acute fracture or pneumothorax. 3. Interstitial pulmonary edema with right greater than left pleural effusions and anasarca redemonstrated. 4. CT abdomen and pelvis dictated separately. ACT 112: Negative or not required by law. Electronically signed by: Wilfredo Baker M.D. 12/12/2024 12:48 PM Code Status & VTE Plan VTE Prophylaxis Plan VTE Prophylaxis will be ordered: Yes PG Care Time/CCT Total # of Minutes Spent Total Time Spent with Patient: Total time spent is greater than 50% in coordination of care (as documented) at patient's floor/unit and/or counseling patient: Coding Level of Care Code 04152 INT INP/OBS CARE /75MIN Diagnoses Symptomatic anemia D64.9 AL amyloidosis E85.81 Primary hypertension I10 Hypertension type: primary hypertension Pure hypercholesterolemia E78.00 Hyperlipidemia type: pure hypercholesterolemia Benign prostatic hyperplasia with urinary hesitancy N40.1; R39.11 Lower urinary tract symptom presence: symptoms present Lower urinary tract symptom detail: urinary hesitancy (3) Hypertension Hypertension type: primary hypertension Qualified Code(s): I10 - Essential (primary) hypertension (4) Hyperlipidemia Hyperlipidemia type: pure hypercholesterolemia Qualified Code(s): E78.00 - Pure hypercholesterolemia, unspecified (5) BPH (benign prostatic hyperplasia) Lower urinary tract symptom presence: symptoms present Lower urinary tract symptom detail: urinary hesitancy Qualified Code(s): N40.1 - Benign prostatic hyperplasia with lower urinary tract symptoms; R39.11 - Hesitancy of micturition
[2024-12-12] MEDS ORDERED: ACETAMINOPHEN 325 MG TAB PO PRN (21:53)
[2024-12-12] MEDS: ACYCLOVIR 400 MG TAB PO SCH (22:52)
[2024-12-12] MEDS: PANTOprazole 40 MG/10 ML SYR IV SCH (22:52)
[2024-12-13 08:27] LABS: Hematocrit (blood only) 18.4 % (42.0-52.0); Hemoglobin 5.8 g/dl (14.0-18.0); Mean Corpuscular Hemoglobin 29.7 pg (25.0-34.0); Mean Corpuscular Volume 94.4 fL (80.0-100.0); Platelet Count 230 K/uL (130-400); RDW Standard Deviation 56.2 fL (36.4-46.3); Red Blood Count 1.95 M/uL (4.70-6.10); White Blood Count 8.03 K/ul (4.8-10.8)
[2024-12-13] MEDS ORDERED: SODIUM CHLORIDE 0.9% 100 ML IV PRN (08:31)
[2024-12-13 08:52] LABS: Immature Granulocytes # (auto) 0.06 K/uL (0.01-0.20); Immature Granulocytes % (auto) 0.7 %; Microcytosis Present; Polychromasia 3+
[2024-12-13] MEDS: METOPROLOL SUCC 50MG EXT REL TAB PO SCH (08:59)
[2024-12-13] MEDS: IRON POLYSACCHARIDE COMPLEX 150 MG CAPSULE PO SCH (09:10)
[2024-12-13] MEDS: FINASTERIDE 5 MG TAB PO SCH (09:10)
--- NOTE | 2024-12-13 09:45 | Progress Note ---
Date of Service December 13, 2024 Assessment & Plan (1) Symptomatic anemia: (2) AL amyloidosis: (3) Hypertension: Hypertension type: primary hypertension Qualified Code(s): I10 - Essential (primary) hypertension (4) Hyperlipidemia: Hyperlipidemia type: pure hypercholesterolemia Qualified Code(s): E78.00 - Pure hypercholesterolemia, unspecified (5) BPH (benign prostatic hyperplasia): Lower urinary tract symptom detail: urinary hesitancy Lower urinary tract symptom presence: symptoms present Qualified Code(s): N40.1 - Benign prostatic hyperplasia with lower urinary tract symptoms; R39.11 - Hesitancy of micturition Plan This is an 79 year old male with a PMH 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, cardiac amyloidosis, CKD stage III, HFpEF, atrial fibrillation on Pradaxa, CAD, HLD - coming in with multiple episodes of syncope and dyspnea Symptomatic Anemia - Hgb down to 5.2 on admission; acute on chronic anemia - s/p 2 units pRBCs overnight/this morning - hgb still <6 - two more units ordered - hold Pradaxa - IV PPI BID - GI consulted - hem/onc consulted AL Amyloidosis - on oral chemotherapy at home Cardiac Amyloidosis HFpEF - hold diuretics due to the significant anemia to prevent dehydration CKD stage 3 - noted - avoid nephrotoxic agents if able Admission and Anticipated Discharge Date Admission Date: December 12, 2024 Subjective Patient states he feels better today. Hgb this morning still <6. no chest pain, patien'ts breathing improving. denies dizziness, no lightheadedness. Review of Systems Review of Systems: Constitutional: No Weight Change, No Fever, No Chills, No Night Sweats, No Fatigue, No Malaise ENT/Mouth: No Hearing Changes, No Ear Pain, No Nasal Congestion, No Sinus Pain, No Hoarseness, No sore throat, No Rhinorrhea, No Swallowing Difficulty Eyes: No Eye Pain, No Swelling, No Redness, No Foreign Body, No Discharge, No Vision Changes Cardiovascular: No Chest Pain, No SOB, No PND, No Dyspnea on Exertion, No Orthopnea, No Claudication, No Edema, No Palpitations Respiratory: No Cough, No Sputum, No Wheezing, No Smoke Exposure, No Dyspnea Gastrointestinal: No Nausea, No Vomiting, No Diarrhea, No Constipation, No Pa in, No Heartburn, No Anorexia, No Dysphagia, No Hematochezia, No Melena, No Flatulence, No Jaundice Genitourinary: No Dysmenorrhea, No DUB, No Dyspareunia, No Dysuria, No Urinary Frequency, No Hematuria, No Urinary Incontinence, No Urgency, No Flank Pain, No Urinary Flow Changes, No Hesitancy Musculoskeletal: No Arthralgias, No Myalgias, No Joint Swelling, No Joint Stiffness, No Back Pain, No Neck Pain, No Injury History Skin: No Skin Lesions, No Pruritis, No Hair Changes, No Breast/Skin Changes, No Nipple Discharge Neuro: No Weakness, No Numbness, No Paresthesias, No Loss of Consciousness, No Syncope, No Dizziness, No Headache, No Coordination Changes, No Recent Falls Psych: No Anxiety/Panic, No Depression, No Insomnia, No Personality Changes, No Delusions, No Rumination, No SI/HI/AH/VH, No Social Issues, No Memory Changes, No Violence/Abuse Hx., No Eating Concerns Heme/Lymph: No Bruising, No Bleeding, No Transfusions History, No Lymphadenopathy Endocrine: No Polyuria, No Polydipsia, No Temperature Intolerance Physical Exam Physical Exam: VITALS: Reviewed. WEIGHT/BMI reviewed. GEN: Healthy appearing, well-developed, NAD. PSYCH: Good Judgment. AOx3. Normal memory, mood, and affect. HEENT -Head: NC/AT; -Eyes: PERRL, EOMI. No discharge or redn ess; -Ears: External ears are normal. Normal TMs. -Nose: Normal nares. -Mouth and throat: MMM. Normal gums, muc khadar, palate,. Good dentition. NECK: Supple, with no masses. CV: RRR, no m/r/g. LUNGS: CTAB, no w/r/c. ABD: Soft, NT/ND, NBS, no masses or organomegaly. : N/A SKIN: Warm, well perfused. No skin rashes or abnormal lesions. MSK: No deformities, Normal gait. EXT: No clubbing, cyanosis, or edema. NEURO: Ambulating with no limitations. Normal muscle strength and tone. No focal deficits. Results & Data Vital Signs (Past 12 Hours) Vital Signs Temp Pulse Pulse Resp BP BP Pulse Ox 12/13/24 09:37 36.8 C 100 H 18 105/69 98 12/13/24 09:22 36.5 C 93 H 18 114/78 98 12/13/24 09:01 36.9 C 93 H 17 110/72 99 12/13/24 08:22 36.6 C 99 H 16 123/81 99 12/13/24 06:13 36.8 C 92 H 16 106/71 98 12/13/24 05:55 36.7 C 94 H 16 104/68 98 12/13/24 04:55 36.7 C 99 H 18 102/62 98 12/13/24 04:55 36.6 C 95 H 16 103/58 L 100 12/13/24 04:54 36.7 C 99 H 18 102/62 98 12/13/24 04:25 36.8 C 96 H 16 99/64 L 100 12/13/24 04:24 36.8 C 96 H 16 99/64 L 12/13/24 04:10 36.8 C 95 H 16 107/71 12/13/24 04:09 36.8 C 98 H 16 107/71 12/13/24 03:53 36.6 C 100 H 16 105/68 100 12/13/24 03:40 36.8 C 96 H 18 96/59 L 100 12/13/24 02:35 36.7 C 102 H 18 89/62 L 95 12/13/24 02:05 36.5 C 112 H 16 89/63 L 100 12/13/24 01:35 36.7 C 94 H 16 100/55 L 97 12/13/24 01:05 36.6 C 102 H 16 102/54 L 100 12/13/24 00:50 36.6 C 103 H 16 101/57 L 95 12/13/24 00:24 36.8 C 97 H 14 110/71 98 12/12/24 21:53 12/12/24 21:53 36.5 C 76 16 96/65 L 94 12/12/24 21:53 12/12/24 21:53 12/12/24 21:53 36.5 C 76 16 96/65 L 94 Pulse Ox O2 Del Method O2 Del Method O2 Flow Rate O2 Flow Rate 12/13/24 09:37 2 12/13/24 09:22 2 12/13/24 09:01 12/13/24 08:22 Nasal Cannula 2 12/13/24 06:13 2 12/13/24 05:55 2 12/13/24 04:55 2 12/13/24 04:55 2 12/13/24 04:54 12/13/24 04:25 12/13/24 04:24 12/13/24 04:10 12/13/24 04:09 12/13/24 03:53 2 12/13/24 03:40 2 12/13/24 02:35 12/13/24 02:05 12/13/24 01:35 12/13/24 01:05 2 12/13/24 00:50 2 12/13/24 00:24 2 12/12/24 21:53 Nasal Cannula 2 12/12/24 21:53 Nasal Cannula 2 12/12/24 21:53 Nasal Cannula 2 12/12/24 21:53 94 Nasal Cannula 2 12/12/24 21:53 Nasal Cannula 2 PG Care Time/CCT Total # of Minutes Spent Total Time Spent with Patient: Total time spent is greater than 50% in coordination of care (as documented) at patient's floor/unit and/or counseling patient: Coding Level of Care Code 68512 SUB INP/OBS CARE 3/50MIN Diagnoses Symptomatic anemia D64.9 AL amyloidosis E85.81 Primary hypertension I10 Hypertension type: primary hypertension Pure hypercholesterolemia E78.00 Hyperlipidemia type: pure hypercholesterolemia Benign prostatic hyperplasia with urinary hesitancy N40.1; R39.11 Lower urinary tract symptom detail: urinary hesitancy Lower urinary tract symptom presence: symptoms present
--- NOTE | 2024-12-13 10:05 | Oncology Consultation ---
Date of Consultation December 13, 2024 Assessment & Plan (1) Melena: (2) Anemia: (3) AL amyloidosis: Plan -Patient has iron deficiency anemia secondary to GI bleeding. Scheduled for upper endoscopy and colonoscopy tomorrow. No evidence of hemolysis on laboratory testing, AL amyloidosis appears well-controlled on current treatment regimen. -Recommend he get IV Venofer 300 mg daily x 3 days for iron deficiency anemia. Also recommend starting supplemental B12 1000 mcg daily as B12 level is low normal. -Agree with 2 unit PRBC transfusion today History of Present Illness Reason for Consultation: Anemia, AL amyloidosis Attending Physician: Jas Hills, DO History of Present Illness 79-year-old gentleman with AL amyloidosis diagnosed via renal biopsy for which he is currently on single agent Darzalex injections. Presented with worsening dyspnea and found to have severe anemia with hemoglobin of 5.8, hematocrit of 18.4. Has received 4 units PRBC transfusion since admission. Hemoglobin remains low at 6.1 with hematocrit of 18.5. Iron studies show iron deficiency with ferritin of 36. Of note, patient had similar episode in the past with hemoglobin dropping from 12.7-8.6 on 10/19/2024. Was referred to GI for upper endoscopy and colonoscopy but was waiting for scheduling prior to this pr esentation. Allergies Allergy/AdvReac Type Severity Reaction Status Date / Time montelukast AdvReac Severe Brain fog Verified 12/12/24 10:44 atorvastatin AdvReac Intermediate Muscle Verified 12/12/24 10:44 aches rosuvastatin AdvReac Intermediate Muscle Verified 12/12/24 10:44 aches spironolactone AdvReac Unknown Verified 12/14/24 08:33 tramadol AdvReac Fatigued Verified 12/12/24 10:44 Home Medications Medication Instructions Recorded Confirmed Type acetaminophen 650 mg 650 mg PO DIRECTED 10/30/23 12/12/24 History tablet,extended release (Tylenol 8 Hour) diphenhydramine HCl 25 mg capsule 25 mg PO DIRECTED PRN 10/30/23 12/12/24 History (Benadryl) APPOINTMENTS dabigatran etexilate 150 mg capsule 150 mg PO BID #180 caps 01/20/24 12/12/24 Rx furosemide 40 mg tablet 40 mg PO BID 05/01/24 12/12/24 History metoprolol succinate 50 mg 50 mg PO QAM #90 tabs 08/01/24 12/12/24 Rx tablet,extended release 24 hr daratumumab 1,800 15 ml subcut MONTHLY 08/23/24 12/12/[address]-kmgvaawyuvmdq-boiq 30,000 unit/15 mL subcut soln (Darzalex Faspro) tadalafil 20 mg tablet 20 mg PO DAILY PRN sexual activity 10/05/24 12/12/24 Rx #10 tabs acyclovir 400 mg tablet 400 mg PO BID 11/22/24 12/12/24 History dapagliflozin propanediol 10 mg 10 mg PO QAM 11/22/24 12/12/24 History tablet dexamethasone 4 mg tablet 20 mg PO DIRECTED 12/12/24 12/12/24 History finasteride 5 mg tablet 5 mg PO DAILY 12/12/24 12/12/24 History polysaccharide iron complex 150 mg 150 mg PO 3XWK 12/12/24 12/12/24 History iron capsule Patient History Medical History 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 Smalls Prediabetes Anemia Cardiac amyloidosis Degenerative arthritis BPH (benign prostatic hyperplasia) Maintenance chemotherapy First of every month CAD (coronary artery disease) CKD (chronic kidney disease) stage 3, GFR 30-59 ml/min Atrial fibrillation, permanent Follows with [facility] cardio Male erectile disorder of organic origin Traumatic wound Hx Right leg traumatic wound secondary to shrapnel in [place] Surgical History History of total knee replacement R/L Hx of cardiac catheterization (11/04/22) Prior to amloidosis dx- no stents History of bone marrow biopsy History of biopsy of kidney History of tooth extraction S/P cataract extraction R/L Family History Brother Hodgkin disease Diabetes Mother Ovarian cancer Father Heart disease Myocardial infarction Sister Breast cancer Grandfather Myocardial infarction Other No family history of adverse response to anesthesia Denies family history of Prostate cancer Colorectal cancer Pulmonary embolism Social History Smoking Status: Former smoker Tobacco Type: Cigarettes Age Started Using Tobacco: 16; Age Quit Using Tobacco: 33; packs per day: 1.5; Cigarettes Per Day: 1.5 packs a day.; Second Hand Exposure: Yes; Do You Dip or Chew Tobacco: No; Hx Alcohol Use: Yes Alcohol type: wine Alcohol Intake Frequency: Monthly or L ess Hx Substance Use: No Preferred Language: Citizen Of [place] Communication Ability: Effective Visual Impairment: No Limitations Hearing Ability: Use of Hearing Aid Planimeter Operator Required: No Beliefs That Will Affect Care: None marital status: Current Living Situation: Spouse current occupational status: 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 How many Children do You have: 0 Feels Safe at Home: Yes Childhood Exposure to Second-Hand Smoke: Yes Diet: gluten free and other Diet Comment: dairy free & gluten free only due to how spouse eats during the past year weight has: remained stable Dental Care, Regularly: No Physical Activity Frequency: Daily Physical Activity Frequency Comment: muscle strengthening, 20 minutes Seatbelt Use: always Sunscreen Use: Yes Do you think of yourself as: straight/heterosexual Gender Identity: Male Assistive Devices: Cane Results & Data Vital Signs (Past 12 Hours) Vital Signs Temp Pulse Pulse Resp BP BP Pulse Ox 12/13/24 09:37 36.8 C 100 H 18 105/69 98 12/13/24 09:22 36.5 C 93 H 18 114/78 98 12/13/24 09:01 36.9 C 93 H 17 110/72 99 12/13/24 08:22 36.6 C 99 H 16 123/81 99 12/13/24 06:13 36.8 C 92 H 16 106/71 98 12/13/24 05:55 36.7 C 94 H 16 104/68 98 12/13/24 04:55 36.7 C 99 H 18 102/62 98 12/13/24 04:55 36.6 C 95 H 16 103/58 L 100 12/13/24 04:54 36.7 C 99 H 18 102/62 98 12/13/24 04:25 36.8 C 96 H 16 99/64 L 100 12/13/24 04:24 36.8 C 96 H 16 99/64 L 12/13/24 04:10 36.8 C 95 H 16 107/71 12/13/24 04:09 36.8 C 98 H 16 107/71 12/13/24 03:53 36.6 C 100 H 16 105/68 100 12/13/24 03:40 36.8 C 96 H 18 96/59 L 100 12/13/24 02:35 36.7 C 102 H 18 89/62 L 95 12/13/24 02:05 36.5 C 112 H 16 89/63 L 100 12/13/24 01:35 36.7 C 94 H 16 100/55 L 97 12/13/24 01:05 36.6 C 102 H 16 102/54 L 100 12/13/24 00:50 36.6 C 103 H 16 101/57 L 95 12/13/24 00:24 36.8 C 97 H 14 110/71 98 O2 Del Method O2 Flow Rate 12/13/24 09:37 2 12/13/24 09:22 2 12/13/24 09:01 12/13/24 08:22 Nasal Cannula 2 12/13/24 06:13 2 12/13/24 05:55 2 12/13/24 04:55 2 12/13/24 04:55 2 12/13/24 04:54 12/13/24 04:25 12/13/24 04:24 12/13/24 04:10 12/13/24 04:09 12/13/24 03:53 2 12/13/24 03:40 2 12/13/24 02:35 12/13/24 02:05 12/13/24 01:35 12/13/24 01:05 2 12/13/24 00:50 2 12/13/24 00:24 2
--- NOTE | 2024-12-13 11:23 | Gastrointestinal Consultation ---
Date of Consultation December 13, 2024 Assessment & Plan (1) Symptomatic anemia: Patient admitted with symptomatic anemia. No clear GI bleeding that patient is noticing, though he has never had an EGD and colonoscopy in the past. - continue to follow hgb/hct and transfuse as needed. - recommend against nsaid use. - will need eventual EGD and Colonoscopy. will discuss timing with Dr. Henson. -Further recommendations to come with Supervising GI provider on medical rounds. Please see co-signature comments. Supervising Physician Co-Signing Physician Notes I saw and examined this patient with our nurse practitioner and agree with her assessment and plan. Patient presents with significant anemia without significant GI symptoms. No evidence of overt bleeding. Due to significant anemia we will proceed with endoscopy and colonoscopy to exclude GI blood loss as source of anemia. Amyloidosis can involve the GI tract and can cause bleeding. History of Present Illness Reason for Consultation: acute on chronic anemia, ? 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 He was seen by his primary enterprise manager in the office and did not appear to be well, so was told to come in the ER for further evaluation. Upon evaluation in the ER, Hgb noted to be 5.2 and patient was admitted. patient states that he's been having a work-up for the anemia as an outpatient with hematology that he reports is unremarkable. He was advised to set up an EGD and colonoscopy for further evaluation, but he has not gotten this done yet. Patient denies any nausea, vomiting, abdominal pain, changes in bowels, melena, or brbpr. He does admit to recent ibuprofen use for shoulder pain. He reports that his last pradaxa use was two days ago. 12/13/24 wbc 8, hgb 5.8, hct 18.4, plts 230. 12/12/24 Iron 46, INR 1.8, Na 134, K 3.6, BUN 50, Cr 1.22. Allergies Allergy/AdvReac Type Severity Reaction Status Date / Time montelukast AdvReac Severe Brain fog Verified 12/12/24 10:44 atorvastatin AdvReac Intermediate Muscle Verified 12/12/24 10:44 aches rosuvastatin AdvReac Intermediate Muscle Verified 12/12/24 10:44 aches tramadol AdvReac Fatigued Verified 12/12/24 10:44 spironolactone AdvReac Unknown Uncoded 12/12/24 10:44 Home Medications Medication Instructions Recorded Confirmed Type acetaminophen 650 mg 650 mg PO DIRECTED 10/30/23 12/12/24 History tablet,extended release (Tylenol 8 Hour) diphenhydramine HCl 25 mg capsule 25 mg PO DIRECTED PRN 10/30/23 12/12/24 History (Benadryl) APPOINTMENTS dabigatran etexilate 150 mg capsule 150 mg PO BID #180 caps 01/20/24 12/12/24 Rx furosemide 40 mg tablet 40 mg PO BID 05/01/24 12/12/24 History metoprolol succinate 50 mg 50 mg PO QAM #90 tabs 08/01/24 12/12/24 Rx tablet,extended release 24 hr daratumumab 1,800 15 ml subcut MONTHLY 08/23/24 12/12/24 History ac-rgvbsbzrmties-fkfn 30,000 unit/15 mL subcut soln (Darzalex Faspro) tadalafil 20 mg tablet 20 mg PO DAILY PRN sexual activity 10/05/24 12/12/24 Rx #10 tabs acyclovir 400 mg tablet 400 mg PO BID 11/22/24 12/12/24 History dapagliflozin propanediol 10 mg 10 mg PO QAM 11/22/24 12/12/24 History tablet dexamethasone 4 mg tablet 20 mg PO DIRECTED 12/12/24 12/12/24 History finasteride 5 mg tablet 5 mg PO DAILY 12/12/24 12/12/24 History polysaccharide iron complex 150 mg 150 mg PO 3XWK 12/12/24 12/12/24 History iron capsule Patient History Medical History 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 Smalls Prediabetes Anemia Cardiac amyloidosis Degenerative arthritis BPH (benign prostatic hyperplasia) Maintenance chemotherapy First of every month CAD (coronary artery disease) CKD (chronic kidney disease) stage 3, GFR 30-59 ml/min Atrial fibrillation, permanent Follows with [facility] cardio Male erectile disorder of organic origin Traumatic wound Hx Right leg traumatic wound secondary to shrapnel in [place] Surgical History History of total knee replacement R/L Hx of cardiac catheterization (11/04/22) Prior to amloidosis dx- no stents History of bone marrow biopsy History of biopsy of kidney History of tooth extraction S/P cataract extraction R/L Family History Brother Hodgkin disease Diabetes Mother Ovarian cancer Father Heart disease Myocardial infarction Sister Breast cancer Grandfather Myocardial infarction Other No family history of adverse response to anesthesia Denies family history of Prostate cancer Colorectal cancer Pulmonary embolism Social History Smoking Status: Former smoker Tobacco Type: Cigarettes Age Started Using Tobacco: 16; Age Quit Using Tobacco: 33; packs per day: 1.5; Cigarettes Per Day: 1.5 packs a day.; Second Hand Exposure: Yes; Do You Dip or Chew Tobacco: No; Hx Alcohol Use: Yes Alcohol type: wine Alcohol Intake Frequency: Monthly or Less Hx Substance Use: No Preferred Language: Irish Communication Ability: Effective Visual Impairment: No Limitations Hearing Ability: Use of Hearing Aid Senior Drupal Developer Required: No Beliefs That Will Affect Care: None marital status: Current Living Situation: Spouse 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 occupational 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 How many Children do You have: 0 Feels Safe at Home: Yes Childhood Exposure to Second-Hand Smoke: Yes Diet: gluten free and other Diet Comment: dairy free & gluten free only due to how spouse eats during the past year weight has: remained stable Dental Care, Regularly: No Physical Activity Frequency: Daily Physical Activity Frequency Comment: muscle strengthening, 20 minutes Seatbelt Use: always Sunscreen Use: Yes Do you think of yourself as: straight/heterosexual Gender Identity: Male Assistive Devices: Cane Review of Systems Review of Systems: All systems reviewed & are unremarkable except as noted in HPI & below Physical Exam Constitutional: WD/WN, vitals as above Respiratory: normal respiratory effort, lungs clear to auscultation Cardiovascular: Rate/Rhythm: regular rate and regular rhythm Gastrointestinal (Abdomen): normal bowel sounds, soft, nontender, no hepatosplenomegaly Psychiatric: Orientation: alert and oriented x 3 Affect: euthymic affect Results & Data Vital Signs (Past 12 Hours) Vital Signs Temp Pulse Pulse Resp BP BP Pulse Ox 12/13/24 10:07 98 F 91 H 18 100/64 100 12/13/24 09:37 98.2 F 100 H 18 105/69 98 12/13/24 09:22 97.7 F 93 H 18 114/78 98 12/13/24 09:01 98.4 F 93 H 17 110/72 99 12/13/24 09:00 12/13/24 08:22 97.9 F 99 H 16 123/81 99 12/13/24 06:13 98.2 F 92 H 16 106/71 98 12/13/24 05:55 98.1 F 94 H 16 104/68 98 12/13/24 04:55 98.1 F 99 H 18 102/62 98 12/13/24 04:55 98 F 95 H 16 103/58 L 100 12/13/24 04:54 98.1 F 99 H 18 102/62 98 12/13/24 04:25 98.3 F 96 H 16 99/64 L 100 12/13/24 04:24 98.3 F 96 H 16 99/64 L 12/13/24 04:10 98.2 F 95 H 16 107/71 12/13/24 04:09 98.2 F 98 H 16 107/71 12/13/24 03:53 98 F 100 H 16 105/68 100 12/13/24 03:40 98.2 F 96 H 18 96/59 L 100 12/13/24 02:35 98.1 F 102 H 18 89/62 L 95 12/13/24 02:05 97.7 F 112 H 16 89/63 L 100 12/13/24 01:35 98.1 F 94 H 16 100/55 L 97 12/13/24 01:05 97.9 F 102 H 16 102/54 L 100 12/13/24 00:50 97.9 F 103 H 16 101/57 L 95 12/13/24 00:24 98.3 F 97 H 14 110/71 98 O2 Del Method O2 Flow Rate 12/13/24 10:07 2 12/13/24 09:37 2 12/13/24 09:22 2 12/13/24 09:01 12/13/24 09:00 Nasal Cannula 12/13/24 08:22 Nasal Cannula 2 12/13/24 06:13 2 12/13/24 05:55 2 12/13/24 04:55 2 12/13/24 04:55 2 12/13/24 04:54 12/13/24 04:25 12/13/24 04:24 12/13/24 04:10 12/13/24 04:09 12/13/24 03:53 2 12/13/24 03:40 2 12/13/24 02:35 12/13/24 02:05 12/13/24 01:35 12/13/24 01:05 2 12/13/24 00:50 2 12/13/24 00:24 2 Laboratory Results Laboratory Results - last 48 hr 12/12/24 12/12/24 12/12/24 11:36 11:40 11:42 WBC 11.12 H RBC 1.74 L Hgb 5.2 L* POC Hgb 5.4 L* Hct 17.1 L* POC Hct 16 L* MCV 98.3 MCH 29.9 MCHC 30.4 L RDW Std Deviation 62.4 H RDW Coeff of Andre 19.5 H Plt Count 308 MPV 10.7 Immature Gran % (Auto) 1.0 Neut % (Auto) 70.4 Lymph % (Auto) 17.9 [place] % (Auto) 10.4 Eos % (Auto) 0.1 Baso % (Auto) 0.2 Neut # (Auto) 7.83 H Lymph # (Auto) 1.99 [place] # (Auto) 1.16 H Eos # (Auto) 0.01 Baso # (Auto) 0.02 Immature Gran # (Auto) 0.11 Polychromasia 2+ Anisocytosis Present Microcytosis Tear Drop Cells 1+ PT 18.2 H INR 1.8 H APTT 41 H PTT Ratio 1.5 POC Sodium 134 L Sodium 135 L POC Potassium 3.5 Potassium 3.6 POC Chloride 96 L Chloride 99 Carbon Dioxide 24 POC Total CO2 22 L Anion Gap 12 H POC Anion Gap 21.0 POC BUN 44 H BUN 50 H Creatinine 1.22 POC Creatinine 1.4 H Est Cr Clr Drug Dosing 52.6 eGFR 59.56 BUN/Creatinine Ratio 41.0 H Glucose 155 H POC Glucose (other) 153 H Calcium 8.4 L POC Ioniz Calcium Boyd 1.07 L Phosphorus 3.7 Magnesium 2.3 Iron 46 Total Bilirubin 1.1 H AST 20 ALT 16 Alkaline Phosphatase 78 Total Creatine Kinase 347 H Troponin I High Sens 68.7 H* Total Protein 5.3 L Albumin 3.5 Globulin 1.8 L Albumin/Globulin Ratio 1.9 Lipase 33 TSH 2.790 Urine Color Urine Appearance Urine pH Ur Specific [place] Urine Protein Urine Glucose (UA) Urine Ketones Urine Blood Urine Nitrite Urine Bilirubin Urine Urobilinogen Ur Leukocyte Esterase Urine Comment Blood Type A Negative Antibody Screen POSITIVE A Antibody Identification Panagglutinin due to drug Antibody ID Comment Cancelled Crossmatch See Detail 12/12/24 12/12/24 12/13/24 13:55 Unknown 08:06 WBC 8.03 RBC 1.95 L Hgb 5.8 L* POC Hgb Hct 18.4 L* POC Hct MCV 94.4 MCH 29.7 MCHC 31.5 L RDW Std Deviation 56.2 H RDW Coeff of Andre 18.4 H Plt Count 230 MPV 10.3 Immature Gran % (Auto) 0.7 Neut % (Auto) 73.6 Lymph % (Auto) 13.8 [place] % (Auto) 11.7 Eos % (Auto) 0.1 Baso % (Auto) 0.1 Neut # (Auto) 5.90 Lymph # (Auto) 1.11 L [place] # (Auto) 0.94 H Eos # (Auto) 0.01 Baso # (Auto) 0.01 Immature Gran # (Auto) 0.06 Polychromasia 3+ Anisocytosis Microcytosis Present Tear Drop Cells PT INR APTT PTT Ratio POC Sodium Sodium POC Potassium Potassium POC Chloride Chloride Carbon Dioxide POC Total CO2 Anion Gap POC Anion Gap POC BUN BUN Creatinine POC Creatinine Est Cr Clr Drug Dosing eGFR BUN/Creatinine Ratio Glucose POC Glucose (other) Calcium POC Ioniz Calcium [place] Phosphorus Magnesium Iron Total Bilirubin AST ALT Alkaline Phosphatase Total Creatine Kinase Troponin I High Sens 69.6 H* Total Protein Albumin Globulin Albumin/Globulin Ratio Lipase TSH Urine Color Yellow Urine Appearance Clear Urine pH 6.5 Ur Specific [place] 1.029 Urine Protein Negative Urine Glucose (UA) 2+ H Urine Ketones Negative Urine Blood Negative Urine Nitrite Negative Urine Bilirubin Negative Urine Urobilinogen Negative Ur Leukocyte Esterase Negative Urine Comment Blood Type Antibody Screen Antibody Identification Antibody ID Comment Crossmatch Coding Level of Care Code 65927 INT INP/OBS CARE MIN Diagnoses Symptomatic anemia D64.9
[2024-12-13 16:39] LABS: Hematocrit (blood only) 22.5 % (42.0-52.0); Hemoglobin 7.5 g/dl (14.0-18.0); Immature Granulocytes # (auto) 0.08 K/uL (0.01-0.20); Immature Granulocytes % (auto) 0.9 %; Mean Corpuscular Hemoglobin 30.7 pg (25.0-34.0); Mean Corpuscular Volume 92.2 fL (80.0-100.0); Platelet Count 234 K/uL (130-400); RDW Standard Deviation 52.0 fL (36.4-46.3); Red Blood Count 2.44 M/uL (4.70-6.10); White Blood Count 8.74 K/ul (4.8-10.8)
[2024-12-13 16:56] LABS: Iron 123.0 mcg/dl (35-175); Total Iron Binding Cap Calc 375.0 mcg/dl (250-450); Transferrin 268.0 mg/dl (200-360); Transferrin (FE) Percent Satur 33.0 % (20-50)
[2024-12-13 17:15] LABS: Ferritin 36.6 ng/ml (8-388)
[2024-12-13] MEDS: LAVAGE SOLUTION 4000ML PO SCH (17:19)
[2024-12-13 17:25] LABS: Folate (Folic Acid),Ser orPlas 10.39 ng/ml (>5.38)
[2024-12-13 17:26] LABS: Vitamin B12 266.0 pg/ml (180-914)
[2024-12-13 17:38] LABS: Ovalocytes 1+; Poikilocytosis Present; Polychromasia 1+
[2024-12-14 08:15] LABS: Alanine Aminotransferase 12.0 U/L (7-52); Albumin Globulin Ratio 2.0 (0.9-2); Albumin Level 2.8 gm/dl (3.4-5.0); Alkaline Phosphatase 59.0 U/L (34-104); Anion Gap 5.0 (3-11); Bilirubin,Total 1.3 mg/dl (0.2-1.0); Blood Urea Nitrogen 50.0 mg/dl (6-23); Calcium 7.9 mg/dl (8.6-10.3); Carbon Dioxide 31.0 mmol/L (21-32); Chloride 105.0 mmol/L (98-107); Creatinine Clr Calc Pharmacy 49.3 ml/min; Globulin 1.4 gm/dl (2.5-4.0); Glucose 130.0 mg/dl (70-99(Fasting)); Magnesium 2.2 mg/dl (1.7-2.4); Potassium 3.7 mmol/L (3.5-5.1); Sodium 141.0 mmol/L (136-145); Total Protein 4.2 gm/dl (6.0-8.3)
--- NOTE | 2024-12-14 08:17 | History & Physical Bridge Note ---
Date of Service December 14, 2024 History & Physical Bridge Note I have examined the patient, reviewed the History & Physical and in the interval since the performance of the History & Physical I have noted the following changes of clinical significance: no changes noted Spoke with patient this morning. He completed his prep and has been NPO as directed. No concerns. He does note ongoing melena. Hgb down to 6.1 from 7.5 g/dl. Please plan to transfuse to get Hgb above 7g/dl. Plan to proceed with EGD and Colonoscopy as scheduled later today. Supervising Physician Co-Signing Physician Notes I saw and examined this patient with our nurse practitioner and agree with her assessment and plan. Tolerated prep well. Proceed with endoscopy colonoscopy today.
[2024-12-14 08:19] LABS: Hematocrit (blood only) 18.5 % (42.0-52.0); Hemoglobin 6.1 g/dl (14.0-18.0); Mean Corpuscular Hemoglobin 30.8 pg (25.0-34.0); Mean Corpuscular Volume 93.4 fL (80.0-100.0); Platelet Count 209 K/uL (130-400); RDW Standard Deviation 53.6 fL (36.4-46.3); Red Blood Count 1.98 M/uL (4.70-6.10); White Blood Count 7.18 K/ul (4.8-10.8)
[2024-12-14] MEDS ORDERED: SODIUM CHLORIDE 0.9% 100 ML IV PRN ×2 (08:21→08:31)
[2024-12-14 08:27] LABS: Immature Granulocytes # (auto) 0.06 K/uL (0.01-0.20); Immature Granulocytes % (auto) 0.8 %; Polychromasia 1+
--- NOTE | 2024-12-14 11:05 | Discharge Summary ---
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, cardiac amyloidosis, CKD stage III, HFpEF, atrial fibrillation on Pradaxa, CAD, HLD - coming in with multiple episodes of syncope and dyspnea Symptomatic Anemia - Hgb down to 5.2 on admission; acute on chronic anemia - s/p 2 units pRBCs overnight/this morning - hgb still <6 - two more units ordered - hold Pradaxa - IV PPI BID - GI consulted - hem/onc consulted 12/14 - Hgb dropped back down to 6.1 today after climbing to >7 - two more units ordered - initial plan was for EGD/colonoscopy, but may need to be delayed - patient did c/o dark tarry stool - IV PPI BID, clears, NPO c midnight AL Amyloidosis - on oral chemotherapy at home Cardiac Amyloidosis HFpEF - hold diuretics due to the significant anemia to prevent dehydration CKD stage 3 - noted - avoid nephrotoxic agents if able Admission HPI Per Admitting Provider This is an 79 year old male with a PMH 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 He was seen by his primary garbage truck helper in the office and did not appear to be well, so was told to come in the ER for further eval. in the ER, Hgb noted to be 5.2; patient states that he's been having a work-up for the anemia as an outpatient; he was told by his hem/onc doctor that he needed an EGD/colonoscopy for further eval. He has not gotten this done recently. Discharge Exam VITALS: Reviewed. WEIGHT/BMI reviewed. GEN: Healthy appearing, well-developed, NAD. PSYCH: Good Judgment. AOx3. Normal memory, mood, and affect. HEENT -Head: NC/AT; -Eyes: PERRL, EOMI. No discharge or redness; -Ears: External ears are normal. Normal TMs. -Nose: Normal nares. -Mouth and throat: MMM. Normal gums, mucosa, palate,. Good dentition. NECK: Supple, with no masses. CV: RRR, no m/r/g. LUNGS: CTAB, no w/r/c. ABD: Soft, NT/ND, NBS, no masses or organomegaly. : N/A SKIN: Warm, well perfused. No skin rashes or abnormal lesions. MSK: No deformities, Normal gait. EXT: No clubbing, cyanosis, or edema. NEURO: Ambulating with no limitations. Normal muscle strength and tone. No focal deficits. Discharge Plan Discharge Items Reason For Visit: ANEMIA, SYNCOPE Condition on Discharge: Serious Activity: Resume your previous activity Follow-up/Referrals: Rodriguez Presley MD [Primary Care Provider] - Medications and DC Order Prescriptions: No Action dabigatran etexilate 150 mg capsule 150 mg PO BID Qty: 180 3RF tadalafil 20 mg tablet 20 mg PO DAILY PRN (Reason: sexual activity) Qty: 10 5RF Rx Instructions: administer approximately 30min before sexual activity; do not use more than 1 dose per 24hrs furosemide 40 mg tablet 40 mg PO BID Darzalex Faspro 1,800 mg-30,000 unit/15 mL solution 15 ml subcut MONTHLY Rx Instructions: 1800mg subcutaneously QMONTH; metoprolol succinate 50 mg tablet extended release 24 hr 50 mg PO QAM Qty: 90 3RF polysaccharide iron complex 150 mg iron capsule 150 mg PO 3XWK Rx Instructions: 150 mg orally every Mon, Wed, Fri acetaminophen [Tylenol 8 Hour] 650 mg Tablet Extended Release 650 mg PO DIRECTED Rx Instructions: Take 650mg by mouth once weekly before infusion () diphenhydramine HCl [Benadryl] 25 mg Capsule 25 mg PO DIRECTED PRN (Reason: APPOINTMENTS) Rx Instructions: Take 25mg by mouth before infusions on dexamethasone 4 mg tablet 20 mg PO DIRECTED Rx Instructions: Take 20mg by mouth once month 3 hours before infusion () dapagliflozin propanediol 10 mg tablet 10 mg PO QAM Patient Comments: "taking for heart/not for diabetes" acyclovir 400 mg Tablet 400 mg PO BID Patient Comments: takes to prevent infection finasteride 5 mg tablet 5 mg PO DAILY Patient Comments: qam Rx Instructions: TAKE 1 TABLET BY MOUTH ONCE DAILY Admission Data Admit Date/Time: 12/12/24 18:37 Attending Provider: Jas Hills Admit Provider: Jas Hills Primary Care Provider: Rodriguez Presley Other Providers: Jas Hills; Renny Henson I; Winifred Smalls Hospital Stay Data Consultations 12/12/24 15:17 ED Decision to Admit Stat 12/12/24 18:38 Consult Gastroenterology Routine 12/13/24 09:41 Consult Oncology Routine Procedures Performed Operation Date: 12/15/24 16:30 <No data on this case meets the specified criteria> Diagnostic Imagining Performed 12/12/24 11:52 CT cervical spine wo con Stat CT head/brain wo con Stat 12/12/24 11:55 CT abd pelvis IV con only Stat CT chest diagnostic w con Stat Home Health Attestation I certify that this patient is under my care and that I, or a physicians education assistant working with me, had a face to-face encounter that meets the [id number] encounter requirements with this patient. The encounter with the patient was in whole, or in part, for the following medical condition, which is the primary reason for home health care (list medical condition): I certify that, based on my findings, the following services are medically necessary home health services: My clinical findings support the need for the above services because: Further, I certify that my clinical findings support that this patient is homebound (i.e. absences from home require considerable and taxing effort and are for medical reasons or buddhism services or infrequently or of short duration when for other reasons) because: Certification for Home Health Services: Based on the above findings, I certify that this patient is confined to the home and needs intermittent usp care, physical therapy and/or speech therapy or continues to need occupational therapy. The patient is under my care, and I have initiated the establishment of the plan of care. This patient will be followed by a physician who will periodically review the plan of care. Coding Diagnoses Symptomatic anemia D64.9 AL amyloidosis E85.81 Primary hypertension I10 Hypertension type: primary hypertension Pure hypercholesterolemia E78.00 Hyperlipidemia type: pure hypercholesterolemia Benign prostatic hyperplasia with urinary hesitancy N40.1; R39.11 Lower urinary tract symptom presence: symptoms present Lower urinary tract symptom detail: urinary hesitancy
--- NOTE | 2024-12-14 11:11 | Progress Note ---
Date of Service December 14, 2024 Assessment & Plan (1) Symptomatic anemia: (2) AL amyloidosis: (3) Hypertension: Hypertension type: primary hypertension Qualified Code(s): I10 - Essential (primary) hypertension (4) Hyperlipidemia: Hyperlipidemia type: pure hypercholesterolemia Qualified Code(s): E78.00 - Pure hypercholesterolemia, unspecified (5) BPH (benign prostatic hyperplasia): Lower urinary tract symptom presence: symptoms present Lower urinary tract symptom detail: urinary hesitancy Qualified Code(s): N40.1 - Benign prostatic hyperplasia with lower urinary tract symptoms; R39.11 - Hesitancy of micturition Plan This is an 79 year old male with a PMH 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, cardiac amyloidosis, CKD stage III, HFpEF, atrial fibrillation on Pradaxa, CAD, HLD - coming in with multiple episodes of syncope and dyspnea Symptomatic Anemia - Hgb down to 5.2 on admission; acute on chronic anemia - s/p 2 units pRBCs overnight/this morning - hgb still <6 - two more units ordered - hold Pradaxa - IV PPI BID - GI consulted - hem/onc consulted 12/14 - patient c/o dark tarry stool - GI aware, plan is for EGD/colonoscopy, possibly on 12/15 due to the anemia - IV PPI BID - Hgb down to <7 - two units of PRBCs ordered AL Amyloidosis - on oral chemotherapy at home Cardiac Amyloidosis HFpEF - hold diuretics due to the significant anemia to prevent dehydration CKD stage 3 - noted - avoid nephrotoxic agents if able Admission and Anticipated Discharge Date Admission Date: December 12, 2024 Subjective Patient states he feels better today. Hgb this morning still <6. no chest pain, patien'ts breathing improving. denies dizziness, no lightheadedness. Review of Systems Review of Systems: Constitutional: No Weight Change, No Fever, No Chills, No Night Sweats, No Fatigue, No Malaise ENT/Mouth: No Hearing Changes, No Ear Pain, No Nasal Congestion, No Sinus Pain, No Hoarseness, No sore throat, No Rhinorrhea, No Swallowing Difficulty Eyes: No Eye Pain, No Swelling, No Redness, No Foreign Body, No Discharge, No Vision Changes Cardiovascular: No Chest Pain, No SOB, No PND, No Dyspnea on Exertion, No Orthopnea, No Claudication, No Edema, No Palpitations Respiratory: No Cough, No Sputum, No Wheezing, No Smoke Exposure, No Dyspnea Gastrointestinal: No Nausea, No Vomiting, No Diarrhea, No Constipation, No Pain, No Heartburn, No Anorexia, No Dysphagia, No Hematochezia, No Melena, No Flatulence, No Jaundice Genitourinary: No Dysmenorrhea, No DUB, No Dyspareunia, No Dysuria, No Urinary Frequency, No Hematuria, No Urinary Incontinence, No Urgency, No Flank Pain, No Urinary Flow Changes, No Hesitancy Musculoskeletal: No Arthralgias, No Myalgias, No Joint Swelling, No Joint Stiffness, No Back Pain, No Neck Pain, No Injury History Skin: No Skin Lesions, No Pruritis, No Hair Changes, No Breast/Skin Changes, No Nipple Discharge Neuro: No Weakness, No Numbness, No Paresthesias, No Loss of Consciousness, No Syncope, No Dizziness, No Headache, No Coordination Changes, No Recent Falls Psych: No Anxiety/Panic, No Depression, No Insomnia, No Personality Changes, No Delusions, No Rumination, No SI/HI/AH/VH, No Social Issues, No Memory Changes, No Violence/Abuse Hx., No Eating Concerns Heme/Lymph: No Bruising, No Bleeding, No Transfusions History, No Lymphadenopathy Endocrine: No Polyuria, No Polydipsia, No Temperature Intolerance Results & Data Vital Signs (Past 12 Hours) Vital Signs Temp Pulse Resp BP Pulse Ox O2 Del Method O2 Flow Rate 12/14/24 08:38 Nasal Cannula 2 12/14/24 07:29 36.5 C 99 H 16 113/70 99 Room Air 12/13/24 23:11 36.6 C 80 20 135/83 92 Nasal Cannula 2 PG Care Time/CCT Total # of Minutes Spent Total Time Spent with Patient: Total time spent is greater than 50% in coordination of care (as documented) at patient's floor/unit and/or counseling patient: Coding Level of Care Code 82266 SUB INP/OBS CARE 3/50MIN Diagnoses Symptomatic anemia D64.9 AL amyloidosis E85.81 Primary hypertension I10 Hypertension type: primary hypertension Pure hypercholesterolemia E78.00 Hyperlipidemia type: pure hypercholesterolemia Benign prostatic hyperplasia with urinary hesitancy N40.1; R39.11 Lower urinary tract symptom presence: symptoms present Lower urinary tract symptom detail: urinary hesitancy
--- NOTE | 2024-12-14 14:16 | Gastroenterology Progress Note ---
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 - Continue to avoid NSAIDs, blood thinners. - Continue to trend H/H and transfuse to maintain Hgb. Discussed with hospitalist. - They'll look to transfuse patient but blood products will be delayed as it has to come from outside hospital. - We'll plan to reschedule EGD and Colonoscopy tomorrow. - Patient may have clear liquids today with partial prep tonight. NPO after midnight. Admission and Anticipated Discharge Date Admission Date: December 12, 2024 Supervising Physician Co-Signing Physician Notes I saw and examined this patient with our nurse practitioner and agree with her assessment and plan. Hemoglobin 6.1 blood products are not available until later this evening due to antibodies. Will reschedule procedure for tomorrow posttransfusion. 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 We had planned on proceeding today with EGD and Colonoscopy. However morning Hgb returned at 6.1g/dl. Clinically he does endorse ongoing melena with Colonoscopy prep. Otherwise he feels well. He denies any fevers, chills, abdominal pain, N/V/D, hematochezia. Pertinent diagnostics - Hgb - 6.1 g/dl Hct 18.5%, WBC 7.18, Plt 209k/ul. - BUN 50, Cr 1.3, Glucose 130, Ca 7.9, Mg 2.2, Transferrin sat 33%, Ferritin 36, -T-Bili 1.3g/dl, AST 15, ALT 12, Alk Phos 59, Albumin 2.8 Review of Systems Review of Systems: See HPI Physical Exam Physical Exam: Constitutional: NAD. Alert. Answering questions appropriately. Respiratory: Breathing is even, non-labored. Lungs abbott are clear to aus cultation anteriorly. Cardiovascular: Irregular irregular rhythm. Rate controlled. no murmurs, rubs or gallops appreciated. Gastrointestinal (Abdomen): Normoactive bowel sounds x4, soft, non-distended, non-tender. Musculoskeletal: Lying in bed comfortably. No peripheral edema. Results & Data Results & Data Vital Signs (Past 12 Hours) Vital Signs Temp Pulse Resp BP Pulse Ox O2 Del Method O2 Flow Rate 12/14/24 08:38 Nasal Cannula 2 12/14/24 07:29 97.7 F 99 H 16 113/70 99 Room Air PG Care Time/CCT Total # of Minutes Spent Total Time Spent with Patient: Total time spent is greater than 50% in coordination of care (as documented) at patient's floor/unit and/or counseling patient: Coding Level of Care Code 50163 SUB INP/OBS CARE 2/35MIN Diagnoses Melena K92.1
--- NOTE | 2024-12-15 07:56 | History & Physical Bridge Note ---
Date of Service December 15, 2024 History & Physical Bridge Note I have examined the patient, reviewed the History & Physical and in the interval since the performance of the History & Physical I have noted the following changes of clinical significance: no changes noted Patient seen this morning. He was NPO after midnight. Completed prep yesterday. Plan for tap water enema this morning. Received blood over night x 2 U. H/H pending. Plan to proceed with EGD and Colonoscopy. Supervising Physician Co-Signing Physician Notes I saw and examined this patient with our nurse practitioner and agree with her assessment and plan. Received 2 units of packed red blood cells last night. Will proceed with endoscopy and colonoscopy today.
[2024-12-15 08:12] LABS: Hematocrit (blood only) 20.8 % (42.0-52.0); Hemoglobin 7.0 g/dl (14.0-18.0); Mean Corpuscular Hemoglobin 31.1 pg (25.0-34.0); Mean Corpuscular Volume 92.4 fL (80.0-100.0); Platelet Count 216 K/uL (130-400); RDW Standard Deviation 50.8 fL (36.4-46.3); Red Blood Count 2.25 M/uL (4.70-6.10); White Blood Count 5.68 K/ul (4.8-10.8)
[2024-12-15] MEDS ORDERED: SODIUM CHLORIDE 0.9% 100 ML IV PRN (08:15)
[2024-12-15 08:36] LABS: Anion Gap 7.0 (3-11); Blood Urea Nitrogen 36.0 mg/dl (6-23); Calcium 7.9 mg/dl (8.6-10.3); Carbon Dioxide 29.0 mmol/L (21-32); Chloride 103.0 mmol/L (98-107); Creatinine Clr Calc Pharmacy 58.8 ml/min; Glucose 115.0 mg/dl (70-99(Fasting)); Potassium 3.5 mmol/L (3.5-5.1); Sodium 139.0 mmol/L (136-145)
[2024-12-15 09:04] LABS: Anisocytosis Present; Immature Granulocytes # (auto) 0.04 K/uL (0.01-0.20); Immature Granulocytes % (auto) 0.7 %; Polychromasia 1+
--- NOTE | 2024-12-15 10:57 | Hospitalist Progress Note ---
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 #Symptomatic Anemia hgb 5.2 on admission; acute on chronic anemia. Has been having melena. On Darzalex for AL amyloidosis outpatient. - on hold Pradaxa on hold for A-fib hgb stable at 7 this AM w/ critical hematocrit of 20.8. --> additional unit of PRBCs given 12/15 w/ repeat H&H pending. 7 units PRBCs transfused thus far this hospital stay. heme onc consulted --> recommended IV Venofer x 3 doses and recommends adding vitamin B12 1st dose of IV iron given 12/15, consider additional doses prior to dc. Continue PO iron GI consulted --> s/p EGD/CN 12/15 w/ no overt signs of bleeding. Consider SB capsule on outpatient basis. Continue PPI #AL Amyloidosis Follows w/ heme/onc outpatient. regimen: Darzalex. #Cardiac Amyloidosis | HFpEF | A fib Follows w/ outpatient cardiology. Echo 08/31 - EF 60-65%; mild-mod mitral regurg. Outpatient meds include: Metoprolol succinate; Lasix BID; Pradaxa hold diuretics due to the significant anemia to prevent dehydration # CKD stage 3 follows w/ nephro outpatient. Creat baseline 1.1 - 1.44 - within baseline @ 1.09 On dapagliflozin outpatient - hold while inpatient. #BPH - finasteride DVT prophylaxis: hold in the setting of anemia Code: full Admission and Anticipated Discharge Date Admission Date: December 12, 2024 Supervising Physician Co-Signing Physician Notes PAM Supervision Note: I did not personally see or examine the patient today, but I verified all atkinson points of PAM Gallagher's assessment and plan with the following exceptions/additions: Patient here with significant anemia likely secondary to treatment for his amyloidosis plus possible GI bleed. Also with iron and vitamin B12 deficiency. - Transfuse 1 unit PRBCs today - Start IV Venofer 300 mg daily x 3 doses - Start vitamin B12 1000 mcg p.o. daily as per hematology recommendation - Needs small bowel capsule endoscopy as an outpatient as no source of bleeding seen on EGD and colonoscopy - Follow CBC - For elevated troponin on admission with some ST depressions in lateral leads- likely due to severe anemia, no further evaluation needed at this time - Holding home Pradaxa until anemia stabilizes - Dark stools could just be from oral iron-discontinue oral iron at this time as giving IV iron Subjective Joshua was seen & examined this morning. He states he was going well today. He states that his bowel prep process went well, he had not had an AM BM at time of my encounter. He denied CP, SOB, N/V, abdominal pain. Physical Exam Physical Exam: General: NAD, VS: BP 121/78; P75; R20; T36.1 Resp: normal respiratory effort, lungs clear to auscultation CV: RRR, no murmur Abd: normal bowel sounds, non tender, soft Extremities: Moves all extremities, no edema Neuro: A&O x3 Skin: intact, no lesions noted Results & Data Results & Data Vital Signs (Past 12 Hours) Vital Signs Temp Pulse Pulse Resp BP BP Pulse Ox 12/15/24 10:08 36.6 C 80 16 116/75 96 12/15/24 09:53 36.5 C 78 16 109/69 100 12/15/24 09:53 36.7 C 83 16 112/71 99 12/15/24 09:32 36.4 C 83 16 103/62 98 12/15/24 07:52 36.4 C L 97 H 16 137/80 95 12/15/24 07:20 12/15/24 03:02 36.7 C 81 18 113/75 96 12/15/24 02:38 36.6 C 82 16 122/86 96 12/15/24 01:38 36.9 C 78 16 117/78 98 12/15/24 01:08 36.7 C 80 18 107/71 97 12/15/24 00:53 36.7 C 81 18 117/77 98 12/15/24 00:35 36.7 C 85 16 121/75 98 12/15/24 00:04 36.6 C 88 18 121/71 100 12/14/24 23:53 36.4 C L 88 16 124/77 95 O2 Del Method O2 Flow Rate 12/15/24 10:08 1 12/15/24 09:53 1 12/15/24 09:53 1 12/15/24 09:32 1 12/15/24 07:52 Room Air 12/15/24 07:20 Nasal Cannula 1 12/15/24 03:02 1 12/15/24 02:38 1 12/15/24 01:38 1 12/15/24 01:08 1 12/15/24 00:53 1 12/15/24 00:35 1 12/15/24 00:04 1 12/14/24 23:53 1 PG Care Time/CCT Total # of Minutes Spent Total Time Spent with Patient: Total time spent is greater than 50% in coordination of care (as documented) at patient's floor/unit and/or counseling patient: Coding Level of Care Code 26202 SUB INP/OBS CARE 2/35MIN Diagnoses Symptomatic anemia D64.9 AL amyloidosis E85.81 Primary hypertension I10 Hypertension type: primary hypertension Pure hypercholesterolemia E78.00 Hyperlipidemia type: pure hypercholesterolemia Benign prostatic hyperplasia with urinary hesitancy N40.1; R39.11 Lower urinary tract symptom detail: urinary hesitancy Lower urinary tract symptom presence: symptoms present (3) Hypertension Hypertension type: primary hypertension Qualified Code(s): I10 - Essential (primary) hypertension (4) Hyperlipidemia Hyperlipidemia type: pure hypercholesterolemia Qualified Code(s): E78.00 - Pure hypercholesterolemia, unspecified (5) BPH (benign prostatic hyperplasia) Lower urinary tract symptom detail: urinary hesitancy Lower urinary tract symptom presence: symptoms present Qualified Code(s): N40.1 - Benign prostatic hyperplasia with lower urinary tract symptoms; R39.11 - Hesitancy of micturition"
--- NOTE | 2024-12-15 14:26 | Anesthesiology Consultation ---
Date of Service December 15, 2024 Assessment & Plan Chart Review Chart Review: Acceptable Risk for Surgery Consults Requested none History Surgery Operation Date: 12/14/24 16:30 Proposed Procedures p Colonoscopy EGD Dr. Sixto Henson MD Operation Date: 12/15/24 16:30 Proposed Procedures p Colonoscopy EGD Dr. Sixto Henson MD Height/Weight Height: 5 ft 8 in Weight: 92.8 kg Allergies Allergy/AdvReac Type Severity Reaction Status Date / Time montelukast AdvReac Severe Brain fog Verified 12/12/24 10:44 atorvastatin AdvReac Intermediate Muscle Verified 12/12/24 10:44 aches rosuvastatin AdvReac Intermediate Muscle Verified 12/12/24 10:44 aches spironolactone AdvReac Unknown Verified 12/14/24 08:33 tramadol AdvReac Fatigued Verified 12/12/24 10:44 Medications Home Medications Medication Instructions Recorded Confirmed Last Taken acetaminophen 650 mg 650 mg PO DIRECTED 10/30/23 12/12/24 10/28/23 tablet,extended release (Tylenol 8 Hour) diphenhydramine HCl 25 mg capsule 25 mg PO DIRECTED PRN 10/30/23 12/12/24 10/28/23 (Benadryl) APPOINTMENTS dabigatran etexilate 150 mg capsule 150 mg PO BID #180 caps 01/20/24 12/12/24 Unknown furosemide 40 mg tablet 40 mg PO BID 05/01/24 12/12/24 Unknown metoprolol succinate 50 mg 50 mg PO QAM #90 tabs 08/01/24 12/12/24 Unknown tablet,extended release 24 hr daratumumab 1,800 15 ml subcut MONTHLY 08/23/24 12/12/24 Unknown po-[id number] 30,000 unit/15 mL subcut soln (Darzalex Faspro) tadalafil 20 mg tablet 20 mg PO DAILY PRN sexual activity 10/05/24 12/12/24 Unknown #10 tabs acyclovir 400 mg tablet 400 mg PO BID 11/22/24 12/12/24 Unknown dapagliflozin propanediol 10 mg 10 mg PO QAM 11/22/24 12/12/24 Unknown tablet dexamethasone 4 mg tablet 20 mg PO DIRECTED 12/12/24 12/12/24 Unknown finasteride 5 mg tablet 5 mg PO DAILY 12/12/24 12/12/24 Unknown polysaccharide iron complex 150 mg 150 mg PO 3XWK 12/12/24 12/12/24 Unknown iron capsule Active Medications Generic Name Dose Route Start Last Admin Trade Name Kevan PRN Reason Stop Dose Admin Acyclovir 400 mg 12/12/24 21:53 12/14/24 20:51 Acyclovir 400 Mg Tab PO 01/11/25 21:52 400 mg BID URSZULA Administration Finasteride 5 mg 12/13/24 09:00 12/14/24 08:57 Finasteride 5 Mg Tab PO 01/12/25 08:59 5 mg DAILY URSZULA Administration Pantoprazole Sodium 40 mg in 10 mls @ 5 mls/min 12/12/24 21:53 12/15/24 13:13 Protonix IV 01/11/25 21:52 5 mls/min BID URSZULA Administration Metoprolol Succinate 50 mg 12/13/24 09:00 12/14/24 08:57 Metoprolol Succ 50mg Ext Rel Tab PO 01/12/25 08:59 50 mg QAM URSZULA Administration Polyethylene Glycol/Electrolytes 16 dose 12/13/24 16:00 12/14/24 16:41 Lavage Solution 4000ml PO 01/12/25 15:59 16 dose TODAY@1600 URSZULA Administration Polysaccharide Iron Complex 150 mg 12/13/24 09:00 12/13/24 09:10 Iron Polysaccharide Complex 150 Mg Capsule PO 01/12/25 08:59 150 mg MoWeFr@0900 URSZULA Administration NPO Date Last Intake of Fluids: 12/14/24 Time Last Intake of Fluids: 23:59 Date Last Intake of Solids: 12/10/24 Time Last Intake of Solids: 23:59 Past Medical History Medical History 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 Smalls Prediabetes Anemia Cardiac amyloidosis Degenerative arthritis BPH (benign prostatic hyperplasia) Maintenance chemotherapy First of every month CAD (coronary artery disease) CKD (chronic kidney disease) stage 3, GFR 30-59 ml/min Atrial fibrillation, permanent Follows with [facility] cardio Male erectile disorder of organic origin Traumatic wound Hx Right leg traumatic wound secondary to shrapnel in [place] Past Family History Family History Brother Hodgkin disease Diabetes Mother Ovarian cancer Father Heart disease Myocardial infarction Sister Breast cancer Grandfather Myocardial infarction Other No family history of adverse response to anesthesia Denies family history of Prostate cancer Colorectal cancer Pulmonary embolism Past Surgical History Surgical History History of total knee replacement R/L Hx of cardiac catheterization (11/04/22) Prior to amloidosis dx- no stents History of bone marrow biopsy History of biopsy of kidney History of tooth extraction S/P cataract extraction R/L Social History Smoking Status: Former smoker Smoking cigarettes per day: 1.5 packs a day. Do You Dip or Chew Tobacco: No Hx Alcohol Use: Yes Alcohol type: wine alcohol intake frequency: a few times a month Hx Substance Use: No substance use type: does not use Physical Exam Vital Signs Last Vital Signs Temp 36.1 C L 12/15/24 14:15 Pulse 85 12/15/24 14:15 Resp 18 12/15/24 14:15 BP 137/87 12/15/24 14:15 Pulse Ox 97 12/15/24 14:15 O2 Del Method Room Air 12/15/24 14:15 O2 Flow Rate 1 12/15/24 11:38 Testing Laboratory Results 12/15/24 07:37 12/15/24 07:37 PT 18.2 Seconds (9.0-12.0) H 12/12/24 11:36 INR 1.8 (0.9-1.1) H 12/12/24 11:36 APTT 41 Seconds (21-31) H 12/12/24 11:36 Urine Color Yellow 12/12/24 Unknown Urine Appearance Clear (Clear) 12/12/24 Unknown Urine pH 6.5 (4.5-7.5) 12/12/24 Unknown Ur Specific [place] 1.029 (1.000-1.030) 12/12/24 Unknown Urine Protein Negative (Negative) 12/12/24 Unknown Urine Glucose (UA) 2+ (Negative) H 12/12/24 Unknown Urine Ketones Negative (Negative) 12/12/24 Unknown Urine Nitrite Negative (Negative) 12/12/24 Unknown Ur Leukocyte Esterase Negative (Negative) 12/12/24 Unknown Blood Type A Negative 12/12/24 11:40 Antibody Screen POSITIVE A 12/12/24 11:40
--- NOTE | 2024-12-15 15:02 | GI REPORT ---
[facility] Patient: DOLORES MONTERO : 1945 Sex at : Male Age: 79 Years Procedure: Upper GI endoscopy Date: 12/15/2024 Attending Physician: Renny Henson MD Referring MD: Katie Croft Md Indications: - Suspected upper gastrointestinal bleeding Medications: - Monitored Anesthesia Care Complications: - No immediate complications. Procedure: - Prior to the procedure, a History and Physical was performed, and patient medications and allergies were reviewed. The patient's tolerance of previous anesthesia was also reviewed. The risks and benefits of the procedure and the sedation options and risks were discussed with the patient. All questions were answered, and informed consent was obtained. [Anticoagulant Agents] [Days Prior to Procedure]. [ASA Grade]. After reviewing the risks and benefits, the patient was deemed in satisfactory condition to undergo the procedure. - The egd scope was introduced through the mouth and advanced to the second part of the duodenum. - The upper GI endoscopy was accomplished without difficulty. - The patient tolerated the procedure well. Findings: - The examined esophagus was normal. - The entire examined stomach was normal. - The examined duodenum was normal. Impression: - Normal esophagus. - Normal stomach. - Normal examined duodenum. - No specimens collected. Recommendation: - Resume previous diet. - Patient has a contact number available for emergencies. The signs and symptoms of potential delayed complications were discussed with the patient. Return to normal activities tomorrow. Written discharge instructions were provided to the patient. Procedure Code(s): - 09648, Esophagogastroduodenoscopy, flexible, transoral; diagnostic, including collection of specimen(s) by brushing or washing, when performed (separate procedure) CPT(R) - 2023 copyright [employer]. All Rights Reserved. The CPT codes, CCI edits and ICD codes generated are intended as suggestions and were generated based on input data. These codes are preliminary and upon electric motor assembler and tester review may be revised to meet current compliance and payer requirements. The provider is responsible for the final determination of appropriate codes, and modifiers. Renny Henson MD This document has been electronically signed. Note Initiated:12/15/2024 Note Completed:12/15/2024 3:01 PM \\[email or web address]\Central\[email or web address]\Data\Provation\Results\LIVE\[id number]
--- NOTE | 2024-12-15 15:05 | Anesthesiology Progress Note ---
Date of Service December 15, 2024 Anesthesia Post Procedure Vital Signs Vital Signs: Temp Pulse Pulse Resp BP BP Pulse Ox 12/15/24 14:15 36.1 C L 85 18 137/87 97 12/15/24 11:38 36.6 C 82 16 117/74 97 12/15/24 10:08 36.6 C 80 16 116/75 96 12/15/24 09:53 36.5 C 78 16 109/69 100 12/15/24 09:53 36.7 C 83 16 112/71 99 12/15/24 09:32 36.4 C 83 16 103/62 98 12/15/24 07:52 36.4 C L 97 H 16 137/80 95 12/15/24 07:20 12/15/24 03:02 36.7 C 81 18 113/75 96 12/15/24 02:38 36.6 C 82 16 122/86 96 12/15/24 01:38 36.9 C 78 16 117/78 98 12/15/24 01:08 36.7 C 80 18 107/71 97 12/15/24 00:53 36.7 C 81 18 117/77 98 12/15/24 00:35 36.7 C 85 16 121/75 98 12/15/24 00:04 36.6 C 88 18 121/71 100 12/14/24 23:53 36.4 C L 88 16 124/77 95 12/14/24 22:53 36.6 C 87 18 114/76 97 12/14/24 22:23 36.6 C 101 H 18 131/89 97 12/14/24 22:08 36.6 C 87 20 119/73 96 12/14/24 21:42 36.7 C 89 20 112/71 100 12/14/24 20:55 O2 Del Method O2 Flow Rate 12/15/24 14:15 Room Air 12/15/24 11:38 1 12/15/24 10:08 1 12/15/24 09:53 1 12/15/24 09:53 1 12/15/24 09:32 1 12/15/24 07:52 Room Air 12/15/24 07:20 Nasal Cannula 1 12/15/24 03:02 1 12/15/24 02:38 1 12/15/24 01:38 1 12/15/24 01:08 1 12/15/24 00:53 1 12/15/24 00:35 1 12/15/24 00:04 1 12/14/24 23:53 1 12/14/24 22:53 1 12/14/24 22:23 1 12/14/24 22:08 1 12/14/24 21:42 2 12/14/24 20:55 Nasal Cannula 2 Pain Intensity Generalized: Pain Intensity: 0 Transfer of Care Handoff Completed per policy Notes Mental Status: alert / awake / arousable and participated in evaluation Patient Amnestic to Procedure: Yes Nausea / Vomiting: adequately controlled Pain: adequately controlled Airway Patency, RR, SpO2: stable & adequate BP & HR: stable & adequate Hydration State: stable & adequate Anesthetic Complications: no major complications apparent
--- NOTE | 2024-12-15 15:07 | GI REPORT ---
[facility] Patient: DOLORES MONTERO : 1945 Sex at : Male Age: 79 Years Procedure: Colonoscopy Date: 12/15/2024 Attending Physician: Renny Henson MD Referring MD: Katie Croft Md Indications: - Suspected GI bleed Medications: - Monitored Anesthesia Care Complications: - No immediate complications. Procedure: - Prior to the procedure, a History and Physical was performed, and patient medications and allergies were reviewed. The patient's tolerance of previous anesthesia was also reviewed. The risks and benefits of the procedure and the sedation options and risks were discussed with the patient. All questions were answered, and informed consent was obtained. [Anticoagulant Agents] [Days Prior to Procedure]. [ASA Grade]. After reviewing the risks and benefits, the patient was deemed in satisfactory condition to undergo the procedure. - The adult colonoscope was introduced through the anus and advanced to the terminal ileum, with identification of the appendiceal orifice and ileocecal valve. - The colonoscopy was performed without difficulty. - The patient tolerated the procedure well. - The quality of the bowel preparation was fair. - [Anatomical Structures] photographed. Findings: - Many diverticula were found in the sigmoid colon. - Dark brown-black fluid was found in the rectum, in the sigmoid colon and in the descending colon. Possibly secondary to iron medication less likely blood. - The terminal ileum appeared normal. Impression: - Preparation of the colon was fair. - Diverticulosis in the sigmoid colon. - Brown-black fluid in the rectum, in the sigmoid colon and in the descending colon. - The examined portion of the ileum was normal. - No specimens collected. Recommendation: - Resume previous diet. - Consider small bowel endoscopy - Patient has a contact number available for emergencies. The signs and symptoms of potential delayed complications were discussed with the patient. Return to normal activities tomorrow. Written discharge instructions were provided to the patient. Procedure Code(s): - 23362, Colonoscopy, flexible; diagnostic, including collection of specimen(s) by brushing or washing, when performed (separate procedure) Diagnosis Code(s): - K62.5, Hemorrhage of anus and rectum - K92.2, Gastrointestinal hemorrhage, unspecified - K57.30, Diverticulosis of large intestine without perforation or abscess without bleeding CPT(R) - 2023 copyright [employer]. All Rights Reserved. The CPT codes, CCI edits and ICD codes generated are intended as suggestions and were generated based on input data. These codes are preliminary and upon pr internship review may be revised to meet current compliance and payer requirements. The provider is responsible for the final determination of appropriate codes, and modifiers. Renny Henson MD This document has been electronically signed. Note Initiated:12/15/2024 Note Completed:12/15/2024 3:06 PM \\[email or web address]\Central\InterfaceData\Data\Provation\Results\LIVE\[id number]
[2024-12-15] MEDS: PROPOFOL IV EMULSION 10 MG/ML 20 ML VIAL IV ONE (15:51)
[2024-12-15] MEDS: LIDOCAINE 2% 2 ML VIAL/AMP(20MG/ML) INFIL ONE (16:07)
[2024-12-15] MEDS: IRON SUCROSE 300 MG in SODIUM CHLORIDE 0.9% 250 ML IV ONE (17:06)
[2024-12-15 17:26] LABS: Hematocrit (blood only) 26.4 % (42.0-52.0); Hemoglobin 8.6 g/dl (14.0-18.0)
[2024-12-15] MEDS: CYANOCOBALAMIN (B-12) 500 MCG TABLET PO SCH (20:38)
[2024-12-16 06:51] LABS: Hematocrit (blood only) 23.4 % (42.0-52.0); Hemoglobin 7.8 g/dl (14.0-18.0); Mean Corpuscular Hemoglobin 31.0 pg (25.0-34.0); Mean Corpuscular Volume 92.9 fL (80.0-100.0); Platelet Count 237 K/uL (130-400); RDW Standard Deviation 52.4 fL (36.4-46.3); Red Blood Count 2.52 M/uL (4.70-6.10); White Blood Count 4.97 K/ul (4.8-10.8)
[2024-12-16 07:12] LABS: Anion Gap 7.0 (3-11); Blood Urea Nitrogen 28.0 mg/dl (6-23); Calcium 7.9 mg/dl (8.6-10.3); Carbon Dioxide 27.0 mmol/L (21-32); Chloride 103.0 mmol/L (98-107); Creatinine Clr Calc Pharmacy 52.9 ml/min; Glucose 98.0 mg/dl (70-99(Fasting)); Potassium 3.3 mmol/L (3.5-5.1); Sodium 137.0 mmol/L (136-145)
[2024-12-16] MEDS: IRON SUCROSE 300 MG in SODIUM CHLORIDE 0.9% 250 ML IV SCH (08:35)
--- NOTE | 2024-12-16 14:39 | Hospitalist Progress Note ---
Date of Service December 16, 2024 Assessment & Plan (1) Atrial fibrillation: (2) [place] amyloidosis: (3) Bloody stool: Plan Patient is a pleasant 79 year old male with history of a.fib and amyloidosis who presented into the hospital on 12/12 with episodes of syncope and dyspnea, along with bloody stools. Patient reports his stools were dark in color. Bloody Stool/A.Fib -On 12/12, patient's Hgb was 5.4 L. Was given 7 units of blood over the course of his stay and on 12/15 Hgb went back up to 8.6. However, on 12/16, Hgb went down to 7.8. -Patient is currently asymptomatic and is hemodynamically stable. -Continue Iron sucrose 300mg in Sodium Chloride -GI was consulted. -Colonoscopy showed: Impression: - Preparation of the colon was fair. - Diverticulosis in the sigmoid colon. - Brown-black fluid in the rectum, in the sigmoid colon and in the descending colon. (though stated its most likely due to iron medication) - The examined portion of the ileum was normal. - No specimens collected. -EGD was also done and was unremarkable. Most likely bleed is from small bowel that was worsened with use of dabigatran etexilate. Will speak to patient about risks/benefits of continued use or discontinuing the medication with bleeding vs. stroke from A.fib. -Ordered hemoglobin for this afternoon and tomorrow morning. -Will continue to monitor for any blood loss. Hypokalemia -Potassium was 3.3 this morning. Ordered 20meq of potassium PO. Ordered potassium recheck in Q4 hours. -Will continue to monitor. Admission and Anticipated Discharge Date Admission Date: December 12, 2024 Supervising Physician Co-Signing Physician Notes I personally examined the patient and verified all atkinson points of history and exam, discussed case, and agree with decision making with Dr Ferreira feeling okay. No notable bleeding. Extensive discussion with patient and family. Vitals noted, in general he is awake and alert pleasant no distress. HEENT normocephalic atraumatic mucous membranes moist. Breathing unlabored no accessory muscle use good effort. Skin without rashes pallor or icterus. Neuro without focal deficits. Severe acute blood loss anemia requiring 7 units of transfusionmost likely small bowel bleeding in the setting of chronic anticoagulation for atrial fibrillationfortunately it appears the bleeding has stopped. Continue to follow. Continue to hold anticoagulation. Capsule endoscopy as an outpatient. Long-term, could consider cautious resumption of anticoagulation or even partial dose anticoagulation to strike the balance between bleeding and stroke risk, but right now rather obviously will need to be protecting him from what had just happenedgiven the catastrophic nature of his profound anemia/GI bleeding. Continue to replace iron and B12. otehrwise as above Subjective Patient is a pleasant 79 yo M with history of amyloidosis being treated with chemo presented into the hospital with dark stools. Is in no acute distress and is feeling better. Reports that he is started on solids. When asked if he had bloody stools today, reproted that he has not had not eaten solid foods yet so is not sure if he has had one yet. Denies fever/chills, shortness of breath, and abdominal pain. Review of Systems Review of Systems: as per subjective HPI Physical Exam Constitutional: WD/WN, vitals as above Eyes: + anicteric sclerae and EOM intact bilat erally Neck: normal visual inspection Respiratory: normal respiratory effort, lungs clear to auscultation Cardiovascular: Rate/Rhythm: + irregularly irregular Skin: no rashes, warm and dry Psychiatric: Eye Contact: good eye contact Speech: normal rate/rhythm/volume of speech Thought Process: goal directed thought process and linear/logical thought process Results & Data Results & Data Vital Signs (Past 12 Hours) Vital Signs Temp Pulse Resp BP BP Pulse Ox O2 Del Method 12/16/24 10:12 36.8 C 80 17 103/65 95 Room Air 12/16/24 09:07 36.6 C 83 17 106/62 97 Room Air 12/16/24 08:30 36.7 C 80 17 108/67 95 Room Air 12/16/24 07:38 36.7 C 94 H 16 111/63 92 Room Air Laboratory Results Lab Results 12/12/24 12/12/24 12/12/24 Range/Units 11:36 11:40 11:42 WBC 11.12 H (4.8-10.8) K/ul RBC 1.74 L (4.70-6.10) M/uL Hgb 5.2 L* (14.0-18.0) g/dl POC Hgb 5.4 L* (14.0-18.0) g/dl Hct 17.1 L* (42.0-52.0) % POC Hct 16 L* (42-52) % MCV 98.3 (80.0-100.0) fL MCH 29.9 (25.0-34.0) pg MCHC 30.4 L (32.0-36.0) g/dL RDW Std Deviation 62.4 H (36.4-46.3) fL RDW Coeff of Andre 19.5 H (11.5-14.5) % Plt Count 308 (130-400) K/uL MPV 10.7 (9.4-12.4) fL Immature Gran % (Auto) 1.0 % Neut % (Auto) 70.4 % Lymph % (Auto) 17.9 % Meagher % (Auto) 10.4 % Eos % (Auto) 0.1 % Baso % (Auto) 0.2 % Neut # (Auto) 7.83 H (1.40-6.50) K/uL Lymph # (Auto) 1.99 (1.20-3.40) K/uL Meagher # (Auto) 1.16 H (0.11-0.59) K/uL Eos # (Auto) 0.01 (0.00-0.50) K/uL Baso # (Auto) 0.02 (0.00-0.20) K/uL Immature Gran # (Auto) 0.11 (0.01-0.20) K/uL Absolute Nucleated RBC (0.00-0.12) K/uL Nucleated RBC % (auto) % Polychromasia 2+ Poikilocytosis Anisocytosis Present Microcytosis Tear Drop Cells 1+ Ovalocytes PT 18.2 H (9.0-12.0) Seconds INR 1.8 H (0.9-1.1) APTT 41 H (21-31) Seconds PTT Ratio 1.5 POC Sodium 134 L (135-144) mmol/L Sodium 135 L (136-145) mmol/L POC Potassium 3.5 (3.3-5.0) mmol/L Potassium 3.6 (3.5-5.1) mmol/L POC Chloride 96 L (101-112) mmol/L Chloride 99 (98-107) mmol/L Carbon Dioxide 24 (21-32) mmol/L POC Total CO2 22 L (24-31) mmol/L Anion Gap 12 H (3-11) POC Anion Gap 21.0 (16-25) mmol/L POC BUN 44 H (7-18) mg/dl BUN 50 H (6-23) mg/dl Creatinine 1.22 (0.6-1.4) mg/dl POC Creatinine 1.4 H (0.6-1.3) mg/dl Est Cr Clr Drug Dosing 52.6 ml/min eGFR 59.56 BUN/Creatinine Ratio 41.0 H (10-20) Glucose 155 H (70-99(Fasting)) mg/dl POC Glucose (other) 153 H (70-99) mg/dl Calcium 8.4 L (8.6-10.3) mg/dl POC Ioniz Calcium Boyd 1.07 L (1.12-1.32) mmol/l Phosphorus 3.7 (2.5-4.9) mg/dl Magnesium 2.3 (1.7-2.4) mg/dl Iron 46 (35-175) mcg/dl TIBC (250-450) mcg/dl Transferrin (200-360) mg/dl Transferrin % Sat (20-50) % Ferritin (8-388) ng/ml Total Bilirubin 1.1 H (0.2-1.0) mg/dl AST 20 (13-39) U/L ALT 16 (7-52) U/L Alkaline Phosphatase 78 (34-104) U/L Total Creatine Kinase 347 H (30-223) U/L Troponin I High Sens 68.7 H* (0-20) pg/ml Total Protein 5.3 L (6.0-8.3) gm/dl Albumin 3.5 (3.4-5.0) gm/dl Globulin 1.8 L (2.5-4.0) gm/dl Albumin/Globulin Ratio 1.9 (0.9-2) Lipase 33 (11-82) U/L Vitamin B12 (180-914) pg/ml Folate (>5.38) ng/ml TSH 2.790 (0.300-4.500) uIu/ml Urine Color Urine Appearance (Clear) Urine pH (4.5-7.5) Ur Specific [place] (1.000-1.030) Urine Protein (Negative) Urine Glucose (UA) (Negative) Urine Ketones (Negative) Urine Blood (Negative) Urine Nitrite (Negative) Urine Bilirubin (Negative) Urine Urobilinogen (Negative) Ur Leukocyte Esterase (Negative) Urine Comment Blood Type A Negative Antibody Screen POSITIVE A Antibody Identification Panagglutinin due to drug Antibody ID Comment Cancelled Crossmatch See Detail 12/12/24 12/12/24 12/13/24 Range/Units 13:55 Unknown 08:06 WBC 8.03 (4.8-10.8) K/ul RBC 1.95 L (4.70-6.10) M/uL Hgb 5.8 L* (14.0-18.0) g/dl POC Hgb (14.0-18.0) g/dl Hct 18.4 L* (42.0-52.0) % POC Hct (42-52) % MCV 94.4 (80.0-100.0) fL MCH 29.7 (25.0-34.0) pg MCHC 31.5 L (32.0-36.0) g/dL RDW Std Deviation 56.2 H (36.4-46.3) fL RDW Coeff of Andre 18.4 H (11.5-14.5) % Plt Count 230 (130-400) K/uL MPV 10.3 (9.4-12.4) fL Immature Gran % (Auto) 0.7 % Neut % (Auto) 73.6 % Lymph % (Auto) 13.8 % Meagher % (Auto) 11.7 % Eos % (Auto) 0.1 % Baso % (Auto) 0.1 % Neut # (Auto) 5.90 (1.40-6.50) K/uL Lymph # (Auto) 1.11 L (1.20-3.40) K/uL Meagher # (Auto) 0.94 H (0.11-0.59) K/uL Eos # (Auto) 0.01 (0.00-0.50) K/uL Baso # (Auto) 0.01 (0.00-0.20) K/uL Immature Gran # (Auto) 0.06 (0.01-0.20) K/uL Absolute Nucleated RBC (0.00-0.12) K/uL Nucleated RBC % (auto) % Polychromasia 3+ Poikilocytosis Anisocytosis Microcytosis Present Tear Drop Cells Ovalocytes PT (9.0-12.0) Seconds INR (0.9-1.1) APTT (21-31) Seconds PTT Ratio POC Sodium (135-144) mmol/L Sodium (136-145) mmol/L POC Potassium (3.3-5.0) mmol/L Potassium (3.5-5.1) mmol/L POC Chloride (101-112) mmol/L Chloride (98-107) mmol/L Carbon Dioxide (21-32) mmol/L POC Total CO2 (24-31) mmol/L Anion Gap (3-11) POC Anion Gap (16-25) mmol/L POC BUN (7-18) mg/dl BUN (6-23) mg/dl Creatinine (0.6-1.4) mg/dl POC Creatinine (0.6-1.3) mg/dl Est Cr Clr Drug Dosing ml/min eGFR BUN/Creatinine Ratio (10-20) Glucose (70-99(Fasting)) mg/dl POC Glucose (other) (70-99) mg/dl Calcium (8.6-10.3) mg/dl POC Ioniz Calcium Boyd (1.12-1.32) mmol/l Phosphorus (2.5-4.9) mg/dl Magnesium (1.7-2.4) mg/dl Iron (35-175) mcg/dl TIBC (250-450) mcg/dl Transferrin (200-360) mg/dl Transferrin % Sat (20-50) % Ferritin (8-388) ng/ml Total Bilirubin (0.2-1.0) mg/dl AST (13-39) U/L ALT (7-52) U/L Alkaline Phosphatase (34-104) U/L Total Creatine Kinase (30-223) U/L Troponin I High Sens 69.6 H* (0-20) pg/ml Total Protein (6.0-8.3) gm/dl Albumin (3.4-5.0) gm/dl Globulin (2.5-4.0) gm/dl Albumin/Globulin Ratio (0.9-2) Lipase (11-82) U/L Vitamin B12 (180-914) pg/ml Folate (>5.38) ng/ml TSH (0.300-4.500) uIu/ml Urine Color Yellow Urine Appearance Clear (Clear) Urine pH 6.5 (4.5-7.5) Ur Specific [place] 1.029 (1.000-1.030) Urine Protein Negative (Negative) Urine Glucose (UA) 2+ H (Negative) Urine Ketones Negative (Negative) Urine Blood Negative (Negative) Urine Nitrite Negative (Negative) Urine Bilirubin Negative (Negative) Urine Urobilinogen Negative (Negative) Ur Leukocyte Esterase Negative (Negative) Urine Comment Blood Type Antibody Screen Antibody Identification Antibody ID Comment Crossmatch 12/13/24 12/13/24 12/14/24 Range/Units 16:11 16:15 07:14 WBC 8.74 7.18 (4.8-10.8) K/ul RBC 2.44 L 1.98 L (4.70-6.10) M/uL Hgb 7.5 L 6.1 L* (14.0-18.0) g/dl POC Hgb (14.0-18.0) g/dl Hct 22.5 L 18.5 L* (42.0-52.0) % POC Hct (42-52) % MCV 92.2 93.4 (80.0-100.0) fL MCH 30.7 30.8 (25.0-34.0) pg MCHC 33.3 33.0 (32.0-36.0) g/dL RDW Std Deviation 52.0 H 53.6 H (36.4-46.3) fL RDW Coeff of Andre 17.4 H 17.7 H (11.5-14.5) % Plt Count 234 209 (130-400) K/uL MPV 10.6 10.5 (9.4-12.4) fL Immature Gran % (Auto) 0.9 0.8 % Neut % (Auto) 69.9 71.0 % Lymph % (Auto) 14.3 12.8 % Meagher % (Auto) 14.4 14.5 % Eos % (Auto) 0.3 0.6 % Baso % (Auto) 0.2 0.3 % Neut # (Auto) 6.10 5.10 (1.40-6.50) K/uL Lymph # (Auto) 1.25 0.92 L (1.20-3.40) K/uL Meagher # (Auto) 1.26 H 1.04 H (0.11-0.59) K/uL Eos # (Auto) 0.03 0.04 (0.00-0.50) K/uL Baso # (Auto) 0.02 0.02 (0.00-0.20) K/uL Immature Gran # (Auto) 0.08 0.06 (0.01-0.20) K/uL Absolute Nucleated RBC 0.03 0.02 (0.00-0.12) K/uL Nucleated RBC % (auto) 0.3 0.3 % Polychromasia 1+ 1+ Poikilocytosis Present Anisocytosis Microcytosis Tear Drop Cells Ovalocytes 1+ PT (9.0-12.0) Seconds INR (0.9-1.1) APTT (21-31) Seconds PTT Ratio POC Sodium (135-144) mmol/L Sodium 141 (136-145) mmol/L POC Potassium (3.3-5.0) mmol/L Potassium 3.7 (3.5-5.1) mmol/L POC Chloride (101-112) mmol/L Chloride 105 (98-107) mmol/L Carbon Dioxide 31 (21-32) mmol/L POC Total CO2 (24-31) mmol/L Anion Gap 5 (3-11) POC Anion Gap (16-25) mmol/L POC BUN (7-18) mg/dl BUN 50 H (6-23) mg/dl Creatinine 1.30 (0.6-1.4) mg/dl POC Creatinine (0.6-1.3) mg/dl Est Cr Clr Drug Dosing 49.3 ml/min eGFR 55.19 BUN/Creatinine Ratio 38.5 H (10-20) Glucose 130 H (70-99(Fasting)) mg/dl POC Glucose (other) (70-99) mg/dl Calcium 7.9 L (8.6-10.3) mg/dl POC Ioniz Calcium Boyd (1.12-1.32) mmol/l Phosphorus (2.5-4.9) mg/dl Magnesium 2.2 (1.7-2.4) mg/dl Iron 123 (35-175) mcg/dl TIBC 375 (250-450) mcg/dl Transferrin 268 (200-360) mg/dl Transferrin % Sat 33 (20-50) % Ferritin 36.6 (8-388) ng/ml Total Bilirubin 1.3 H (0.2-1.0) mg/dl AST 15 (13-39) U/L ALT 12 (7-52) U/L Alkaline Phosphatase 59 (34-104) U/L Total Creatine Kinase (30-223) U/L Troponin I High Sens (0-20) pg/ml Total Protein 4.2 L D (6.0-8.3) gm/dl Albumin 2.8 L (3.4-5.0) gm/dl Globulin 1.4 L (2.5-4.0) gm/dl Albumin/Globulin Ratio 2.0 (0.9-2) Lipase (11-82) U/L Vitamin B12 266 (180-914) pg/ml Folate 10.39 (>5.38) ng/ml TSH (0.300-4.500) uIu/ml Urine Color Urine Appearance (Clear) Urine pH (4.5-7.5) Ur Specific [place] (1.000-1.030) Urine Protein (Negative) Urine Glucose (UA) (Negative) Urine Ketones (Negative) Urine Blood (Negative) Urine Nitrite (Negative) Urine Bilirubin (Negative) Urine Urobilinogen (Negative) Ur Leukocyte Esterase (Negative) Urine Comment Blood Type Antibody Screen Antibody Identification Antibody ID Comment Crossmatch 12/15/24 12/15/24 12/16/24 Range/Units 07:37 16:32 05:59 WBC 5.68 4.97 (4.8-10.8) K/ul RBC 2.25 L 2.52 L (4.70-6.10) M/uL Hgb 7.0 L 8.6 L 7.8 L (14.0-18.0) g/dl POC Hgb (14.0-18.0) g/dl Hct 20.8 L* 26.4 L 23.4 L (42.0-52.0) % POC Hct (42-52) % MCV 92.4 92.9 (80.0-100.0) fL MCH 31.1 31.0 (25.0-34.0) pg MCHC 33.7 33.3 (32.0-36.0) g/dL RDW Std Deviation 50.8 H 52.4 H (36.4-46.3) fL RDW Coeff of Andre 17.2 H 17.9 H (11.5-14.5) % Plt Count 216 237 (130-400) K/uL MPV 10.4 10.6 (9.4-12.4) fL Immature Gran % (Auto) 0.7 % Neut % (Auto) 65.1 % Lymph % (Auto) 17.1 % Meagher % (Auto) 15.7 % Eos % (Auto) 1.2 % Baso % (Auto) 0.2 % Neut # (Auto) 3.70 (1.40-6.50) K/uL Lymph # (Auto) 0.97 L (1.20-3.40) K/uL Meagher # (Auto) 0.89 H (0.11-0.59) K/uL Eos # (Auto) 0.07 (0.00-0.50) K/uL Baso # (Auto) 0.01 (0.00-0.20) K/uL Immature Gran # (Auto) 0.04 (0.01-0.20) K/uL Absolute Nucleated RBC 0.02 (0.00-0.12) K/uL Nucleated RBC % (auto) 0.4 % Polychromasia 1+ Poikilocytosis Anisocytosis Present Microcytosis Tear Drop Cells Ovalocytes PT (9.0-12.0) Seconds INR (0.9-1.1) APTT (21-31) Seconds PTT Ratio POC Sodium (135-144) mmol/L Sodium 139 137 (136-145) mmol/L POC Potassium (3.3-5.0) mmol/L Potassium 3.5 3.3 L (3.5-5.1) mmol/L POC Chloride (101-112) mmol/L Chloride 103 103 (98-107) mmol/L Carbon Dioxide 29 27 (21-32) mmol/L POC Total CO2 (24-31) mmol/L Anion Gap 7 7 (3-11) POC Anion Gap (16-25) mmol/L POC BUN (7-18) mg/dl BUN 36 H 28 H (6-23) mg/dl Creatinine 1.09 1.21 (0.6-1.4) mg/dl POC Creatinine (0.6-1.3) mg/dl Est Cr Clr Drug Dosing 58.8 52.9 ml/min eGFR 68.18 60.15 BUN/Creatinine Ratio 33.0 H 23.1 H (10-20) Glucose 115 H 98 (70-99(Fasting)) mg/dl POC Glucose (other) (70-99) mg/dl Calcium 7.9 L 7.9 L (8.6-10.3) mg/dl POC Ioniz Calcium Boyd (1.12-1.32) mmol/l Phosphorus (2.5-4.9) mg/dl Magnesium (1.7-2.4) mg/dl Iron (35-175) mcg/dl TIBC (250-450) mcg/dl Transferrin (200-360) mg/dl Transferrin % Sat (20-50) % Ferritin (8-388) ng/ml Total Bilirubin (0.2-1.0) mg/dl AST (13-39) U/L ALT (7-52) U/L Alkaline Phosphatase (34-104) U/L Total Creatine Kinase (30-223) U/L Troponin I High Sens (0-20) pg/ml Total Protein (6.0-8.3) gm/dl Albumin (3.4-5.0) gm/dl Globulin (2.5-4.0) gm/dl Albumin/Globulin Ratio (0.9-2) Lipase (11-82) U/L Vitamin B12 (180-914) pg/ml Folate (>5.38) ng/ml TSH (0.300-4.500) uIu/ml Urine Color Urine Appearance (Clear) Urine pH (4.5-7.5) Ur Specific [place] (1.000-1.030) Urine Protein (Negative) Urine Glucose (UA) (Negative) Urine Ketones (Negative) Urine Blood (Negative) Urine Nitrite (Negative) Urine Bilirubin (Negative) Urine Urobilinogen (Negative) Ur Leukocyte Esterase (Negative) Urine Comment Blood Type Antibody Screen Antibody Identification Antibody ID Comment Crossmatch Diagnostic Findings Chest X-Ray 12/12/24 11:47 XR chest 1V portable CLINICAL HISTORY: Trauma COMPARISON STUDY: 10/19/2024 FINDINGS: There is moderate cardiomegaly without pulmonary vascular congestion. No consolidation or pleural effusion seen. No pneumothorax. Stable old rib fractures. IMPRESSION: No acute findings seen. ACT 112: Negative or not required by law. Electronically signed by: Yuriy Kulkarni M.D. 12/12/2024 12:[address] 12/12/24 11:52 CT SCAN OF THE CERVICAL SPINE CLINICAL HISTORY: Trauma. COMPARISON STUDY: None TECHNIQUE: CT scan of the cervical spine is performed from the skull base to the upper thoracic spine. Images are reviewed in the axial, sagittal, and coronal planes. IV contrast was not administered for this examination. A dose lowering technique was utilized adhering to the principles of ALARA. CT DOSE: 3539.11 mGy.cm FINDINGS: Skeletal structures: There is no evidence of fracture or subluxation involving the cervical spine. Vertebral body height and alignment are maintained. The odontoid process and lateral masses are intact. The atlantoaxial articulation is preserved. The spinous processes appear intact. There is severe multilevel facet arthrosis and disc space narrowing within the cervical spine with moderate endplate osteophytosis. Soft tissues: The prevertebral and paraspinous soft tissues are within normal limits. Calvarium: The visualized calvarium at the skull base appears intact. Brain parenchyma: Partially visualized brain parenchyma at the skull base is within normal limits. Lung apices: A right pleural effusion is better depicted on the chest CT which will be reported separately. IMPRESSION: No acute cervical spine fracture or subluxation. ACT 112: Negative or not required by law. Electronically signed by: Torey Baig M.D. 12/12/2024 12:[address] 12/12/24 11:52 CT head/brain wo con CLINICAL HISTORY: 79 years-old Male with fall, n/v. Acute head trauma status post fall TECHNIQUE: Multiple axial CT images of the head were obtained without contrast. A dose lowering technique was utilized adhering to the principles of ALARA. COMPARISON: None. FINDINGS: No acute intracranial hemorrhage, midline shift, intracranial mass, hydrocephalus, territorial ischemia or abnormal extra-axial collection. I nvolutional changes with white matter hypodensities suggestive of chronic microvascular ischemic disease. Calcifications are seen involving the falx cerebri. The calvarium is intact. The paranasal sinuses, mastoid air cells, and middle ear cavities are clear. IMPRESSION: No acute intracranial abnormality or calvarial fracture. ACT 112: Negative or not required by law. The above report was generated using voice recognition software. It may contain grammatical, syntax or spelling errors. Electronically signed by: Wilfredo Baker M.D. 12/12/2024 12:36 PM Abdomen/Pelvis CT 12/12/24 11:55 CT SCAN OF THE ABDOMEN AND PELVIS WITH IV CONTRAST CLINICAL HISTORY: Trauma. COMPARISON STUDY: CT of the abdomen and pelvis October 20, 2024. TECHNIQUE: Following the IV administration of 94 cc of Optiray 320, CT scan of the abdomen and pelvis is performed from the lung bases to the proximal femora. Images are reviewed in the axial, sagittal, and coronal planes. IV contrast was administered without complication. A dose lowering technique was utilized adhering to the principles of ALARA. FINDINGS: Small right and trace left pleural effusions have decreased in size since CT of October 20, 2024. Interlobular septal thickening within the lower lungs is present. These are better depicted on the chest CT which will be reported separately. There are multiple old bilateral lower rib fractures. No hemoperitoneum or pneumoperitoneum is present. Nodularity of the liver surface suggests cirrhosis. There are no hepatic lesions. There is no biliary or pancreatic ductal dilatation. There is no evidence for traumatic injury to the liver, spleen, adrenal glands, kidneys or pancreas. Anasarca is noted with body wall edema. No evidence for a bowel obstruction. The appendix is normal. There is sigmoid diverticulosis without evidence for acute diverticulitis. No lymphadenopathy. No fluid collections are present. There are no acute fractures within the lumbar spine, pelvis or hips. IMPRESSION: 1. No acute traumatic findings within the abdomen or pelvis. 2. Small right and trace left pleural effusions, decreased since CT of October 20, 2024. Evidence for volume overload with interstitial pulmonary edema and anasarca. 3. Nodularity of the liver surface suggestive of cirrhosis. No hepatic lesions. ACT 112: Negative or not required by law. Electronically signed by: Torey Baig M.D. 12/12/2024 12:[address] 12/12/24 11:[address] WITH CONTRAST HISTORY: Acute chest trauma status post fall fall, anemia TECHNIQUE: Multiaxial CT images of the chest were performed following the IV administration of 94 cc of Optiray. A dose lowering technique was utilized adhering to the principles of ALARA. COMPARISON: CT abdomen and pelvis of same day, chest CT 10/20/2024 FINDINGS: Unremarkable thyroid. There are a few borderline enlarged mediastinal lymph nodes which are unchanged and nonspecific. Heart is upper limits of normal in size. Moderate coronary artery calcifications. There is atherosclerosis of the aorta without aneurysm. Patency of the imaged great vessels. Unremarkable pulmonary artery. Small right and trace left pleural effusions are similar to mildly decreased from prior. No pneumothorax. Intralobular septal thickening with mild dependent subsegmental atelectasis. Stable 4 mm solid nodule in the right upper lobe on image 51. There are no suspicious pulmonary nodules or masses identified. Central airways are patent. CT abdomen and pelvis dictated separately. Anasarca persists. Probable cirrhosis. Mild nonspecific wall thickening of the esophagus. Degenerative changes of the shoulders and spine. There are a few subacute chronic bilateral rib fractures again noted. No definite acute fracture identified. IMPRESSION: 1. No acute posttraumatic intrathoracic abnormality identified. 2. No acute fracture or pneumothorax. 3. Interstitial pulmonary edema with right greater than left pleural effusions and anasarca redemonstrated. 4. CT abdomen and pelvis dictated separately. ACT 112: Negative or not required by law. Electronically signed by: Wilfredo Baker M.D. 12/12/2024 12:48 PM (1) Atrial fibrillation Atrial fibrillation type: unspecified Qualified Code(s): I48.91 - Unspecified atrial fibrillation
[2024-12-16] MEDS: POTASSIUM CHLORIDE CRTAB 20 MEQ TABCR PO STA (16:03)
--- NOTE | 2024-12-16 17:40 | Billing Data ---
Date of Service December 16, 2024 Coding Level of Care Code 65319 SUB INP/OBS CARE
[2024-12-17 10:57] VITALS: BP 119/71; TEMP 98.2
[2024-12-17 12:35] VITALS: PULSE 107; RESP 20; O2SAT 91
--- NOTE | 2024-12-17 14:42 | Discharge Summary ---
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 in the ER, Hgb noted to be 5.2; patient states that he's been having a work-up for the anemia as an outpatient; he was told by his hem/onc doctor that he needed an EGD/colonoscopy for further eval. He has not gotten this done recently. Admission Exam Per Admitting Provider VITALS: Reviewed. WEIGHT/BMI reviewed. GEN: Healthy appearing, well-developed, NAD. PSYCH: Good Judgment. AOx3. Normal memory, mood, and affect. HEENT -Head: NC/AT; -Eyes: PERRL, EOMI. No discharge or redness; -Ears: External ears are normal. Normal TMs. -Nose: Normal nares. -Mouth and throat: MMM. Normal gums, mucosa, palate,. Good dentition. NECK: Supple, with no masses. CV: RRR, no m/r/g. LUNGS: CTAB, no w/r/c. ABD: Soft, NT/ND, NBS, no masses or organomegaly. : N/A SKIN: Warm, well perfused. No skin rashes or abnormal lesions. MSK: No deformities, Normal gait. EXT: No clubbing, cyanosis, or edema. NEURO: Ambulating with no limitations. Normal muscle strength and tone. No focal deficits. Principal Diagnosis Anemia secondary to GI bleed Discharge Exam Constitutional WD/WN, vitals as above Eyes + anicteric sclerae and EOM intact bilaterally Neck normal visual inspection Respiratory normal respiratory effort, lungs clear to auscultation Cardiovascular Rate/Rhythm: + irregularly irregular Skin no rashes, warm and dry Psychiatric Eye Contact: good eye contact Speech: normal rate/rhythm/volume of speech Thought Process: goal directed thought process and linear/logical thought process Discharge Data Allergies Allergy/AdvReac Type Severity Reaction Status Date / Time montelukast AdvReac Severe Brain fog Verified 12/12/24 10:44 atorvastatin AdvReac Intermediate Muscle Verified 12/12/24 10:44 aches rosuvastatin AdvReac Intermediate Muscle Verified 12/12/24 10:44 aches spironolactone AdvReac Unknown Verified 12/14/24 08:33 tramadol AdvReac Fatigued Verified 12/12/24 10:44 Consultations 12/12/24 15:17 ED Decision to Admit Stat 12/12/24 18:38 Consult Gastroenterology Routine 12/13/24 09:41 Consult Oncology Routine Procedures Performed Operation Date: 12/15/24 16:30 Actual Procedures p Esophagogastroduodenoscopy - Renny Henson MD s Colonoscopy - Renny Henson MD Ordered Studies 12/12/24 11:52 CT cervical spine wo con Stat CT head/brain wo con Stat 12/12/24 11:55 CT abd pelvis IV con only Stat CT chest diagnostic w con Stat Hospital Course (1) Atrial fibrillation: (2) AL amyloidosis: (3) Bloody stool: Plan Patient is a pleasant 79 year old male with history of a.fib and amyloidosis who presented into the hospital on 12/12 with episodes of syncope and dyspnea, along with bloody stools. Patient reports his stools were dark in color. Bloody Stool/A.Fib -On 12/12, patient's Hgb was 5.4 L. Was given 7 units of blood over the course of his stay and on 12/15 Hgb went back up to 8.6. However, on 12/16, Hgb went down to 7.8. -In the afternoon of 12/16 Hgb went back up to 8.4 and the Hgb on 12/17 was also 8.4. -Patient is currently asymptomatic and is hemodynamically stable. -Gave Iron sucrose 300mg in Sodium Chloride. -GI was consulted. -Colonoscopy showed: Impression: - Preparation of the colon was fair. - Diverticulosis in the sigmoid colon. - Brown-black fluid in the rectum, in the sigmoid colon and in the descending colon. (though stated its most likely due to iron medication) - The examined portion of the ileum was normal. - No specimens collected. -EGD was also done and was unremarkable. Most likely bleed is from small bowel that was worsened with use of dabigatran etexilate. Will speak to patient about risks/benefits of continued use or discontinuing the medication with bleeding vs. stroke from A.fib. -Upon discharge, * continue Vit. B12 supplementation. Recheck B12 levels in 3 months. * Also discontinued oral iron. Reasoning was we already gave patient a lot of oral iron so not too worried about iron stores immediately. Did not want to confound future stool studies due to iron giving those tests a false positive and wouldn't be sure if patient is truly bleeding. Recheck ferritin stores in 3 months and if needed, give IV iron. * Discontinued dabigatran etexilate due to heavy blood loss. Hypokalemia -Potassium was 3.3 on 12/16. Ordered 20meq of potassium PO. On Potassium recheck it was 3.5. Total Time Total Time Spent Total Time Spent (In Minutes): <30 Discharge Plan Discharge Items Patient Disposition: Home - Self-Care Reason For Visit: ANEMIA, SYNCOPE Discharge Diagnosis: Anemia due to GI bleed Condition on Discharge: Good Activity: Resume your previous activity Non-emergency contact: Primary Care Provider Call non-emergency contact if: your symptoms worsen and you have a fever Follow-up/Referrals: Rodriguez Presley MD [Primary Care Provider] - Diet: Regular Addtl Attending Provider Instructions: You were admitted into the hospital because of fainting episodes and having difficulty breathing. When you were admitted we provided multiple imaging studies to rule out stroke, pneumonia, and to see if there were any fractures when you fell on your carpeted stairs. The chest X-ray showed no pneumonia only old stable rib fractures. The Cervical Spine CT scan did not see any acute fractures. They found age related arthritis, bone spurs, and disc space narrowing. The Head CT did not see any acute bleeding, mass, or ischemia in your brain. It did find some age-related calcifications in the very small vessels of your brain but it has been there for a long time. The abdomen and Pelvis CT scan did not see any acute trauma. It did see small amounts of fluid in the lung but that it has decreased since October. It also found evidence of liver cirrhosis. Chest CT showed no acute fracture or collapsed lung. It did find a STABLE 4mm solid nodule in the right upper lung. Continue to have your PCP monitor the nodule. More importantly, when your hemoglobin was checked it was at an extremely low level. We provided 7 units of blood to replenish your red blood cells. We also provided iron to help replenish your red blood supply as well. After taking your history of GI bleeds and being on a blood thinner, we did a colonoscopy and an EGD to see if we could find the source of the bleeding. The colonoscopy showed diverticulosis, and a dark brown-black fluid that was possibly due to the iron medication that was given and less likely to be blood. The EGD came back normal. Today your hemoglobin is stable suggesting that the bleeding has stopped and that it was most likely in the small intestine somewhere. Your potassium was low at one point so gave you some potassium to bring it back to normal levels. Plan for After Hospital Visit Due to your heavy blood loss, we are going to discontinue your blood thinner. We also want to discontinue your oral iron. During your stay you were given a la rge amount of iron due to your bleeding so I am not concerned about your iron stores right now. However when thinking about future stool studies, iron can cause a positive stool test making it difficult to determine if you are truly bleeding or if its the iron. Please contact your PCP and recheck you "ferritin" levels in 3 months. If ferritin levels are low, would recommend IV iron. Please continue taking the oral B12 and recheck your B12 levels in 3 months. Medication Discontinue -Discontinue dabigatran etexilate (your blood thinner) -Discontinue oral iron supplementation. Check ferritin levels in 3 months. Continue -Oral B12 supplementation and get B12 levels rechecked in 3 months. -Other home medications Pending Studies at Discharge: No Stand-Alone Forms: My [facility] [address], Smoking Cessation Medications and DC Order Prescriptions: Continued tadalafil 20 mg tablet 20 mg PO DAILY PRN (Reason: sexual activity) Qty: 10 5RF Rx Instructions: administer approximately 30min before sexual activity; do not use more than 1 dose per 24hrs furosemide 40 mg tablet 40 mg PO BID Darzalex Faspro 1,800 mg-30,000 unit/15 mL solution 15 ml subcut MONTHLY Rx Instructions: 1800mg subcutaneously QMONTH; metoprolol succinate 50 mg tablet extended release 24 hr 50 mg PO QAM Qty: 90 3RF acetaminophen [Tylenol 8 Hour] 650 mg Tablet Extended Release 650 mg PO DIRECTED Rx Instructions: Take 650mg by mouth once weekly before infusion () diphenhydramine HCl [Benadryl] 25 mg Capsule 25 mg PO DIRECTED PRN (Reason: APPOINTMENTS) Rx Instructions: Take 25mg by mouth before infusions on dexamethasone 4 mg tablet 20 mg PO DIRECTED Rx Instructions: Take 20mg by mouth once month 3 hours before infusion () dapagliflozin propanediol 10 mg tablet 10 mg PO QAM Patient Comments: "taking for heart/not for diabetes" acyclovir 400 mg Tablet 400 mg PO BID Patient Comments: takes to prevent infection finasteride 5 mg tablet 5 mg PO DAILY Patient Comments: qam Rx Instructions: TAKE 1 TABLET BY MOUTH ONCE DAILY Discontinued dabigatran etexilate 150 mg capsule 150 mg PO BID Qty: 180 3RF polysaccharide iron complex 150 mg iron capsule 150 mg PO [id number] Rx Instructions: 150 mg orally every Mon, Wed, Fri Discharge Orders: Discharge Order (Routine); Ordered 12/17/24 Ordered By: Aidan Ferreira Admission Data Admit Date/Time: 12/12/24 18:37 Attending Provider: Mino Freire Admit Provider: Jas Hills Primary Care Provider: Rodriguez Presley Other Providers: Jas Hills; Renny Henson I; Winifred Smalls Other Interventions: Discharge Summary Assessment (RN) Last Done: 12/17/24 15:29 Supervising Physician Co-Signing Physician Notes I personally examined the patient and verified all atkinson points of history and exam, discussed case, and agree with decision making with Dr Ferreira Feeling good. Feeling up to going home. presentdiscussed in depth.. Vitals noted, in general he is awake and alert pleasant no distress. HEENT normocephalic atraumatic mucous membranes moist. Breathing unlabored no accessory muscle use good effort. Skin without rashes pallor or icterus. Neuro without focal deficits. Severe acute blood loss anemia requiring 7 units of transfusionmost likely small bowel bleeding in the setting of chronic anticoagulation for atrial fibrillationfortunately it appears the bleeding has stopped. Safe for homeholding anticoagulation for now. Capsule endoscopy as an outpatient. Long-term, could consider cautious resumption of anticoagulation or even partial dose anticoagulation to strike the balance between bleeding and stroke risk, but right now rather obviously will need to be protecting him from what had just happenedgiven the catastrophic nature of his profound anemia/GI bleeding. Continue to replace iron and B12. After considerationshe has gotten 3 days of 300 mg IV iron hereand oral iron is obviously less efficacious but would have his stools be heme positiveto allow for more flexibility of diagnostic workup if needed, for now we will send him home without oral iron, and recommend per iodic iron studies with IV replacement if he is low. Replace B12 p.o. - Recommend weekly CBC for the near future until he has proven stability, and then probably could space out to monthly - Check iron studies and B12 in about 3 months to allow ongoing adjustment/fine-tuning of replacement. otherwise as above Resident Activity Tracking Resident Involvement: Resident Care Provided Care Provided: Adult Hospital Medicine
--- NOTE | 2024-12-17 19:15 | Billing Data ---
Date of Service December 17, 2024 Coding Level of Care Code 64275 IN/OBS DISCH 30 MIN/LESS
== END 2024-12-17 15:49 | disposition home or self-care (01) | DRG 378 ==
LOC: SUATTDRO → ED 11:23 → 3W 18:37 → SUATTDRO 18:37 → 3W 21:35